=== PATIENT | female | born 1935 | race Caucasian/White ===

== ENCOUNTER 2023-12-11 18:41 | Emergency (ER) | payer MEDICARE, OTHER, SELFPAY ==
[2023-12-11 18:55] VITALS: BP 164/90
[2023-12-11 19:34] VITALS: BP 160/81
[2023-12-11 19:35] VITALS: BMI 27.9
[2023-12-11 19:58] LABS: % Basophils 0.4 % (0-2); % Eosinophils 0.3 % (0-6); % Lymphocytes 11.7 % (20.5-51.1); % Monocytes 6.9 % (1.7-9.3); % Neutrophils 79.7 % (42.2-75.2); Absolute Immature Granulocytes 0.1 10^3/uL (0-0.05); Absolute Lymphocytes 1.2 10^3/uL (1.2-3.4); Absolute Monocytes 0.7 10^3/uL (0.1-0.6); Absolute Neutrophils 7.9 10^3/uL (1.4-6.5); Hematocrit 40.8 % (37.0-47.0); Hemoglobin 14.2 g/dL (12.0-16.0); Mean Corp Hgb Conc. 34.8 g/dL (33.0-37.0); Mean Corpuscular Volume 91.9 fL (81.0-99.0); Nucleated Red Blood Cells % 0 %; Platelet Count 294 10^3/uL (130-400); Red Blood Cell Count 4.44 10^6/uL (4.20-5.40); Red Cell Dist. Width 13.2 % (11.5-14.5)
[2023-12-11 20:00] VITALS: BP 168/84
[2023-12-11 20:11] LABS: ALT (SGPT) 25 U/L (0-35); AST (SGOT) 27 U/L (14-36); Albumin 4.1 g/dl (3.5-5.0); Alkaline Phosphatase 83 U/L (38-126); Blood Urea Nitrogen 38 mg/dl (7-17); Calcium 9.5 mg/dl (8.4-10.2); Carbon Dioxide 32 mmol/L (22-30); Chloride 99 mmol/L (98-107); Estimated Creatinine Clearance 27 ml/min; Glucose 141 mg/dl (70-99); Sodium 134 mmol/L (135-145); Total Bilirubin 0.9 mg/dl (0.2-1.3); Total Protein 6.8 g/dl (6.3-8.2); eGFR 43.81
[2023-12-11 20:13] LABS: COVID-19 Antigen Negative (Negative)
[2023-12-11 20:25] LABS: NT-proBNP 255 pg/ml; Troponin I < 0.012 ng/ml
[2023-12-11 21:07] VITALS: BP 138/82
[2023-12-11] MEDS: NSS 500 IV (21:33)
[2023-12-11] MEDS: ATIVAN 0.5 MG IV (22:52)
[2023-12-12 00:02] VITALS: BP 91/52
--- NOTE | 2023-12-12 03:07 | ED.GENMED ---
History of Present Illness
General
Chief Complaint: Breathing Problem
Source: patient and family
Exam Limitations: none
Time Seen by Provider: 12/11/23 19:17
Nursing documentation reviewed up to this point in time: agreed with
Travel History
Have you had any contact with someone who has COVID-19?: No
Do you have any symptoms of coronavirus? Fever > 100 degrees, chills, cough, shortness of breath, sore throat, loss of taste or smell, muscle aches, or headache?: No
History of Present Illness
History of Present Illness:
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
evaluation of shortness of breath. Patient had a Mohs procedure on on the right side of her face. Patient says that since she had the procedure she has been very short of breath but that her symptoms intermittent. She says there is no
clear trigger or relieving factors. Family says it has been associated with significant anxiety. No chest pain. No coughing. No fevers or chills. Apparently patient thought potentially it could be related to doxycycline which was started
postoperatively after her Mohs procedure and so the dose of this was cut in half but her symptoms did not improve. Came to the emergency room for assessment. At the time my assessment she says she is not having shortness of breath but does feel
very anxious.
Past History
Past History
ED Past Medical History: HTN, Hypercholesterolemia, Other (arthritis) and Other (Chronic low back pain, narcotic dependent)
ED Past Surgical History: Cholecystectomy, Gynecological (Hysterectomy) and Orthopedic
Social History
Tobacco: Non-smoker
Alcohol: None
Personal:
Living: alone
Employment: Retired
Family History
Family History: Other (Noncontributory)
Review of Systems
Review of Systems
All Other Systems: ROS reviewed and negative except as documented in HPI and ROS
Constitutional: Reports chills; Denies fever
EENT: Denies sore throat or runny nose
Respiratory: Reports trouble breathing; Denies cough
Cardiac: Denies chest pain, diaphoresis or palpitations
ABD/GI: Denies abdominal pain, nausea, vomiting or diarrhea
: Denies flank pain
Musculoskeletal: Denies neck pain or back pain
Neurological: Denies headache, weakness or numbness
Psychiatric: Reports anxiety
Phy Exam
Physical Exam
Physical Exam:
General: Awake, alert, oriented x3 somewhat hard of hearing; no acute distress
Head: Normocephalic, atraumatic; she has a clean appearing incision with ecchymosis on the right side of her face along the lateral margin of the nose and into the maxillary region
Eyes: Conjunctiva normal, EOMI, pupils equal round reactive to light bilateral
Throat: Airway intact, handling secretions
Neck: Trachea midline, supple without meningismus
Lungs: Clear to auscultation bilaterally, no wheezing, rales, rhonchi
Heart: Regular rate and rhythm, no murmurs, gallops, or rubs
Abd: Soft, non distended, nontender
Neuro: Cranial nerves grossly intact, speech fluid
Skin: no rash
Extremities: No edema in extremities, equal pulses in all extremities
Scores
Heart Failure Risk
Heart Failure Risk Score: Not Applicable
Heart Score for Chest Pain Patients
STEMI patient?: Not applicable
Withdrawal Assessment of Alcohol
Withdrawal Assessment Completed?: Not applicable
Course
Orders/Labs/Results
Orders:
Orders
12/11/23 18:59
EKG [Electrocardiogram (*1)] Urgent
Reason for Study: Shortness of Breath
12/11/23 19:00
EKG- Treatment ONCE
12/11/23 19:21
CR Chest Portable - 1 View Urgent
Comment:
Reason For Exam: sob
Reason Study Needs to be Portable: Unable to Transport
12/11/23 19:48
COVID-19 Antigen Urgent
Source: Nasal Swab
Complete Blood Count/With Diff Urgent
Comprehensive Metabolic Panel Urgent
NT-proBNP Urgent
Troponin I Urgent
Influenza A+B Rapid Molecular Urgent
JOSE Source: Nasal Swab
Specimen Description:
12/11/23 21:18
CT Chest Pe Study Urgent
Comment:
Reason For Exam: sob, tachycardia, recent prolonged procedure
12/11/23 21:19
0.9% Sodium Chloride 500 ml [Nss] 500 ml IV BOLUS
12/11/23 22:45
Lorazepam [Ativan] 0.5 mg IV NOW STA
Abnormal Lab Results
12/11/23
19:48
MCH 32.0 H pg
(27.0-31.0)
Abs Immat Gran (auto) 0.1 H 10^3/uL
(0-0.05)
Absolute Neuts (auto) 7.9 H 10^3/uL
(1.4-6.5)
Absolute Monos (auto) 0.7 H 10^3/uL
(0.1-0.6)
Immature Gran % 1.0 H %
(0-0.5)
Neutrophils % 79.7 H %
(42.2-75.2)
Lymphocytes % 11.7 L %
(20.5-51.1)
Sodium 134 L mmol/L
(135-145)
Carbon Dioxide 32 H mmol/L
(22-30)
BUN 38 H mg/dl
(7-17)
Creatinine 1.2 H mg/dL
(0.6-1.0)
Glucose 141 H mg/dl
(70-99)
12/11/23 19:48
12/11/23 19:48
Vital Signs
Initial and Last Documented VS:
Initial Vital Signs
Temp Pulse Resp BP Pulse Ox
36.8 C 98 20 164/90 98
12/11/23 18:55 12/11/23 18:55 12/11/23 18:55 12/11/23 18:55 12/11/23 18:55
Last Documented Vital Signs
Temp Pulse Resp BP Pulse Ox
36.8 C 66 29 91/52 97
12/11/23 18:55 12/12/23 02:00 12/11/23 22:00 12/12/23 00:02 12/12/23 02:00
MDM/Problems Addressed
Differential Diagnosis Includes:
Pneumothorax, pneumonia, pulmonary embolism, CHF, anemia, anxiety
MDM/Problems Addressed:
88-year-old female presents for evaluation of intermittent shortness of breath and anxiety since a Mohs procedure on . Hypertensive but otherwise normal vitals on arrival�blood pressure normalized by my assessment. Physical exam as
documented notably lungs clear to auscultation bilaterally. Plan to place an IV check labs including CBC and CMP, troponin, BNP. Will swab for COVID and flu. Start with chest x-ray with a low threshold for CTA to rule out PE given her history of
DVT. Check an EKG. Monitor closely reassess after the above.
Labs reviewed: CBC shows no anemia, CMP shows mild ASTER no other clinically significant abnormalities. Her troponin is undetectable. proBNP is not significantly elevated. Her chest x-ray showed no acute disease and so patient was sent for CTA to
rule out PE this was negative for any acute pathology. EKG shows sinus rhythm. Patient very anxious on reassessment requesting some medication for anxiety she was given a low-dose of Ativan and was feeling much better she said her symptoms greatly
improved. She is now resting comfortably in bed. Family says she has not slept very much in the past 2 days because she has been very anxious. I think this is playing a large role in her symptoms. Explained to family that given her age
prescribing benzodiazepines especially given that she is on chronic opiates as potentially unsafe and so advised to follow-up with primary doctor to discuss further management. Will plan to discharge in the morning; family will pick her up until 6
AM.
Chronic conditions affecting care:
History of DVT�higher risk for thromboembolic disease
Acute Exacerbation and/or Progression of Chronic Illness:
Acutely hypertensive normalized with no intervention continue to monitor but no additional antihypertensive indicated at present
Acute Exacerbation and/or Progression of Chronic Illness: HTN
*Radiology
Radiology exam reviewed: preliminary read by ED provider and radiology read reviewed
*Pulse Oximetry
Patient hypoxic: no
*Critical Care Note
Total Time (30-74mins, 75-104mins- exclusive of procedures): Not Applicable
ED Attending Note
-
Portions of this chart may have been created with voice recognition software.� Occasional wrong word or��sound alike� substitutions may have occurred due to the inherent limitations of voice recognition software.
Discharge Plan
Departure
Patient Disposition: Home (Routine Discharge)
Date of Disposition: 12/12/23
Time of Disposition: 03:06
Admit to doctor: DC @ 6AM
Patient with high blood pressure during this ER visit?: Yes
Discharge Problem:
Anxiety, ASTRE (acute kidney injury), Dyspnea, Abnormal chest x-ray
Instructions: Shortness of Breath (Dyspnea) (DC)
Prescriptions:
No Action
aspirin 81 MG tablet,chewable
81 mg PO HS
levothyroxine 100 MCG tablet
100 mcg PO DAILY
paroxetine HCl 20 MG tablet
20 mg PO DAILY
hydrochlorothiazide 25 MG tablet
25 mg PO DAILY
Iron
65 mg PO DAILY@1400
oxycodone 10 MG tablet
10 mg PO Q4HPRN PRN (Reason: pain)
cholecalciferol (vitamin D3) 2,000 UNIT tablet
2,000 unit PO DAILY@1400
biotin 1,000 MCG tablet,chewable
1,000 mcg PO HS
atorvastatin 40 MG tablet
40 mg PO QPM Qty: 90 3RF
metoprolol succinate 12.5 MG tablet extended release 24 hr
12.5 mg PO DAILY Qty: 90 4RF
ranolazine 500 MG tablet extended release 12 hr
500 mg PO BID Qty: 60 6RF
pantoprazole [Protonix] 20 MG tablet,delayed release (DR/EC)
40 mg PO DAILY 14 Days Qty: 14 0RF
Referrals:
Ivory White PA-C [Family Provider] - Follow up in 2-3 days
Activity Restrictions/Additional Instructions:
YOU WERE FOUND TO HAVE AN INCIDENTAL NODULE NEAR YOUR TRACHEA ON X-RAY TODAY. YOU MUST FOLLOW UP WITH YOUR PRIMARY DOCTOR TO HAVE REPEAT IMAGING FOLLOW UP.
Thank you for visiting the Emergency Department at [facility].
1. Please schedule a follow up appointment as directed. Call first thing tomorrow morning to make an appointment.
2. If indicated, please take your medications as instructed and indicated on discharge paperwork.
3. If any of your symptoms do not improve, or persist, or become more severe within 6-12 hours, please return to the emergency department for further care.
4. Please return to the emergency department if you develop a headache, neck pain/stiffness, fever greater than 100.4F, chest pain, shortness of breath, persistent nausea, vomiting, slurred speech, difficulty walking, numbness/tingling, weakness,
signs of infection or any other symptoms that are worrisome to you.
Please call [phone] if you have any questions.
Interventions
Interventions:
*Risk Screen - Suicide Last Done: 12/11/23 18:55
*General Assessment Last Done: 12/11/23 18:55
*Neglect/Abuse Screening Last Done: 12/11/23 18:55
ED- Fall Risk Assessment Last Done: 12/11/23 19:35
*ED COVID-19 Vaccine History Last Done: 12/11/23 19:35
ED- Cardiac Assessment Last Done: 12/11/23 19:35
ED- Pulmonary Assessment Last Done: 12/11/23 19:35
--- NOTE | 2023-12-12 04:26 | EDRN ---
Found pt sitting in chair next to stretcher which had both side rails up. Pt had a blanket wrapped around her and said she had an accident. Pt removed wet clothing. This RN gave pt paper scrub top/pants and slipper socks which pt put on herself.
Pt given clothing bags and packaged her clothing. Pt requested viviana shamar to drink which was provided. Pt's gait in room steady. Pt got herself back on the stretcher declining this RN's assistance. Pt aware she is waiting for her family to
return and pick her up around 0600. Pt offers no complaints.
--- NOTE | 2023-12-12 06:13 | EDRN ---
D/C transport here. Pt changing into clothing that was brought from home.
== END 2023-12-12 06:21 | disposition home or self-care (01) ==
LOC: EMR 18:41
PROVIDERS: EMERGENCY PHYSICIAN Emergency Medicine; FAMILY PHYSICIAN Physician Assistant Medical
DX: F41.9 Anxiety disorder, unspecified (principal); N17.9 Acute kidney failure, unspecified; R06.00 Dyspnea, unspecified; R93.89 Abnormal findings on diagnostic imaging of other specified body structures; E78.00 Pure hypercholesterolemia, unspecified; I11.0 Hypertensive heart disease with heart failure; I50.9 Heart failure, unspecified
CPT/HCPCS: 99284; 96374; 71045; 71275; 80053; 83880; 84484; 85025; 87502; 87811; 93005; Q9967

== ENCOUNTER 2023-12-12 12:38 | Emergency (ER) | payer MEDICARE, OTHER, SELFPAY ==
[2023-12-12 12:55] VITALS: BP 139/78
[2023-12-12 13:22] LABS: % Basophils 0.3 % (0-2); % Eosinophils 0.2 % (0-6); % Immature Granulocytes 0.8 % (0-0.5); % Lymphocytes 11.9 % (20.5-51.1); % Monocytes 5.7 % (1.7-9.3); % Neutrophils 81.1 % (42.2-75.2); Absolute Immature Granulocytes 0.1 10^3/uL (0-0.05); Absolute Lymphocytes 1.2 10^3/uL (1.2-3.4); Absolute Monocytes 0.6 10^3/uL (0.1-0.6); Absolute Neutrophils 8.4 10^3/uL (1.4-6.5); Hemoglobin 14.1 g/dL (12.0-16.0); Mean Corp Hgb Conc. 34.4 g/dL (33.0-37.0); Mean Platelet Volume 9.1 fL (7.4-10.4); Nucleated Red Blood Cells % 0 %; Platelet Count 284 10^3/uL (130-400); Red Blood Cell Count 4.41 10^6/uL (4.20-5.40); Red Cell Dist. Width 13.2 % (11.5-14.5); White Blood Cell Count 10.4 10^3/uL (4.8-10.8)
[2023-12-12 13:34] LABS: ALT (SGPT) 26 U/L (0-35); AST (SGOT) 31 U/L (14-36); Albumin 3.9 g/dl (3.5-5.0); Alkaline Phosphatase 78 U/L (38-126); Blood Urea Nitrogen 33 mg/dl (7-17); Calcium 9.2 mg/dl (8.4-10.2); Carbon Dioxide 25 mmol/L (22-30); Chloride 100 mmol/L (98-107); Glucose 99 mg/dl (70-99); Sodium 132 mmol/L (135-145); Total Bilirubin 1.1 mg/dl (0.2-1.3); Total Protein 6.5 g/dl (6.3-8.2); eGFR 54.53
[2023-12-12 13:46] LABS: Troponin I 0.012 ng/ml
[2023-12-12 14:42] VITALS: BP 159/68
[2023-12-12 14:49] VITALS: BMI 28.5
[2023-12-12 15:00] VITALS: BP 150/62
--- NOTE | 2023-12-12 15:50 | ED.GENMED ---
History of Present Illness
General
Chief Complaint: Chest Pain
Source: patient and family
Exam Limitations: none
Time Seen by Provider: 12/12/23 15:08
Nursing documentation reviewed up to this point in time: agreed with
Travel History
Have you had any contact with someone who has COVID-19?: No
Do you have any symptoms of coronavirus? Fever > 100 degrees, chills, cough, shortness of breath, sore throat, loss of taste or smell, muscle aches, or headache?: No
History of Present Illness
History of Present Illness:
Patient is an 88-year-old female presents to the ER for evaluation. Patient was seen here last night for evaluation. Patient has a history of hypertension hyperlipidemia chronic back pain on opiates with spinal stimulator DVT not
anticoagulated. Patient recently had a Mohs procedure on her face , 4 days ago and family reports since then patient is been very anxious not able to sleep. Family reports was very anxious going into the surgery and has not been able to
sleep since. Patient had a full workup here in the ER last night including a normal CT to rule out PE. She was diagnosed with mild acute kidney insufficiency had an unremarkable troponin BNP was not significantly elevated. Patient is on chronic
opiates and therefore a prescription for benzo was not sent home with patient however she was given a low-dose of Ativan IV. Family reports she slept here until early this morning but as soon as they got her home she was up again very anxious.
Since being here they did go to patient's family doctor who prescribed her a very small dose of Ativan however they have not been able to get it filled yet and patient had another anxiety episode at home. They report patient felt very anxious and
complained of chest pain at the time however symptoms have since resolved. This is what prompted them to come back to the ER. They do report however patient is now once again calm here in the ER.
I called patient's pharmacy [facility] who reports the prescription reads a 0.5 mg of Ativan but give 1/2-1/4 of a tablet.
Patient presents awake alert and has no complaints. Denies any chest pain shortness of breath.
Past History
Past History
ED Past Medical History: HTN, Hypercholesterolemia, Other (arthritis) and Other (Chronic low back pain, narcotic dependent)
ED Past Surgical History: Cholecystectomy, Gynecological (Hysterectomy) and Orthopedic
Social History
Tobacco: Non-smoker
Alcohol: None
Personal:
Living: alone
Employment: Retired
Family History
Family History: Other (Noncontributory)
Review of Systems
Review of Systems
Allergies reviewed?: Yes
Other source history: family
All Other Systems: ROS reviewed and negative except as documented in HPI and ROS
Constitutional: Reports no symptoms; Denies fever, fatigue or chills
EENT: Reports no symptoms
Respiratory: Reports no symptoms
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
ABD/GI: Reports no symptoms
: Reports no symptoms
Musculoskeletal: Reports no symptoms
Skin: Reports no symptoms
Psychiatric: Reports no symptoms
Phy Exam
General Physical Exam
General Presentation: no apparent distress
General age: appears stated age
General Skin: warm and dry
General Habitus: elderly
General Mental: alert
General Hydration: appears well hydrated
Cardiovascular Exam
Cardiovascular Exam: regular rate/rhythm, no murmur and normal peripheral pulses
Pulmonary Exam
Pulmonary Exam: lungs clear and no respiratory distress
Neurological Exam
Neurological Exam: alert and oriented x3
Musculoskeletal Exam
Musculoskeletal Exam: full ROM
Skin Exam
Skin Exam: normal color and warm/dry
Psychiatric Exam
Psychiatric Exam: normal mood/affect
Scores
Heart Score for Chest Pain Patients
STEMI patient?: Not applicable
Course
Orders/Labs/Results
Orders:
Orders
12/12/23 12:47
Electrocardiogram (*1) Urgent
Reason for Study: Chest Pain
EKG- Treatment ONCE
12/12/23 13:10
Comprehensive Metabolic Panel Urgent
12/12/23 13:11
Complete Blood Count/With Diff Urgent
Troponin I Urgent
12/12/23 16:10
Lorazepam [Ativan] 0.5 mg PO NOW STA
Abnormal Lab Results
12/12/23 12/12/23
13:10 13:11
MCH 32.0 H pg
(27.0-31.0)
Abs Immat Gran (auto) 0.1 H 10^3/uL
(0-0.05)
Absolute Neuts (auto) 8.4 H 10^3/uL
(1.4-6.5)
Immature Gran % 0.8 H %
(0-0.5)
Neutrophils % 81.1 H %
(42.2-75.2)
Lymphocytes % 11.9 L %
(20.5-51.1)
Sodium 132 L mmol/L
(135-145)
BUN 33 H mg/dl
(7-17)
12/12/23 13:11
12/12/23 13:10
Vital Signs
Initial and Last Documented VS:
Initial Vital Signs
Temp Pulse Resp BP Pulse Ox
98.3 F 84 16 139/78 98
12/12/23 12:55 12/12/23 12:55 12/12/23 12:55 12/12/23 12:55 12/12/23 12:55
Last Documented Vital Signs
Temp Pulse Resp BP Pulse Ox
98.3 F 71 14 150/62 98
12/12/23 12:55 12/12/23 15:30 12/12/23 15:30 12/12/23 15:00 12/12/23 12:55
MDM/Problems Addressed
Differential Diagnosis Includes:
Not limited to anxiety
MDM/Problems Addressed:
Patient as document is an 88-year-old female who presents to the ER complaining of feeling very anxious and not being able to sleep. Patient was seen here last night into this morning and discharged home. She had a full workup which was negative
for PE cardiac troponin negative no acute cardiac or respiratory cause of the patient's symptoms. Patient has been very anxious since her Mohs surgery several days ago. She is on chronic pain medication was not given Ativan last night when she was
discharged however patient did see family doctor today who prescribed a very small dose. (Pt has not take her pain meds today).
Patient was prescribed Ativan 0.5 mg only to take: 0.25 mg or 0.125 mg as needed by pcp. I called [facility] in [place] to confirm dose.
Family reports since leaving PCPs office patient had an anxiety attack again and they were not even able to get this prescription filled. Currently she is very calm in the ER and has no complaints. Beings the patient had a full workup less than
24 hours ago and is in no acute distress here and is likely anxiety will give patient an oral dose here which will give patient's family a time to get patient home and settled unable to get the prescription from the pharmacy.
*Pulse Oximetry
Patient hypoxic: no
*EKG
Interpreted by ED Provider?: Yes
Interpretation: normal
Heart Rate: 81
Rate: normal
Rhythm: sinus
Ischemia: no ischemia
*Critical Care Note
Total Time (30-74mins, 75-104mins- exclusive of procedures): Not Applicable
Data Reviewed
Review of Other/Old Records Reveals: Other (ED visit from last night )
ED Attending Note
-
Portions of this chart may have been created with voice recognition software.� Occasional wrong word or��sound alike� substitutions may have occurred due to the inherent limitations of voice recognition software.
Discharge Plan
Departure
Patient Disposition: Home (Routine Discharge)
Date of Disposition: 12/12/23
Time of Disposition: 16:38
Patient with high blood pressure during this ER visit?: Yes
Condition: Fair
Covid-19: Not Applicable
Discharge Problem:
Anxiety
Instructions: Anxiety, Adult (DC)
Prescriptions:
No Action
aspirin 81 MG tablet,chewable
81 mg PO HS
levothyroxine 100 MCG tablet
100 mcg PO DAILY
paroxetine HCl 20 MG tablet
20 mg PO DAILY
hydrochlorothiazide 25 MG tablet
25 mg PO DAILY
Iron
65 mg PO DAILY@1400
oxycodone 10 MG tablet
10 mg PO Q4HPRN PRN (Reason: pain)
cholecalciferol (vitamin D3) 2,000 UNIT tablet
2,000 unit PO DAILY@1400
biotin 1,000 MCG tablet,chewable
1,000 mcg PO HS
atorvastatin 40 MG tablet
40 mg PO QPM Qty: 90 3RF
metoprolol succinate 12.5 MG tablet extended release 24 hr
12.5 mg PO DAILY Qty: 90 4RF
ranolazine 500 MG tablet extended release 12 hr
500 mg PO BID Qty: 60 6RF
pantoprazole [Protonix] 20 MG tablet,delayed release (DR/EC)
40 mg PO DAILY 14 Days Qty: 14 0RF
Referrals:
Ivory White PA-C [Family Provider] -
Activity Restrictions/Additional Instructions:
Be sure to take medication/Ativan as previously instructed by your family physician. Stay well-hydrated. Follow-up with family docto in next several days for reevaluation return if any worsening of symptoms
Interventions
Interventions:
*Risk Screen - Suicide Last Done: 12/12/23 14:49
*General Assessment Last Done: 12/12/23 14:49
*Neglect/Abuse Screening Last Done: 12/12/23 14:49
ED- Fall Risk Assessment Last Done: 12/12/23 14:49
*ED COVID-19 Vaccine History Last Done: 12/12/23 12:55
ED- Cardiac Assessment Last Done: 12/12/23 14:49
[2023-12-12] MEDS: ATIVAN 0.5 MG PO (16:15)
== END 2023-12-12 16:47 | disposition home or self-care (01) ==
LOC: EMR 12:38
PROVIDERS: Emergency Medicine; EMERGENCY PHYSICIAN Emergency Medicine; FAMILY PHYSICIAN Physician Assistant Medical
DX: F41.9 Anxiety disorder, unspecified (principal); I10 Essential (primary) hypertension; E78.00 Pure hypercholesterolemia, unspecified
CPT/HCPCS: 99284; 80053; 84484; 85025; 93005

== ENCOUNTER → 2024-05-18 12:17 | Outpatient (REF) | payer MEDICARE, OTHER, SELFPAY | LOC: PAVMRI 12:17 | PROVIDERS: ATTENDING PHYSICIAN Specialist; FAMILY PHYSICIAN Physician Assistant Medical | DX: M47.812 Spondylosis without myelopathy or radiculopathy, cervical region (principal) | CPT/HCPCS: 72141 ==

== ENCOUNTER 2024-05-29 11:22 | Emergency (ER) | payer MEDICARE, OTHER, SELFPAY ==
[2024-05-29 11:29] VITALS: BP 144/74
[2024-05-29 12:00] VITALS: BP 132/63
[2024-05-29 12:03] VITALS: BP 149/69
[2024-05-29 13:00] VITALS: BP 101/71
--- NOTE | 2024-05-29 13:03 | ED.MUSCINJ ---
HPI-Injury
General
Chief Complaint: Fall
Source: patient
Exam Limitations: none
Time Seen by Provider: 05/29/24 12:36
History of Present Illness-Injury
Initial Injury comments:
89-year-old female presents after trip and fall. She was going up the 2 steps from the garage into her house and tripped scraping her right byrd against the edge of the step. She also landed on her right shoulder. She complains of slight headache
and neck pain as well. She is not anticoagulated. No other complaints at this time
Past History
Past History
ED Past Medical History: HTN, Hypercholesterolemia, Other (arthritis) and Other (Chronic low back pain, narcotic dependent)
ED Past Surgical History: Cholecystectomy, Gynecological (Hysterectomy) and Orthopedic
Social History
Tobacco: Non-smoker
Alcohol: None
Personal:
Living: alone
Employment: Retired
Family History
Family History: Other (Noncontributory)
Phy Exam
Physical Exam
Physical Exam:
General: Well-appearing female no acute respiratory distress
HEENT: Normocephalic atraumatic
Heart: Regular rate and rhythm no murmurs
Lungs: Clear no wheeze
Abdomen soft nontender nondistended no guarding or rebound
Musculoskeletal exam: The patient is tender about the cervical spine at the superior aspect of the right shoulder. There is no deformities noted to the shoulder.
Injury Course
Orders/Labs/Results
Orders:
Orders
05/29/24 11:32
Shoulder, Right, Trauma [CR Shoulder, Trauma - Right] Urgent
Comment:
Reason For Exam: fall
05/29/24 12:51
CT Cervical Spine W/o Iv Contr Urgent
Comment:
Reason For Exam: fall, neck pain
CT Head W/o Iv Contrast Urgent
Comment:
Reason For Exam: fall
05/29/24 14:27
Oxycodone/Acetaminophen [Percocet 5/325] 1 tablet PO NOW STA
MDM/Problems Addressed
Differential Diagnosis Includes:
Fall with right shoulder neck pain and headache. She also has skin tears to the right byrd. Personally visualized x-rays of the right shoulder which demonstrate subluxation but no dislocation and no obvious fracture CT of the head and cervical
spine are pending local wound care provided to the skin tear but no sutures indicated
*Critical Care Note
Total Time (30-74mins, 75-104mins- exclusive of procedures): Not Applicable
Update Note
Update Note:
CT of the head and cervical spine showed no acute traumatic injury. X-ray of the shoulder shows no fracture but there is an AC joint separation. Patient will be placed in a sling advised supportive care stable for discharge
ED Attending Note
-
Portions of this chart may have been created with voice recognition software.� Occasional wrong word or��sound alike� substitutions may have occurred due to the inherent limitations of voice recognition software.
Discharge Plan
Departure
Patient Disposition: Home (Routine Discharge)
Date of Disposition: 05/29/24
Time of Disposition: 14:29
Patient with high blood pressure during this ER visit?: No
Discharge Problem:
Acromioclavicular (AC) joint injury
Instructions: Muscle and Bone Pain (DC)
Prescriptions:
No Action
aspirin 81 MG tablet,chewable
81 mg PO HS
levothyroxine 100 MCG tablet
100 mcg PO DAILY
paroxetine HCl 20 MG tablet
20 mg PO DAILY
hydrochlorothiazide 25 MG tablet
25 mg PO DAILY
Iron
65 mg PO DAILY@1400
oxycodone 10 MG tablet
10 mg PO Q4HPRN PRN (Reason: pain)
cholecalciferol (vitamin D3) 2,000 UNIT tablet
2,000 unit PO DAILY@1400
biotin 1,000 MCG tablet,chewable
1,000 mcg PO HS
atorvastatin 40 MG tablet
40 mg PO QPM Qty: 90 3RF
metoprolol succinate 12.5 MG tablet extended release 24 hr
12.5 mg PO DAILY Qty: 90 4RF
ranolazine 500 MG tablet extended release 12 hr
500 mg PO BID Qty: 60 6RF
pantoprazole [Protonix] 20 MG tablet,delayed release (DR/EC)
40 mg PO DAILY 14 Days Qty: 14 0RF
Referrals:
Ever Godinez MD [Active] -
Ivory White PA-C [Family Provider] -
Activity Restrictions/Additional Instructions:
Use sling for support. You may ice for swelling. Change dressing daily on the leg. Replace with antibacterial ointment and gauze dressing. Follow up with orthopedics for further evaluation if needed.
Interventions
Interventions:
*Risk Screen - Suicide Last Done: 05/29/24 11:29
*General Assessment Last Done: 05/29/24 11:29
*Neglect/Abuse Screening Last Done: 05/29/24 11:29
*ED COVID-19 Vaccine History Last Done: 05/29/24 12:00
ED-Musculoskeletal Assessment Last Done: 05/29/24 12:00
ED- Neurological Assessment Last Done: 05/29/24 12:00
ED-Skin Assessment Last Done: 05/29/24 12:00
Discharge Date and Time
Print Language: BULGARIAN
[2024-05-29 13:46] VITALS: BP 132/65
[2024-05-29 14:00] VITALS: BP 123/70
== END 2024-05-29 15:18 | disposition home or self-care (01) ==
LOC: EMR 11:22
PROVIDERS: EMERGENCY PHYSICIAN Emergency Medicine; FAMILY PHYSICIAN Physician Assistant Medical
DX: S49.91XA Unspecified injury of right shoulder and upper arm, initial encounter (principal); W01.0XXA Fall on same level from slipping, tripping and stumbling without subsequent striking against object, initial encounter; I10 Essential (primary) hypertension; E78.00 Pure hypercholesterolemia, unspecified; M19.90 Unspecified osteoarthritis, unspecified site; G89.29 Other chronic pain; Z90.49 Acquired absence of other specified parts of digestive tract; Z90.710 Acquired absence of both cervix and uterus
CPT/HCPCS: 99284; 70450; 72125; 73030

== ENCOUNTER 2024-06-28 13:34 | Inpatient (IN) | payer MEDICARE, OTHER, SELFPAY ==
[2024-06-27 16:54] VITALS: BP 134/76
[2024-06-27 17:20] LABS: % Basophils 0.1 % (0-2); % Immature Granulocytes 0.4 % (0-0.5); % Lymphocytes 5.7 % (20.5-51.1); % Monocytes 2.4 % (1.7-9.3); % Neutrophils 91.4 % (42.2-75.2); Absolute Immature Granulocytes 0.1 10^3/uL (0-0.05); Absolute Lymphocytes 0.7 10^3/uL (1.2-3.4); Absolute Monocytes 0.3 10^3/uL (0.1-0.6); Absolute Neutrophils 10.6 10^3/uL (1.4-6.5); Hematocrit 36.1 % (37.0-47.0); Hemoglobin 12.4 g/dL (12.0-16.0); Mean Corp Hgb Conc. 34.3 g/dL (33.0-37.0); Mean Corpuscular Hgb 31.1 pg (27.0-31.0); Mean Corpuscular Volume 90.5 fL (81.0-99.0); Nucleated Red Blood Cells % 0 %; Platelet Count 328 10^3/uL (130-400); Red Blood Cell Count 3.99 10^6/uL (4.20-5.40); Red Cell Dist. Width 13.2 % (11.5-14.5); White Blood Cell Count 11.6 10^3/uL (4.8-10.8)
[2024-06-27 17:32] LABS: ALT (SGPT) 12 U/L (0-35); AST (SGOT) 19 U/L (14-36); Albumin 4.3 g/dl (3.5-5.0); Alkaline Phosphatase 80 U/L (38-126); Blood Urea Nitrogen 33 mg/dl (7-17); Calcium 9.9 mg/dl (8.4-10.2); Carbon Dioxide 31 mmol/L (22-30); Chloride 97 mmol/L (98-107); Glucose 210 mg/dl (70-99); Potassium 4.7 mmol/L (3.5-5.1); Sodium 139 mmol/L (135-145); Total Bilirubin 0.6 mg/dl (0.2-1.3); Total Protein 6.7 g/dl (6.3-8.2); eGFR 54.19
[2024-06-27 17:42] LABS: Troponin I 0.026 ng/ml
[2024-06-27 18:17] VITALS: BP 129/66
[2024-06-27 19:40] VITALS: BMI 25.7
[2024-06-27] MEDS: HEPARIN 3500 UNITS IV (20:12)
--- NOTE | 2024-06-27 20:14 | HPS.HSE ---
Addendum entered and electronically signed by Tip Hutchins MD 06/27/24 20:46:
NOTE ENTERED ON WRONG PATIENT. DISREGARD THIS DOCUMENT.
NOTE ENTERED ON WRONG PATIENT. DISREGARD THIS DOCUMENT.
NOTE ENTERED ON WRONG PATIENT. DISREGARD THIS DOCUMENT.
NOTE ENTERED ON WRONG PATIENT. DISREGARD THIS DOCUMENT.
NOTE ENTERED ON WRONG PATIENT. DISREGARD THIS DOCUMENT.
NOTE ENTERED ON WRONG PATIENT. DISREGARD THIS DOCUMENT.
NOTE ENTERED ON WRONG PATIENT. DISREGARD THIS DOCUMENT.
NOTE ENTERED ON WRONG PATIENT. DISREGARD THIS DOCUMENT.
NOTE ENTERED ON WRONG PATIENT. DISREGARD THIS DOCUMENT.
NOTE ENTERED ON WRONG PATIENT. DISREGARD THIS DOCUMENT.
NOTE ENTERED ON WRONG PATIENT. DISREGARD THIS DOCUMENT.
NOTE ENTERED ON WRONG PATIENT. DISREGARD THIS DOCUMENT.
NOTE ENTERED ON WRONG PATIENT. DISREGARD THIS DOCUMENT.
Addendum entered and electronically signed by Tip Hutchins MD 06/27/24 20:17:
NOTE ENTERED ON WRONG PATIENT. DISREGARD THIS DOCUMENT.
Original Note:
Family Physician
-
Family Physician: Ivory White
Chief Complaint
-
weakness
History of Present Illness
76-year-old female past medical history of hypertension, hypercholesteremia, osteoarthritis, right breast cancer, neurogenic bladder presenting with weakness. Patient has had a UTI for the past several weeks with symptoms of urinary frequency and
has been on several antibiotics. She still has urinary frequency. She denies pain with urination. Denies fevers or chills. She has had difficulty with balance. She has had several falls and 3 falls within the past day. She did hit her head
with the fall but denies headache or nausea or vomiting. Denies any chest pain or shortness of breath.
Denies smoking or alcohol use.
Medical History
Past Medical History
Past Medical History: Reports Other (hypertension, hypercholesteremia, osteoarthritis, right breast cancer, neurogenic bladder )
Past Surgical History: Reports None
Social History
Tobacco: Non-smoker
Alcohol: None
Drug: None
Family History
Family History: Not pertinent
Allergies / Home Medications
Allergies reflects when Allergies were last updated in [facility].
Home Medications with original date entered in [facility]
Allergy/Medication List:
Allergies
Allergy/AdvReac Type Severity Reaction Status Date / Time
Cephalosporins Allergy Unknown Verified 06/27/24 16:57
clindamycin HCl Allergy Hives Verified 06/27/24 16:57
[From Cleocin]
clindamycin palmitate HCl Allergy Hives Verified 06/27/24 16:57
[From Cleocin]
clindamycin phosphate Allergy Hives Verified 06/27/24 16:57
[From Cleocin]
penicillin G Allergy Hives Verified 06/27/24 16:57
Penicillins Allergy Hives Verified 06/27/24 16:57
Sulfa (Sulfonamide Allergy Swelling Verified 06/27/24 16:57
Antibiotics)
sulfasalazine Allergy Unknown Verified 06/27/24 16:57
clindamycin HCl Allergy Unknown Hives Uncoded 06/27/24 16:57
clindamycin palmitate HCl Allergy Unknown Hives Uncoded 06/27/24 16:57
clindamycin phosphate Allergy Unknown Hives Uncoded 06/27/24 16:57
Home Medications
cholecalciferol (vitamin D3) 50 mcg (2,000 unit) tablet 2,000 unit PO DAILY 01/16/19
oxycodone 10 mg tablet 10 mg PO Q4HPRN PRN severe pain 01/16/19
acetaminophen 500 mg tablet (Tylenol Extra Strength) 1,000 mg PO Q6HPRN PRN mild pain 06/27/24
amlodipine 2.5 mg tablet 2.5 mg PO DAILY 06/27/24
atorvastatin 40 mg tablet 40 mg PO Q48H 06/27/24
cephalexin 500 mg capsule 500 mg PO BID 06/27/24
duloxetine 60 mg capsule,delayed release 60 mg PO HS 06/27/24
hydrochlorothiazide 50 mg tablet 50 mg PO Q48H 06/27/24
levothyroxine 88 mcg tablet 88 mcg PO DAILY 06/27/24
ondansetron HCl 4 mg tablet 4 mg PO Q6HPRN PRN nausea 06/27/24
pantoprazole 20 mg tablet,delayed release (Protonix) 40 mg PO DAILYPRN PRN gerd 06/27/24
Review of Systems
-
History Source: Patient
A 12 point ROS was completed and negative except as noted: Yes
Constitutional: Reports No Symptoms
EENT: Reports No Symptoms
Respiratory: Reports No Symptoms
Cardiac: Reports No Symptoms
Abdomen/GI: Reports No Symptoms
: Reports No Symptoms
Musculoskeletal: Reports No Symptoms
Skin: Reports No Symptoms
Neurological: Reports No Symptoms
Endocrine: Reports No Symptoms
Hematologic/Lymphatic: Reports No Symptoms
Psych: Reports No Symptoms
Physical Exam
Vital Signs
Vital Signs
Temp Pulse Resp BP Pulse Ox
99.1 F 76 17 129/66 95
06/27/24 16:54 06/27/24 19:30 06/27/24 19:30 06/27/24 18:17 06/27/24 19:30
Physical Exam
General: Well Developed, Well Nourished and No Apparent Distress
HEENT: NormoCephalic, Moist mucous membranes and Atraumatic
Respiratory: Clear
Cardiac: S1/S2 and Regular Rhythm; No Murmur or Rub
GI: Soft, Non Tender, Non Distended and Normal Bowel Sounds; No Organomegaly
Rectal: Deferred by Provider
Musculoskeletal: No Clubbing, No Cyanosis and No Edema
Skin: No Rash
Neuro: Nonfocal/grossly intact
Laboratory Results
-
06/27/24 17:10
06/27/24 17:10
Laboratory Results
Total Bilirubin 0.6 mg/dl (0.2-1.3) 06/27/24 17:10
AST 19 U/L (14-36) 06/27/24 17:10
ALT 12 U/L (0-35) 06/27/24 17:10
Alkaline Phosphatase 80 U/L (38-126) 06/27/24 17:10
Troponin I 0.026 ng/ml 06/27/24 17:10
Data Reviewed
-
Lab Data: Labs Reviewed by me
Old Records: Reviewed
Impression/Plan
-
IMPRESSION:
PLAN:
# Ambulatory dysfunction/falls secondary to persistent Pseudomonas urinary tract infection
-CT head shows no acute abnormality
-UA shows greater than 100 WBC, slightly cloudy urine
-Urine culture from 06/15 shows Pseudomonas
-[place] urine culture pending
-Cefepime
Essential hypertension
-Continue amlodipine
-Continue losartan
Hypercholesterolemia
-Continue statin
Osteoarthritis
Psychiatric history
-Continue olanzapine, fluoxetine, bupropion
History of neurogenic bladder as per record
-Bladder scan protocol
Full code
DVT prophylaxis�heparin
Regular diet
[2024-06-27] MEDS: HEPARIN 25000 UNITS/250 ML IV (20:18)
--- NOTE | 2024-06-27 20:21 | ED.GENMED ---
History of Present Illness
General
Chief Complaint: Chest Pain
Source: patient
Exam Limitations: none
Time Seen by Provider: 06/27/24 18:14
Nursing documentation reviewed up to this point in time: agreed with
History of Present Illness
History of Present Illness:
89-year-old female with a history of CAD, DVT not anticoagulated, hypertension and hyperlipidemia
Here after having 3 episodes of exertional chest discomfort today starting around noon. Patient says she was picking up the cushions on her deck outside and started feeling pain in her neck into her upper chest that felt very uncomfortable. It was
8 out of 10. She took a nitroglycerin and within a few minutes the patient had resolution of her symptoms. She rested for a period of time and then couple of hours later got up and was moving around and noticed the pain returned again in her neck
into her chest which was resolved again with a dose of nitroglycerin. Around 5 PM she had another episode with exertion as well. She was not doing anything strenuous but each episode resolved with nitroglycerin and she has not had any additional
symptoms since. She also has not done any walking or lifting. Patient called reprint sorter and was instructed to come in. She has had a cath in 2019 showing nonocclusive disease in her LAD, she had no angioplasty or stents then.
She currently is pain-free, she does not have any nausea or vomiting, lightheadedness, sweatiness, syncope, shortness of breath.
Past History
Past History
ED Past Medical History: HTN, Hypercholesterolemia, Other (arthritis) and Other (Chronic low back pain, narcotic dependent)
ED Past Surgical History: Cholecystectomy, Gynecological (Hysterectomy) and Orthopedic
Social History
Tobacco: Non-smoker
Alcohol: None
Personal:
Living: alone
Employment: Retired
Family History
Family History: Other (Noncontributory)
Review of Systems
Review of Systems
Allergies reviewed?: Yes
All Other Systems: Not applicable
Phy Exam
Physical Exam
Physical Exam:
GENERAL: Alert , in no apparent distress
EYE: pupils equal and reactive
NECK: Supple
ENT: o/p clr, mmm.
CARDIAC: Regular rate and rhythm . No appreciated murmur
LUNGS: Clear breath sounds bilaterally, no acute respiratory distress, no wheezes/rales/rhonchi
ABDOMEN: Soft, without focal tenderness, no r/g, no cvat, normal bowel sounds
NEUROLOGICAL: Alert and oriented, no focal neuro deficits
SKIN: Warm and dry, skin intact.
MUSCULOSKELETAL: No edema, well perfused. neg simi's sign
PSYCH: Normal and appropriate interaction.
Scores
Heart Score for Chest Pain Patients
STEMI patient?: No
History: Moderately Suspicious
ECG: Nonspecific Repolarization
Age: >/= 65 years
Risk Factors: >/= 3 Risk Factors or History of CAD
Troponin: </= Normal Limit
Heart Score for Chest Pain Patients: 6
Heart Score Risk: 20.3% MACE over next 6 weeks
Course
Orders/Labs/Results
Orders:
Orders
06/27/24 16:54
Electrocardiogram (*1) Urgent
Reason for Study: Chest Pain
EKG- Treatment ONCE
06/27/24 16:59
CR Chest - 2 Views Urgent
Comment:
Reason For Exam: chest pain
06/27/24 17:10
Complete Blood Count/With Diff Urgent
Comprehensive Metabolic Panel Urgent
Troponin I Urgent
06/27/24 19:48
Heparin 3,500 units IV NOW STA
Nursing to Place Non Medication Order As Directed
Physician Order: PTT 6 hours after initial start of Heparin infusion
06/27/24 19:53
PTT Urgent
Comment: Obtain baseline before beginning heparin infusion if not already collected
06/27/24 20:00
Heparin 48388 Units/250 ml 25,000 units in 250 ml IV PER PROTOCOL
Weight to be used for heparin protocol in kilograms (kg):: 57.6
Protocol:: Cardiac Tx/Acute Coronary
PTT Goal Range to be used:: PTT 73 to 111 seconds
Order type:: Initial
INITIAL Infusion Dose (UNITS/KG/hr) & then follow protocol:: 12 units/kg/hr
Infusion Dose in UNITS/hr & then follow protocol (UNITS/hr):: 700
INFUSION RATE in mL/hr & then follow protocol (mL/hr):: 7
PTT less than or equal to 64 seconds:: Increase rate by 200 units/hr (+ 2 mL/hr)
PTT 64.1 to 72.9 seconds:: Increase rate by 100 units/hr (+ 1 mL/hr)
PTT 73 to 111 seconds:: Target Range. No change in rate.
PTT 111.1 to 130.9 seconds:: Decrease rate by 100 units/hr (- 1 mL/hr)
PTT 131 to 199.9 seconds:: HOLD for 1 hr. Then decrease rate by 200 units/hr (- 2 mL/hr)
PTT greater than or equal to 200 seconds:: HOLD for 2 hrs & Notify Provider. Then decrease by 200 units/hr (-
2 mL/hr)
Lab follow-up:: Each change, PTT q6h until 2 consecutive are therapeutic. Then PTT
daily.
Abnormal Lab Results
06/27/24
17:10
WBC 11.6 H 10^3/uL
(4.8-10.8)
RBC 3.99 L 10^6/uL
(4.20-5.40)
Hct 36.1 L %
(37.0-47.0)
MCH 31.1 H pg
(27.0-31.0)
Abs Immat Gran (auto) 0.1 H 10^3/uL
(0-0.05)
Absolute Neuts (auto) 10.6 H 10^3/uL
(1.4-6.5)
Absolute Lymphs (auto) 0.7 L 10^3/uL
(1.2-3.4)
Neutrophils % 91.4 H %
(42.2-75.2)
Lymphocytes % 5.7 L %
(20.5-51.1)
Chloride 97 L mmol/L
(98-107)
Carbon Dioxide 31 H mmol/L
(22-30)
BUN 33 H mg/dl
(7-17)
Glucose 210 H mg/dl
(70-99)
06/27/24 17:10
06/27/24 17:10
Vital Signs
Initial and Last Documented VS:
Initial Vital Signs
Temp Pulse Resp BP Pulse Ox
99.1 F 89 16 134/76 97
06/27/24 16:54 06/27/24 16:54 06/27/24 16:54 06/27/24 16:54 06/27/24 16:54
Last Documented Vital Signs
Temp Pulse Resp BP Pulse Ox
99.1 F 76 17 129/66 95
06/27/24 16:54 06/27/24 19:30 06/27/24 19:30 06/27/24 18:17 06/27/24 19:30
MDM/Problems Addressed
Differential Diagnosis Includes:
Angina, ACS, PE less likely PE
MDM/Problems Addressed:
89 y/o F
h/o nonocclusive CAD on cath 2018; has nitro which she rarely uses
3 episodes of exertional chest pain starting in neck and into chest 05/12 and resolved with nitro x 3 today; started at noon;
last episode 5 pm, no pain now
stable vitals;
ekg looks slightly different with subtle st dep <1 mm v2, t wave flat and biphasic anteriorly;
1st trop 0.02
Patient's story is very concerning for unstable angina. I discussed the case with Dr. Fuentes on-call for cardiology who did recommend the patient be admitted for troponin trending and heparinization. Patient has no contraindications to heparin
*Critical Care Note
Total Time (30-74mins, 75-104mins- exclusive of procedures): Not Applicable
ED Attending Note
-
Portions of this chart may have been created with voice recognition software.� Occasional wrong word or��sound alike� substitutions may have occurred due to the inherent limitations of voice recognition software.
Discharge Plan
Departure
Patient Disposition: Admit
Date of Disposition: 06/27/24
Time of Disposition: 19:25
Admit to: Telemetry
Presentation/result/management discussed w/ accepting MD/DO: Hospitalist
Condition: Fair
Covid-19: Not Applicable
Discharge Problem:
Angina pectoris, unstable
Prescriptions:
No Action
oxycodone 10 MG tablet
10 mg PO Q4HPRN PRN (Reason: severe pain)
Patient Comments:
06/27/24: last filled 06/26/24 for 150 tablets over 30 days
cholecalciferol (vitamin D3) 2,000 UNIT tablet
2,000 unit PO DAILY
hydrochlorothiazide 50 mg Tablet
50 mg PO Q48H
ondansetron HCl 4 mg Tablet
4 mg PO Q6HPRN PRN (Reason: nausea)
amlodipine 2.5 mg Tablet
2.5 mg PO DAILY
acetaminophen [Tylenol Extra Strength] 500 mg Tablet
1,000 mg PO Q6HPRN PRN (Reason: mild pain)
levothyroxine 88 mcg Tablet
88 mcg PO DAILY
cephalexin [Keflex] 500 mg Capsule
500 mg PO BID
Patient Comments:
06/27/24: filled 06/26/24, to take for 7 days
duloxetine 60 mg Capsule,Delayed Release(Dr/Ec)
60 mg PO HS
atorvastatin 40 MG tablet
40 mg PO Q48H
pantoprazole [Protonix] 20 MG tablet,delayed release (DR/EC)
40 mg PO DAILYPRN PRN (Reason: gerd)
Referrals:
Ivory White PA-C [Family Provider] -
Interventions
Interventions:
*Risk Screen - Suicide Last Done: 06/27/24 16:54
*General Assessment Last Done: 06/27/24 19:40
*Neglect/Abuse Screening Last Done: 06/27/24 19:40
ED- Fall Risk Assessment Last Done: 06/27/24 19:40
*ED COVID-19 Vaccine History Last Done: 06/27/24 19:40
ED- Cardiac Assessment Last Done: 06/27/24 19:40
Discharge Date and Time
Print Language: UKRAINIAN
--- NOTE | 2024-06-27 20:40 | HPS.HSE ---
Family Physician
-
Family Physician: Ivory White
Chief Complaint
-
chest pain
History of Present Illness
89-year-old female past medical history of hypertension, hypercholesteremia, arthritis, chronic lower back pain, presenting with chest pain described as an ache this morning. Pain radiated to her neck as well as her right arm. She took
nitroglycerin with improvement in the pain and another nitroglycerin at 5 PM. She denies any chest pain currently. She did have some nausea at the time of symptoms. She denies shortness of breath. She denies sweating.
As per daughter patient had palpitations in the past and had a cardiac catheterization 2019 which was unremarkable.
Patient has burning with urination for the past 3 to 4 days and she was started on Keflex yesterday
She has family history of father with [place].
She denies smoking or alcohol use.
Medical History
Past Medical History
Past Medical History: Reports Other (hypertension, hypercholesteremia, arthritis, chronic lower back pain)
Past Surgical History: Reports Other (Cholecystectomy, Gynecological (Hysterectomy) and Orthopedic )
Social History
Tobacco: Non-smoker
Alcohol: None
Drug: None
Family History
Family History: Not pertinent
Allergies / Home Medications
Allergies reflects when Allergies were last updated in [facility].
Home Medications with original date entered in [facility]
Allergy/Medication List:
Allergies
Allergy/AdvReac Type Severity Reaction Status Date / Time
Cephalosporins Allergy Unknown Verified 06/27/24 16:57
clindamycin HCl Allergy Hives Verified 06/27/24 16:57
[From Cleocin]
clindamycin palmitate HCl Allergy Hives Verified 06/27/24 16:57
[From Cleocin]
clindamycin phosphate Allergy Hives Verified 06/27/24 16:57
[From Cleocin]
penicillin G Allergy Hives Verified 06/27/24 16:57
Penicillins Allergy Hives Verified 06/27/24 16:57
Sulfa (Sulfonamide Allergy Swelling Verified 06/27/24 16:57
Antibiotics)
sulfasalazine Allergy Unknown Verified 06/27/24 16:57
clindamycin HCl Allergy Unknown Hives Uncoded 06/27/24 16:57
clindamycin palmitate HCl Allergy Unknown Hives Uncoded 06/27/24 16:57
clindamycin phosphate Allergy Unknown Hives Uncoded 06/27/24 16:57
Home Medications
cholecalciferol (vitamin D3) 50 mcg (2,000 unit) tablet 2,000 unit PO DAILY 01/16/19
oxycodone 10 mg tablet 10 mg PO Q4HPRN PRN severe pain 01/16/19
acetaminophen 500 mg tablet (Tylenol Extra Strength) 1,000 mg PO Q6HPRN PRN mild pain 06/27/24
amlodipine 2.5 mg tablet 2.5 mg PO DAILY 06/27/24
atorvastatin 40 mg tablet 40 mg PO Q48H 06/27/24
cephalexin 500 mg capsule 500 mg PO BID 06/27/24
duloxetine 60 mg capsule,delayed release 60 mg PO HS 06/27/24
hydrochlorothiazide 50 mg tablet 50 mg PO Q48H 06/27/24
levothyroxine 88 mcg tablet 88 mcg PO DAILY 06/27/24
ondansetron HCl 4 mg tablet 4 mg PO Q6HPRN PRN nausea 06/27/24
pantoprazole 20 mg tablet,delayed release (Protonix) 40 mg PO DAILYPRN PRN gerd 06/27/24
Review of Systems
-
History Source: Patient
A 12 point ROS was completed and negative except as noted: Yes
Constitutional: Reports No Symptoms
EENT: Reports No Symptoms
Respiratory: Reports No Symptoms
Cardiac: Reports See HPI
Abdomen/GI: Reports No Symptoms
: Reports No Symptoms
Musculoskeletal: Reports No Symptoms
Skin: Reports No Symptoms
Neurological: Reports No Symptoms
Endocrine: Reports No Symptoms
Hematologic/Lymphatic: Reports No Symptoms
Psych: Reports No Symptoms
Physical Exam
Vital Signs
Vital Signs
Temp Pulse Resp BP Pulse Ox
99.1 F 76 17 129/66 95
06/27/24 16:54 06/27/24 19:30 06/27/24 19:30 06/27/24 18:17 06/27/24 19:30
Physical Exam
General: Well Developed, Well Nourished and No Apparent Distress
HEENT: NormoCephalic, Moist mucous membranes and Atraumatic
Respiratory: Clear
Cardiac: S1/S2 and Regular Rhythm; No Murmur or Rub
GI: Soft, Non Tender, Non Distended and Normal Bowel Sounds; No Organomegaly
Rectal: Deferred by Provider
Musculoskeletal: No Clubbing, No Cyanosis and No Edema
Skin: No Rash
Neuro: Nonfocal/grossly intact
Laboratory Results
-
06/27/24 17:10
06/27/24 17:10
Laboratory Results
APTT 28.0 Sec (23.4-35.0) 06/27/24 19:53
Total Bilirubin 0.6 mg/dl (0.2-1.3) 06/27/24 17:10
AST 19 U/L (14-36) 06/27/24 17:10
ALT 12 U/L (0-35) 06/27/24 17:10
Alkaline Phosphatase 80 U/L (38-126) 06/27/24 17:10
Troponin I 0.026 ng/ml 06/27/24 17:10
Data Reviewed
-
Lab Data: Labs Reviewed by me
Old Records: Reviewed
Impression/Plan
-
IMPRESSION:
PLAN:
# Unstable angina versus NSTEMI
-Symptoms relieved by nitroglycerin
-Troponin 0.26
-EKG shows atrial paced rhythm, LVH, subtle T wave changes
-Aspirin given
-Heparin drip
-Check A1c and lipid panel
-Check echo
-Cardiology consulted
# Urinary tract infection
-Today is day 2 of Keflex
Essential hypertension
-Continue hydrochlorothiazide, amlodipine
Hypercholesterolemia
-Continue statin
Arthritis
Chronic lower back pain
-Continue oxycodone, duloxetine
GERD
-Continue Protonix
Hypothyroidism
-Continue levothyroxine
DNR/DNI
DVT prophylaxis�heparin drip
Regular diet
[2024-06-27 21:00] VITALS: BP 125/62
[2024-06-27 21:31] VITALS: BP 140/71; BMI 25.7
[2024-06-27] MEDS: ASPIRIN 325 MG PO (21:42)
--- NOTE | 2024-06-27 22:03 | PTCARENOTE ---
Patient admitted from ED. Arrived on floor with heparin gtt infusing. Patient AAO x3, on RA, in no acute distress. Bed alarm is active. Patient oriented to room and call oosrio within reach.
[2024-06-27 22:29] LABS: HDL Cholesterol 56 mg/dl; LDL Cholesterol, Calculated 64 mg/dl; Total Cholesterol 142 mg/dl (50-199); Triglyceride 111 mg/dl (10-149); Very Low Density Lipoprotein 22 mg/dl (0-30)
[2024-06-27 22:35] LABS: Troponin I 0.029 ng/ml
[2024-06-27] MEDS: ROXICODONE 10 MG PO (23:35)
[2024-06-27 23:40] VITALS: BP 138/77
[2024-06-28 03:27] VITALS: BP 132/71
[2024-06-28 03:42] LABS: % Basophils 0.1 % (0-2); % Immature Granulocytes 0.4 % (0-0.5); % Lymphocytes 7.3 % (20.5-51.1); % Monocytes 3.9 % (1.7-9.3); % Neutrophils 88.3 % (42.2-75.2); Absolute Lymphocytes 0.8 10^3/uL (1.2-3.4); Absolute Monocytes 0.4 10^3/uL (0.1-0.6); Absolute Neutrophils 9.7 10^3/uL (1.4-6.5); Hematocrit 34.3 % (37.0-47.0); Hemoglobin 11.8 g/dL (12.0-16.0); Mean Corp Hgb Conc. 34.4 g/dL (33.0-37.0); Nucleated Red Blood Cells % 0 %; Platelet Count 266 10^3/uL (130-400); Red Blood Cell Count 3.69 10^6/uL (4.20-5.40); Red Cell Dist. Width 13.1 % (11.5-14.5)
[2024-06-28 03:59] LABS: ALT (SGPT) 11 U/L (0-35); AST (SGOT) 17 U/L (14-36); Albumin 3.7 g/dl (3.5-5.0); Alkaline Phosphatase 70 U/L (38-126); Blood Urea Nitrogen 28 mg/dl (7-17); Calcium 9.4 mg/dl (8.4-10.2); Carbon Dioxide 30 mmol/L (22-30); Chloride 100 mmol/L (98-107); Estimated Creatinine Clearance 33 ml/min; Glucose 130 mg/dl (70-99); Potassium 3.7 mmol/L (3.5-5.1); Sodium 139 mmol/L (135-145); Total Bilirubin 0.4 mg/dl (0.2-1.3); eGFR > 60.00
[2024-06-28 06:56] VITALS: BP 141/71
[2024-06-28 07:38] LABS: Glycohemoglobin (HgbA1c) 5.8 % (4.0-5.6)
[2024-06-28 08:15] LABS: APTT 53.2 Sec (23.4-35.0)
[2024-06-28 08:40] LABS: Troponin I 0.031 ng/ml
[2024-06-28] MEDS: LOW STRENGTH ASPIRIN 81 MG PO (09:04)
[2024-06-28 12:05] VITALS: BP 126/63
--- NOTE | 2024-06-28 13:26 | W.PN.HOSP.TC ---
Today's Communication/Plan
-
see outlined plan
Assessment / Plan
Assessment / Plan
Assessment:
chest pain
Unstable Angina
- symptoms relieved by NTG
- trop flat <0.04
- Echo: Normal left ventricular chamber size. Moderately reduced left ventricular systolic function. Global hypokinesis with regional variability. LV ejection fraction is 38% by volumetric assessment. Mild concentric left ventricular
hypertrophy. Stage I diastolic dysfunction suggestive of abnormal relaxation. Normal right ventricular size and function. Mild mitral regurgitation. Aortic sclerosis without stenosis. Mild to moderate aortic regurgitation.
- remains on IV Heparin drip - requires intensive monitoring of PTTs
- DCA cards consulted
UTI diagnosed OP
- continue Keflex BID x 1 week, day 12/07
Essential hypertension
- continue hydrochlorothiazide, amlodipine
Hypercholesterolemia
- continue statin
Arthritis
Chronic lower back pain
- continue oxycodone, duloxetine
GERD
- continue Protonix
Hypothyroidism
- continue levothyroxine
DVT ppx: Heparin drip
Code: DNR/DNI
Anticipated Discharge: > 48 hours
Subjective/Interval History
-
Date of Service: June 28, 2024
no chest pain or SOB
Objective Data
-
Labs:
Laboratory Results
06/28/24 06/28/24 06/28/24
02:22 03:25 07:47
WBC 11.0 H
Hgb 11.8 L
Hct 34.3 L
Plt Count 266
APTT 76.0 H 53.2 H
Sodium 139
Potassium 3.7
Chloride 100
Carbon Dioxide 30
BUN 28 H
Creatinine 0.9
Glucose 130 H
Calcium 9.4
Total Bilirubin 0.4
AST 17
ALT 11
Alkaline Phosphatase 70
09/26/24
15:09
WBC
Hgb
Hct
Plt Count
APTT Pending
Sodium
Potassium
Chloride
Carbon Dioxide
BUN
Creatinine
Glucose
Calcium
Total Bilirubin
AST
ALT
Alkaline Phosphatase
Vital Signs:
Vital Signs
Temp Pulse Resp BP Pulse Ox
98.1 F 79 18 126/63 95
06/28/24 12:05 06/28/24 12:05 06/28/24 12:05 06/28/24 12:05 06/28/24 12:05
Physical Exam
-
General: No Apparent Distress
HEENT: Normocephalic and Atraumatic
Respiratory: Negative Wheezes
Cardiac: Regular Rhythm and S1/S2
GI: Soft and Nontender
Genito-urinary: No Costovertebral Tender
Musculoskeletal: No Edema
Neuro: AO x 3
Hematologic / Lymphatic: No Lymphadenopathy
Psych: Calm
Data Reviewed
-
Total Time Spent with Patient (in minutes): 51
Labs: Labs Reviewed by me
--- NOTE | 2024-06-28 13:52 | CON.CAR ---
Addendum entered and electronically signed by Norm Aguilar MD 06/28/24 16:14:
I saw and examined the patient.
The [employer]'s note was reviewed and I agree with the note.
Comment:
GEN: No distress, awake, Ox3
HEENT: supple, anicteric, mmm
LUNGS: CTA, no wheezes/rales
CV: Reg, S1/S2, 1/6 syst LSB, no gallop
ABD: soft, BS+, NT/ND
EXT: No edema
NEURO: Gross non-focal
SKIN: No rash
Plan:
89-year-old female with past medical history of hypertension, hyperlipidemia, and diabetes presents with chest pains. Over the past 36 hours she has had 3 separate episodes of chest discomfort. These seem worse with exertion. 1 episode had
associated radiation to her right arm with vomiting. She took nitroglycerin and symptoms improved. Cardiac troponins are flat at 0.03 range. Previous cardiac cath in 2019 was overall unremarkable. She is currently pain-free. EKG with sinus
rhythm with nonspecific ST abnormalities.
Echocardiagram today revealed newly depressed ejection fraction of 38% with global hypokinesis.
After lengthy discussion with the patient we agreed to proceed with left heart cardiac catheterization to evaluate her symptoms.
Cont ASA, heparin, atorvastatin.
She has some bradycardia so we will hold off on beta-armin therapy for now and she has not tolerated Imdur or Norvasc in the past.
Tx of UTI per Medical team
Original Note:
Consultation
Consultation Request
Date/Time Consultation Performed: 06/28/24
Requesting Provider: Dr. Hutchins
Performing Provider: Becky Suarez PA-C for Dr. Aguilar
Reason for Consultation: CP
Medical History
-
Chief Complaint: CP
History of Present Illness:
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 She reports some intermittent pain over the last month or so, but has
previously been very brief. She reports then over the last 36 hours she has had 3 episodes of chest discomfort associated with 'feeling off.' States she took nitro and each time pain was improved. She reports some associated R arm pain and had
episode of vomiting associated with one episode. Since taking last nitro she has been pain free. Currently on IV heparin. Trops 0.02-0.03 range. She has not been able to tolerate imdur or norvasc in past. ranexa was cost prohibitive.
PMH:
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
HTN
HLD
DM2
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
Hypothyroidism
Past Medical History
Past Medical History: Other (in HPI)
Social History
Tobacco: Non-Smoker
Alcohol: None
Living: Alone
Family History
Family History: CAD, Cancer and Other (CHF)
Allergies / Home Medications
Allergy/AdvReac Type Severity Reaction Status Date / Time
Cephalosporins Allergy Unknown Verified 06/27/24 16:57
clindamycin HCl Allergy Hives Verified 06/27/24 16:57
[From Cleocin]
clindamycin palmitate HCl Allergy Hives Verified 06/27/24 16:57
[From Cleocin]
clindamycin phosphate Allergy Hives Verified 06/27/24 16:57
[From Cleocin]
penicillin G Allergy Hives Verified 06/27/24 16:57
Penicillins Allergy Hives Verified 06/27/24 16:57
Sulfa (Sulfonamide Allergy Swelling Verified 06/27/24 16:57
Antibiotics)
sulfasalazine Allergy Unknown Verified 06/27/24 16:57
�Medication �Instructions �Recorded �Confirmed �Type
cholecalciferol (vitamin D3) 50 2,000 unit PO DAILY 01/16/19 06/27/24 History
mcg (2,000 unit) tablet
oxycodone 10 mg tablet 10 mg PO Q4HPRN PRN severe pain 01/16/19 06/27/24 History
acetaminophen 500 mg tablet 1,000 mg PO Q6HPRN PRN mild pain 06/27/24 06/27/24 History
(Tylenol Extra Strength)
amlodipine 2.5 mg tablet 2.5 mg PO DAILY 06/27/24 06/27/24 History
atorvastatin 40 mg tablet 40 mg PO Q48H 06/27/24 06/27/24 History
cephalexin 500 mg capsule 500 mg PO BID 06/27/24 06/27/24 History
duloxetine 60 mg capsule,delayed 60 mg PO HS 06/27/24 06/27/24 History
release
hydrochlorothiazide 50 mg tablet 50 mg PO Q48H 06/27/24 06/27/24 History
levothyroxine 88 mcg tablet 88 mcg PO DAILY 06/27/24 06/27/24 History
ondansetron HCl 4 mg tablet 4 mg PO Q6HPRN PRN nausea 06/27/24 06/27/24 History
pantoprazole 20 mg tablet,delayed 40 mg PO DAILYPRN PRN gerd 06/27/24 06/27/24 History
release (Protonix)
Review of Systems
-
History Source: Patient
All other systems: Negative unless noted
Physical Exam
Vital Signs
Temp Pulse Resp BP Pulse Ox
98.1 F 79 18 126/63 95
06/28/24 12:05 06/28/24 12:05 06/28/24 12:05 06/28/24 12:05 06/28/24 12:05
Lab Results
06/28/24 03:25
06/28/24 03:25
Troponin I 0.031 ng/ml 06/28/24 07:47
Physical Exam
General: No Apparent Distress, Comfortable and Other (sitting in chair)
HEENT: Normocephalic, Anicteric and Moist Mucous Membranes
Respiratory: Clear and Non Labored Respirations
Cardiac: S1/S2 and Regular Rhythm
GI: Soft, Non Tender, Non Distended and Normal Bowel Sounds
Musculoskeletal: No Clubbing, No Cyanosis and No Edema
Skin: Warm and Dry
Neuro: AO x 3
Impression / Plan
-
Primary Hot Car Operator: Dr. Fraser
Assessment:
CP
Suspected USA
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
Sinus bradycardia
HTN
HLD
DM2
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
Hypothyroidism
History of multiple back surgeries with spinal stimulator in place
UTI, started abx 06/27/24
ECHO 09/22/2022: EF 57%, mild concentric LVH, trace MR, mild AR, mild TR, PAP 21 mmHg
ECHO 06/28/24: Global hypokinesis, EF 38%, mild concentric LVH, stage I diastolic dysfunction, mild MR, aortic sclerosis, mild to moderate AR
Plan:
-Patient presents to ER with what appears to be escalating anginal symptoms. 3 episodes in the last 36 hours, all relieved by sublingual nitro
-History of cath in 2018 with small vessel CAD and last stress test lexiscan in 2021 which did not show mild anterior reversible defects however improved with prone imaging, more suggestive of STA, EF preserved.
-Continue aspirin, IV heparin. Remains chest pain-free
-LDL 64. Resume outpatient Lipitor
-In sinus rhythm on review of telemetry. EKG without acute ischemic change
-Echo with new cardiomyopathy, EF 38%, results reviewed with patient at bedside 06/28
-Cath procedure reviewed with patient in detail. She is n.p.o. after midnight for cath in a.m.
-no BB with sinus bradycardia, HRs into high 40s at times. she had previously been on norvasc however stopped due to LE edema. did not tolerate imdur due to headaches. ranexa previously not cost affordable. await results of cath to determine medical
therapy
-Treatment of recent UTI per primary service. Patient states she started antibiotics on 06/27, and only took 1 dose
-Discussed with nursing
Data Reviewed
-
EKG: Tracing Personally Visualized and interpreted
Medical Tests (Nuc Med, Echo etc): Report Reviewed by me
Labs: Labs Reviewed by me
Old Records: Reviewed
[2024-06-28 15:44] LABS: APTT 64.3 Sec (23.4-35.0)
[2024-06-28 15:52] VITALS: BP 144/73
--- NOTE | 2024-06-28 16:12 | CM ---
Alert awake oriented patient who lives alone in a 1 story home with 3 steps to enter .She is independent in driving and all activates of daily living.She was offered Vn she declined .
No adaptive devices.
Had VN in past . No SNF hx
Pharmacy [facility]
PCP Dr White
PLAN Home with no anticipated needs
--- NOTE | 2024-06-28 17:11 | W.PN.UPDATE ---
Update Note
Progress Note Update
Talk to patient's daughter by phone for 5 minutes 27 seconds and reviewed cardiac catheterization in light of echo findings. Patient's daughter is in agreement.
[2024-06-28] MEDS: LIPITOR 40 MG PO (17:46)
[2024-06-28 19:21] VITALS: BP 150/83
[2024-06-28] MEDS: CYMBALTA DELAYED RELEASE 60 MG PO (21:23)
[2024-06-28] MEDS: KEFLEX 500 MG PO (21:23)
[2024-06-28 22:47] LABS: APTT 76.6 Sec (23.4-35.0)
[2024-06-28] MEDS: ROXICODONE 10 MG PO (22:56)
[2024-06-28] MEDS: HEPARIN 25000 UNITS/250 ML IV (22:58)
[2024-06-28 23:03] VITALS: BP 141/86
[2024-06-29] VITALS (16 sets, daily range): BP systolic 116–159; BP diastolic 55–89
[2024-06-29 06:04] LABS: APTT 75.5 Sec (23.4-35.0)
[2024-06-29] MEDS: SYNTHROID 88 MCG PO (06:13)
[2024-06-29] MEDS: ROXICODONE 10 MG PO ×3 (06:21→23:20)
[2024-06-29 06:27] LABS: % Basophils 0.1 % (0-2); % Immature Granulocytes 0.7 % (0-0.5); % Lymphocytes 7.2 % (20.5-51.1); % Monocytes 4.1 % (1.7-9.3); % Neutrophils 87.9 % (42.2-75.2); Absolute Immature Granulocytes 0.1 10^3/uL (0-0.05); Absolute Lymphocytes 0.8 10^3/uL (1.2-3.4); Absolute Monocytes 0.5 10^3/uL (0.1-0.6); Absolute Neutrophils 10.2 10^3/uL (1.4-6.5); Hematocrit 39.3 % (37.0-47.0); Hemoglobin 13.4 g/dL (12.0-16.0); Mean Corp Hgb Conc. 34.1 g/dL (33.0-37.0); Mean Corpuscular Hgb 31.8 pg (27.0-31.0); Mean Corpuscular Volume 93.3 fL (81.0-99.0); Mean Platelet Volume 10.4 fL (7.4-10.4); Nucleated Red Blood Cells % 0 %; Platelet Count 338 10^3/uL (130-400); Red Blood Cell Count 4.21 10^6/uL (4.20-5.40); Red Cell Dist. Width 13.1 % (11.5-14.5); White Blood Cell Count 11.6 10^3/uL (4.8-10.8)
[2024-06-29 06:36] LABS: Blood Urea Nitrogen 30 mg/dl (7-17); Calcium 9.8 mg/dl (8.4-10.2); Carbon Dioxide 28 mmol/L (22-30); Chloride 98 mmol/L (98-107); Estimated Creatinine Clearance 38 ml/min; Glucose 129 mg/dl (70-99); Potassium 3.6 mmol/L (3.5-5.1); Sodium 141 mmol/L (135-145); eGFR > 60.00
[2024-06-29] MEDS: KEFLEX 500 MG PO ×2 (08:53→20:46)
[2024-06-29] MEDS: LOW STRENGTH ASPIRIN 81 MG PO (08:54)
--- NOTE | 2024-06-29 12:24 | W.PN.HOSP.TC ---
Today's Communication/Plan
-
continue IV heparin
proceed to cardiac cath
Assessment / Plan
Assessment / Plan
Assessment:
chest pain
Unstable Angina
- symptoms relieved by NTG
- trop flat <0.04
- Echo: Normal left ventricular chamber size. Moderately reduced left ventricular systolic function. Global hypokinesis with regional variability. LV ejection fraction is 38% by volumetric assessment. Mild concentric left ventricular
hypertrophy. Stage I diastolic dysfunction suggestive of abnormal relaxation. Normal right ventricular size and function. Mild mitral regurgitation. Aortic sclerosis without stenosis. Mild to moderate aortic regurgitation.
- remains on IV Heparin drip - requires intensive monitoring of PTTs
- Cath planned today
- DCA cards following
UTI diagnosed OP
- continue Keflex BID x 1 week, day 01/07
- no intolerance to Keflex per daughter
Essential hypertension
- continue hydrochlorothiazide, amlodipine
Hypercholesterolemia
- continue statin
Arthritis
Chronic lower back pain
- continue oxycodone, duloxetine
GERD
- continue Protonix
Hypothyroidism
- continue levothyroxine
DVT ppx: Heparin drip
Code: DNR/DNI
Anticipated Discharge: 24 - 48 hours
Subjective/Interval History
-
Date of Service: June 29, 2024
denies any new complaints at present but reported chest pain last evening, similar to presenting episode of chest pain
for cath today
Objective Data
-
Labs:
Laboratory Results
06/29/24
05:25
WBC 11.6 H
Hgb 13.4
Hct 39.3
Plt Count 338 D
APTT 75.5 H
Sodium 141
Potassium 3.6
Chloride 98
Carbon Dioxide 28
BUN 30 H
Creatinine 0.8
Glucose 129 H
Calcium 9.8
Vital Signs:
Vital Signs
Temp Pulse Resp BP Pulse Ox
98.3 F 84 18 135/72 96
06/29/24 11:08 06/29/24 11:08 06/29/24 11:08 06/29/24 11:08 06/29/24 11:08
I&O
06/28/24 06/29/24 06/30/24
06:59 06:59 06:59
Intake Total 0 / 0
Balance 0 / 0
Physical Exam
-
General: No Apparent Distress
HEENT: Normocephalic and Atraumatic
Respiratory: Negative Wheezes
Cardiac: Regular Rhythm and S1/S2
GI: Soft and Nontender
Genito-urinary: No Costovertebral Tender
Musculoskeletal: No Edema
Neuro: AO x 3
Psych: Calm
Data Reviewed
-
Total Time Spent with Patient (in minutes): 51
Labs: Labs Reviewed by me
--- NOTE | 2024-06-29 14:40 | ITS.CL.CATH ---
[facility] - Catheterization
Cardiac Catheterization
Procedure Report:
LEFT HEART CATHETERIZATION
Date of Procedure: June 29, 2024
Referring: Alex Aguilar MD
PROCEDURES:
1. Left heart catheterization, coronary angiogram.
2. Ultrasound-guided access
INDICATION: New cardiomyopathy with LVEF of 38% and global hypokinesis with multiple episodes of chest discomfort, concerning for unstable angina. Troponin flat at 0.03.
ACCESS:
1. Right radial artery, 5 [place] sheath, under ultrasound guidance. Given significant right subclavian tortuosity, this access had to be aborted.
2. Right common femoral artery, 5 [place] sheath, under ultrasound guidance using a micropuncture kit.
HEMODYNAMICS : (mmHg)
AO (s/d) : 149/74
CORONARY FINDINGS
Dominance: Right. Heavily calcified coronary arteries.
Left Main: The left main artery is a medium caliber vessel which gives rise to the left anterior descending artery and the left circumflex artery. Distal left main has a 40% stenosis.
LAD: Diffuse disease with a 70% proximal stenosis. D2 is very small in caliber with diffuse up to 70% ostial to proximal stenosis.
Circumflex: The left circumflex artery is a medium caliber vessel which gives rise to 2 major obtuse marginal branches and a left posterolateral branch. Ostial left circumflex has eccentric 30-40% stenosis. Proximal left circumflex has a hazy,
heavily calcified 85% stenosis at the level of the takeoff of OM1.
RCA: The RCA is heavily calcified, moderate caliber, dominant vessel which gives rise to the right posterior descending artery and the right posterolateral system.. There is diffuse proximal to mid RCA stenosis, heavily calcified up to 85%. Ostial
RPDA is 100% chronic total occlusion with robust [id number] collaterals. A very small distal RPL branch has a 90% stenosis, less than 1 millimeter vessel.
SEDATION: 59 minutes of procedural sedation was utilized. An independent medical csr was present to assist with and help manage the patient's level of consciousness and physiologic status.
RADIATION SUMMARY: Fluoro Time (min): 6.8, Dose (mGy): 316.01, DAP (Gy.cm2) : 23.03
Closure Device:
1. 6 [place] Angio-Seal over the right common femoral arterial access site with successful hemostasis.
2. Vascular band over the right radial artery, 10 cc of air.
CONCLUSIONS
1. Heavily calcified coronary arteries with significant multivessel coronary artery disease.
RECOMMENDATIONS
1. At 89 given significant frailty and comorbid conditions with overall poor target, heart team discussion was had with Dr. Oliver Lee who also reviewed her heart catheterization and we do not think she would be a good candidate for consideration
for CABG.
2. With no obvious culprit lesions and poor PCI targets for now we will advocate for aggressive medical therapy to treat her symptoms.
3. Aggressive management of cardiovascular risk factors.
4. Goal-directed medical therapy for ischemic cardiomyopathy.
5. Referral for outpatient cardiac rehab.
Copy to: Alex Aguilar MD
--- NOTE | 2024-06-29 15:37 | CM ---
Priced Ranexa thru patient's pharmacy. Estimated cost is $13.01/mo.
TT to KEISHA to notify.
--- NOTE | 2024-06-29 15:57 | CM ---
Addendum entered by GINGER Morales 06/29/24 16:17:
Met w/ patient at bedside. Pt. awake, alert.
Pt. reports that she feels well and is hopeful for DC as soon as she is medically ready.
She has family that reside up the street and can assist as needed.
Will cont. to follow.
Original Note:
Patient transferred to IVU from CATH.
Noted initial assessment information from prior CM. Pt. resides alone in a private, 1 story home w/ 3 SWAPNIL. Functionally, patient is indep. w/ ADls, mobility without the use of any assisted device.
Antic. DC to home once medically stable.
CM to follow for any DC needs.
[2024-06-29] MEDS: LIPITOR 40 MG PO (17:20)
[2024-06-29 17:42] LABS: COVID-19 Antigen Negative (Negative)
--- NOTE | 2024-06-29 19:22 | PTCARENOTE ---
Rec'd pt from lab engineer with R-radial band CDI and R femoral artery CDI. Pt was transfer from and one TELE monitor in NSR with VSS and AAAO*3. Pt instructed on strict bedrest and limb restrictions post heart cath. Pt denies any pain or
discomfort. Pt agreed to watch for bleeding from sites. Pt currently resting in bed with call osorio in reach. Post angio work list started
[2024-06-29] MEDS: CYMBALTA DELAYED RELEASE 60 MG PO (20:46)
[2024-06-29] MEDS: COREG 3.125 MG PO (20:46)
[2024-06-30] VITALS (7 sets, daily range): BP systolic 129–142; BP diastolic 58–72; PULSE 72–90; O2SAT 97
--- NOTE | 2024-06-30 01:24 | PTCARENOTE ---
R groin and R radial dressing CDI- + pulses. Bed alarm placed for safety after pt had a small confusion episode forgetting she was in the hospital. reoriented without issues ring appropriately since- bed alarm remains in place at this time. SR/SB
HR down to the 40s overnight.
[2024-06-30 05:47] LABS: APTT 27.7 Sec (23.4-35.0)
[2024-06-30 05:48] LABS: % Basophils 0.1 % (0-2); % Immature Granulocytes 0.7 % (0-0.5); % Lymphocytes 8.9 % (20.5-51.1); % Monocytes 4.2 % (1.7-9.3); % Neutrophils 86.1 % (42.2-75.2); Absolute Immature Granulocytes 0.1 10^3/uL (0-0.05); Absolute Lymphocytes 0.7 10^3/uL (1.2-3.4); Absolute Monocytes 0.4 10^3/uL (0.1-0.6); Absolute Neutrophils 7.1 10^3/uL (1.4-6.5); Hematocrit 37.4 % (37.0-47.0); Hemoglobin 12.9 g/dL (12.0-16.0); Mean Corp Hgb Conc. 34.5 g/dL (33.0-37.0); Mean Corpuscular Hgb 31.2 pg (27.0-31.0); Mean Corpuscular Volume 90.6 fL (81.0-99.0); Nucleated Red Blood Cells % 0 %; Red Blood Cell Count 4.13 10^6/uL (4.20-5.40); Red Cell Dist. Width 13.1 % (11.5-14.5); White Blood Cell Count 8.3 10^3/uL (4.8-10.8)
[2024-06-30] MEDS: ROXICODONE 10 MG PO (05:54)
[2024-06-30] MEDS: SYNTHROID 88 MCG PO (05:54)
[2024-06-30 06:04] LABS: Blood Urea Nitrogen 37 mg/dl (7-17); Calcium 9.4 mg/dl (8.4-10.2); Carbon Dioxide 23 mmol/L (22-30); Chloride 101 mmol/L (98-107); Estimated Creatinine Clearance 38 ml/min; Glucose 143 mg/dl (70-99); Potassium 4.2 mmol/L (3.5-5.1); Sodium 138 mmol/L (135-145); eGFR > 60.00
[2024-06-30] MEDS: LOW STRENGTH ASPIRIN 81 MG PO (09:51)
[2024-06-30] MEDS: COREG 3.125 MG PO (09:51)
[2024-06-30] MEDS: NORVASC 2.5 MG PO (09:51)
[2024-06-30] MEDS: KEFLEX 500 MG PO (09:51)
[2024-06-30] MEDS: LASIX 20 MG PO (09:51)
--- NOTE | 2024-06-30 10:25 | W.PN.CARDCBS ---
Today's Communication / Plan
-
Continue Coreg. Add lisinopril. Stop Norvasc.
Continue aspirin and amlodipine.
Plan is to treat coronary artery disease medically.
Would continue Lasix 20 mg daily.
Will arrange cardiology follow-up. Stable for discharge from cardiology standpoint.
Impression / Plan
-
Primary Auto Striper: Dr. Fraser
Assessment:
CP
Suspected USA
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
Sinus bradycardia
HTN
HLD
DM2
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
Hypothyroidism
History of multiple back surgeries with spinal stimulator in place
UTI, started abx 06/27/24
ECHO 09/22/2022: EF 57%, mild concentric LVH, trace MR, mild AR, mild TR, PAP 21 mmHg
ECHO 06/28/24: Global hypokinesis, EF 38%, mild concentric LVH, stage I diastolic dysfunction, mild MR, aortic sclerosis, mild to moderate AR
cath 06/29/24: Heavily calcified coronary arteries with significant multivessel disease. 40% left main, 70% proximal LAD, 85% left circumflex, 85% mid RCA with 100% occluded RPDA
Plan:
Cath results reviewed with the patient. She has significant coronary artery disease but with her age and abnormal troponins at this point we would recommend medical therapy.
Continue Coreg. Will stop amlodipine and add lisinopril 5 mg daily. If her blood pressure tolerates could further titrate medication as outpatient.
Creatinine currently normal
Continue Lasix 20 mg daily.
Continue aspirin and atorvastatin.
Okay for discharge from cardiology standpoint. Will arrange follow-up.
Progress Note - Auto Striper
Subjective
Date of Service: June 30, 2024
She overall feels well with no chest pains or shortness of breath.
Objective
Labs:
06/30/24 05:06
09/28/24 05:06
Labs
Hgb 12.9 g/dL (12.0-16.0) 06/30/24 05:06
Hct 37.4 % (37.0-47.0) 06/30/24 05:06
Plt Count 10^3/uL (130-400) 06/30/24 05:06
APTT 27.7 Sec (23.4-35.0) 06/30/24 05:06
Sodium 138 mmol/L (135-145) 06/30/24 05:06
Potassium 4.2 mmol/L (3.5-5.1) 06/30/24 05:06
BUN 37 mg/dl (7-17) H 06/30/24 05:06
Creatinine 0.8 mg/dL (0.6-1.0) 06/30/24 05:06
Glucose 143 mg/dl (70-99) H 06/30/24 05:06
Troponins
06/27/24 06/27/24 06/28/24
17:10 22:05 03:25
Troponin I 0.026 0.029 0.030
06/28/24
07:47
Troponin I 0.031
Vital Signs and I&O:
Vital Signs
Temp Pulse Resp BP Pulse Ox
98.0 F 77 18 142/71 94
06/30/24 08:31 06/30/24 09:01 06/30/24 08:31 06/30/24 09:01 06/30/24 08:31
Vital Signs
Temp Pulse Resp BP Pulse Ox
98.0 F 77 18 142/71 94
06/30/24 08:31 06/30/24 09:01 06/30/24 08:31 06/30/24 09:01 06/30/24 08:31
Intake & Output
06/28/24 06/29/24 06/30/24 07/01/24
06:59 06:59 06:59 06:59
Intake Total 0 / 0
Balance 0 / 0
Physical Exam
Physical Exam
GEN: No distress, awake, Ox3
HEENT: supple, anicteric, mmm
LUNGS: CTA, no wheezes/rales
CV: Reg, S1/S2, 1/6 syst LSB, no gallop
ABD: soft, BS+, NT/ND
EXT: No edema
NEURO: Gross non-focal
SKIN: No rash
[2024-06-30] MEDS: ZESTRIL 5 MG PO (12:44)
--- NOTE | 2024-06-30 14:04 | W.PN.HOSP.TC ---
Today's Communication/Plan
-
dc to home
Assessment / Plan
Assessment / Plan
Assessment:
chest pain
Unstable Angina
- symptoms relieved by NTG
- trop flat <0.04
- Echo: Normal left ventricular chamber size. Moderately reduced left ventricular systolic function. Global hypokinesis with regional variability. LV ejection fraction is 38% by volumetric assessment. Mild concentric left ventricular hypertrophy.
Stage I diastolic dysfunction suggestive of abnormal relaxation. Normal right ventricular size and function. Mild mitral regurgitation. Aortic sclerosis without stenosis. Mild to moderate aortic regurgitation.
- s/p cath: Heavily calcified coronary arteries with significant multivessel coronary artery disease.
- continue Coreg/Lisinopril/Lasix
- continue Lipitor/ASA
UTI diagnosed OP
- continue Keflex BID x 1 week, day 02/06
- no intolerance to Keflex per daughter
Essential hypertension
- stop HCTZ/Amlodipine
Hypercholesterolemia
- continue statin
Arthritis
Chronic lower back pain
- continue oxycodone, duloxetine
GERD
- continue Protonix
Hypothyroidism
- continue levothyroxine
DVT ppx: Heparin drip
Code: DNR/DNI
More than 30 minutes spent in discharge including
Final examination of the patient
Summarizing hospital stay
Instructions for continuing care to all relevant caregivers
Preparation of discharge records, prescriptions, and referral forms
Total time spent (in minutes): 41
Anticipated Discharge: Today
Subjective/Interval History
-
Date of Service: June 30, 2024
denies any new complaints at present
Objective Data
-
Labs:
Laboratory Results
06/30/24
05:06
WBC 8.3
Hgb 12.9
Hct 37.4
Plt Count
APTT 27.7
Sodium 138
Potassium 4.2
Chloride 101
Carbon Dioxide 23
BUN 37 H
Creatinine 0.8
Glucose 143 H
Calcium 9.4
Vital Signs:
Vital Signs
Temp Pulse Resp BP Pulse Ox
98.1 F 53 16 142/71 95
06/30/24 12:20 06/30/24 12:00 06/30/24 12:20 06/30/24 09:01 06/30/24 12:20
I&O
06/29/24 06/30/24 07/01/24
06:59 06:59 06:59
Intake Total 0 / 0
Balance 0 / 0
Physical Exam
-
General: No Apparent Distress
HEENT: Normocephalic and Atraumatic
Respiratory: Negative Wheezes
Cardiac: Regular Rhythm and S1/S2
GI: Soft and Nontender
Musculoskeletal: No Edema
Neuro: AO x 3
Psych: Calm
Data Reviewed
-
Total Time Spent with Patient (in minutes): 41
Labs: Labs Reviewed by me
--- NOTE | 2024-06-30 14:14 | W.DS.TRANS ---
DC Summary - Production Estimator
-
Discharge Instructions:
Discharge Diagnosis/Procedures Cardiac cath
Diet Low Cholesterol
Driving Restrictions No driving for 24 hours
Instructions:
Stand-Alone Forms: DC Instructions- Cath/EP Lab
Changes to Home Medications: Yes
Discharge Medications:
DC Medications w/original date entered in [employer]
cholecalciferol (vitamin D3) 50 mcg (2,000 unit) tablet 2,000 unit PO DAILY 01/16/19
oxycodone 10 mg tablet 10 mg PO Q4HPRN PRN severe pain 01/16/19
acetaminophen 500 mg tablet (Tylenol Extra Strength) 1,000 mg PO Q6HPRN PRN mild pain 06/27/24
amlodipine 2.5 mg tablet 2.5 mg PO DAILY 06/27/24
atorvastatin 40 mg tablet 40 mg PO Q48H 06/27/24
cephalexin 500 mg capsule 500 mg PO BID 06/27/24
duloxetine 60 mg capsule,delayed release 60 mg PO HS 06/27/24
hydrochlorothiazide 50 mg tablet 50 mg PO Q48H 06/27/24
levothyroxine 88 mcg tablet 88 mcg PO DAILY 06/27/24
ondansetron HCl 4 mg tablet 4 mg PO Q6HPRN PRN nausea 06/27/24
pantoprazole 20 mg tablet,delayed release (Protonix) 40 mg PO DAILYPRN PRN gerd 06/27/24
aspirin 81 mg chewable tablet 81 mg PO DAILY #100 tabs 06/30/24
atorvastatin 40 mg tablet 40 mg PO QPM #30 tabs 06/30/24
carvedilol 3.125 mg tablet 3.125 mg PO BID #60 tabs 06/30/24
furosemide 20 mg tablet 20 mg PO DAILY #30 tabs 06/30/24
lisinopril 5 mg tablet 5 mg PO DAILY #30 tabs 06/30/24
Home Medication Changes
HCTZ and Amlodipine stopped
Pending Results: No
Total time spent discharging patient (in min): 42
--- NOTE | 2024-06-30 16:30 | PTCARENOTE ---
D/C instructions discussed w/pt & pt's daughter; IV line & Telemetry line D/C'd. Pt left w/personal belongings including cellphone, clothing & own oxycodone tablets retrieved from pharmacy by this RN. Pt transported out by staff via wheelchair.
== END 2024-06-30 16:45 | disposition home or self-care (01) | DRG 287 ==
LOC: IVU 13:34
PROVIDERS: Emergency Medicine; Internal Medicine; Physician Assistant; ADMITTING PHYSICIAN Hospitalist; ATTENDING PHYSICIAN Internal Medicine; EMERGENCY PHYSICIAN Student in an Organized Health Care Education/Training Program; FAMILY PHYSICIAN Physician Assistant Medical; OTHER PHYSICIAN Internal Medicine Cardiovascular Disease
PROC: B2151ZZ Fluoroscopy of Left Heart using Low Osmolar Contrast (ICD-10-PCS; 2024-06-29)
PROC: 4A023N7 Measurement of Cardiac Sampling and Pressure, Left Heart, Percutaneous Approach (ICD-10-PCS; 2024-06-29)
PROC: B2111ZZ Fluoroscopy of Multiple Coronary Arteries using Low Osmolar Contrast (ICD-10-PCS; 2024-06-29)
DX: I25.110 Atherosclerotic heart disease of native coronary artery with unstable angina pectoris (principal); N39.0 Urinary tract infection, site not specified; I11.0 Hypertensive heart disease with heart failure; I50.9 Heart failure, unspecified; E78.00 Pure hypercholesterolemia, unspecified; M19.90 Unspecified osteoarthritis, unspecified site; K21.9 Gastro-esophageal reflux disease without esophagitis; E03.9 Hypothyroidism, unspecified; Z66 Do not resuscitate; M54.50 Low back pain, unspecified; G89.29 Other chronic pain; Z11.52 Encounter for screening for COVID-19
CPT/HCPCS: 71046; 80048; 80053; 80061; 83036; 84484; 85025; 85730; 87811; 93005; 93306; 93454; 96365; 97162; 97166; 99152; 99153; 99285; C1760; C1769; C1894; Q9967

== ENCOUNTER 2024-08-10 04:49 | Inpatient (IN) | payer MEDICARE, OTHER, SELFPAY ==
[2024-08-10] VITALS (24 sets, daily range): BP systolic 109–157; BP diastolic 48–98; BMI 26.8; BMI 26.6
--- NOTE | 2024-08-10 01:32 | ED.GENMED ---
History of Present Illness
General
Chief Complaint: Chest Pain
Source: patient
Exam Limitations: none
Time Seen by Provider: 08/10/24 01:17
History of Present Illness
History of Present Illness:
This is a 89 year old female that comes in with c/o chest pain. State that last night at 6pm she went outside into the cold and she got chest pain. States that she took a Nitro and it went away. States that she went to [place] and sh was fine. States
that she came out side again and she got chest pain again. This was around 9:30 when she got home and she took Nitro X 2-5 min apart. States that it went away and then at 1am she was awaked with pain and she had pain in the right arm. States that
there is no pain in the right arm now and her chest pain was 8/10. States that she felt SOB with the chest pain and has a slight headache. Denies any fever, chills, abd pain, nausea, vomiting, diarrhea, dizziness, urinary burning
Past History
Past History
ED Past Medical History: CAD, HTN, Hypercholesterolemia, Other (arthritis, Back pain, Sleep apnea, DVT right arm, Anemia, Ovarian cyst) and Other (Chronic low back pain, narcotic dependent)
ED Past Surgical History: Cholecystectomy, Gynecological (Hysterectomy), Orthopedic (Spinal stimulator, Laminectomy), Urological (Bladder sling) and Other (Cataracts, Moh's procedure)
Social History
Tobacco: Non-smoker
Alcohol: None
Personal:
Living: alone
Employment: Retired
Family History
Family History: Other (Noncontributory)
Review of Systems
Review of Systems
All Other Systems: ROS reviewed and negative except as documented in HPI and ROS
Constitutional: Reports no symptoms; Denies fever or chills
EENT: Reports no symptoms
Respiratory: Reports trouble breathing; Denies cough
Cardiac: Reports chest pain
ABD/GI: Reports no symptoms; Denies abdominal pain, nausea, vomiting or diarrhea
: Reports no symptoms; Denies dysuria, frequency or urgency
Musculoskeletal: Reports no symptoms
Skin: Reports no symptoms
Neurological: Reports headache; Denies dizzy
Psychiatric: Reports no symptoms
Phy Exam
General Physical Exam
General Presentation: no apparent distress
General age: appears stated age
General Skin: warm and dry
General Habitus: elderly
General Mental: alert
General Hydration: appears well hydrated
ENT Exam
ENT Exam: TM's normal, pharynx normal and neck supple
Eye Exam
Eye Exam: EOMI
Cardiovascular Exam
Cardiovascular Exam: regular rate/rhythm, no edema and normal peripheral pulses
Pulmonary Exam
Pulmonary Exam: no respiratory distress, chest non tender, no rhonchi, no wheezing, no cough and other (Fine rales at bases)
Gastrointestinal Exam
Gastrointestinal Exam: normal bowel sounds, non tender, soft, no organomegaly, no pulsatile mass and non distended
Musculoskeletal Exam
Musculoskeletal Exam: full ROM and no edema
Skin Exam
Skin Exam: normal color, warm/dry, no rash and no petechia
Psychiatric Exam
Psychiatric Exam: normal mood/affect
Scores
Heart Score for Chest Pain Patients
STEMI patient?: No
History: Moderately Suspicious
ECG: Normal (T wave inversion)
Age: >/= 65 years
Risk Factors: >/= 3 Risk Factors or History of CAD
Troponin: </= Normal Limit
Heart Score for Chest Pain Patients: 5
Heart Score Risk: 20.3% MACE over next 6 weeks
Course
Orders/Labs/Results
Orders:
Orders
08/10/24 01:16
Electrocardiogram (*1) Urgent
Reason for Study: Other
Other Reason for Exam: Respiratory Distress
Cardiac Monitoring- Treatment ONCE
EKG- Treatment ONCE
IV Insert/Care/Rem.- Treatment PRN
CR Chest - 2 Views Urgent
Comment:
Reason For Exam: respiratory distress
O2 Therapy [RESP] Urgent
Titrate/Wean O2 to maintain O2 sat greater than (%): 93
Special Instructions: TO MAINTAIN CONTINUOUS O2 SATS >/= 93%
Pulse Ox/cont/shift [RESP] Urgent
Quantity: 1
Special Instructions: continuous pulse ox
08/10/24 01:31
Aspirin 325 mg PO NOW STA
Nitroglycerin Sublingual [Nitrostat (Sublingual)] 0.4 mg SL [id number] PRN
08/10/24 01:35
Complete Blood Count/With Diff Urgent
Comprehensive Metabolic Panel Urgent
NT-proBNP Urgent
Troponin I Urgent
08/10/24 02:11
EKG- Treatment ONCE
08/10/24 02:15
Morphine Sulfate 2 mg IV NOW STA
08/10/24 02:43
EKG [Electrocardiogram (*1)] Urgent
Reason for Study: Chest Pain
EKG- Treatment ONCE
08/10/24 04:35
Electrocardiogram (*1) Urgent
Reason for Study: Chest Pain
Other Reason for Exam: repeat with Troponin
Troponin I Urgent
Abnormal Lab Results
08/10/24
01:35
RBC 3.63 L 10^6/uL
(4.20-5.40)
Hgb 11.8 L g/dL
(12.0-16.0)
Hct 34.8 L %
(37.0-47.0)
MCH 32.5 H pg
(27.0-31.0)
Abs Immat Gran (auto) 0.1 H 10^3/uL
(0-0.05)
Absolute Neuts (auto) 7.0 H 10^3/uL
(1.4-6.5)
Absolute Monos (auto) 0.8 H 10^3/uL
(0.1-0.6)
Immature Gran % 1.0 H %
(0-0.5)
Lymphocytes % 16.2 L %
(20.5-51.1)
BUN 40 H mg/dl
(7-17)
Creatinine 1.2 H mg/dL
(0.6-1.0)
Glucose 123 H mg/dl
(70-99)
ALT 54 H U/L
(0-35)
08/10/24 01:35
08/10/24 01:35
H/H slightly low. Dehydration. hyperglycemia. ALT elevation. Troponin 0.034, Pro-BNP 841
Vital Signs
Initial and Last Documented VS:
Initial Vital Signs
Temp Pulse Resp BP Pulse Ox
98.8 F 82 20 151/83 98
08/10/24 01:10 08/10/24 01:10 08/10/24 01:10 08/10/24 01:10 08/10/24 01:10
Last Documented Vital Signs
Temp Pulse Resp BP Pulse Ox
98.8 F 75 15 131/59 97
08/10/24 01:10 08/10/24 02:45 08/10/24 02:45 08/10/24 02:30 08/10/24 02:45
MDM/Problems Addressed
Differential Diagnosis Includes:
Coronary syndrome.
MDM/Problems Addressed:
This is a 89 year old female that comes in with c/o chest pain. States that this started at 6pm and she took Three nitro and it would go away. Then at 1am the pain in her chest woke her form sleep.
Will check labs, Chest x-ray and medicate for pain as needed. Will also give Aspirin. Explained to patient that the fact that she took 3 nitro at home is very concerning. There is T wave inversion noted on the ECG. Explained that she will most
likely be admitted. After telling this provider that her pain was 8/10 she told the nurse that her pain was gone. Will hold off on nitro but give the aspirin.
Patient then told the nurse that her chest pain was back. Patient was given Nitro and her pain went down to a 2. BP also dropped considerable. Will give IV Morphine in hopes of getting patient pain free.
Into see patient. Patient refused the Morphine at this time and states that her pain is again now gone. Patient states that she see's Dr. Fraser for Cardiology. Will admit patient. Hospitalist notified.
Patient started with chest pain again. Repeat ECG done Rate 70. AV dual pacer. Norml axis. QrS normal. ST depression. V2. V3, and T wave inversion. I, V3, V4, V5, Checked by Dr. Ceron.
Chronic conditions affecting care: HTN and CAD
Acute Exacerbation and/or Progression of Chronic Illness: CAD
*Radiology
Radiology exam reviewed: preliminary read by ED provider (Chest- NO acute disease of the chest. Unchanged from prior Chest x-ray)
*Pulse Oximetry
Patient hypoxic: no
*EKG
Interpreted by ED Provider?: Yes
Heart Rate: 79
Rate: normal
Rhythm: av sequential
[place]: normal axis
Interval: normal interval
QRS Pattern: normal QRS
Ischemia: T-wave inversion (I, aVL, V2, V3, V6, Checked by Dr. Woods)
*Loan Adviser Interpretation
Rate: normal
Heart Rate: 78
Rhythm: sinus
*Critical Care Note
Total Time (30-74mins, 75-104mins- exclusive of procedures): Not Applicable
ED Attending Note
-
Portions of this chart may have been created with voice recognition software.� Occasional wrong word or��sound alike� substitutions may have occurred due to the inherent limitations of voice recognition software.
Discharge Plan
Departure
Patient Disposition: Admit
Date of Disposition: 08/10/24
Time of Disposition: 02:20
Admit to: Telemetry
Presentation/result/management discussed w/ accepting MD/DO: Hospitalist
Patient with high blood pressure during this ER visit?: Yes
Condition: Good
Covid-19: Not Applicable
Discharge Problem:
Chest pain
Prescriptions:
No Action
oxycodone 10 MG tablet
10 mg PO Q4HPRN PRN (Reason: severe pain)
Patient Comments:
06/27/24: last filled 06/26/24 for 150 tablets over 30 days
cholecalciferol (vitamin D3) 2,000 UNIT tablet
2,000 unit PO DAILY
ondansetron HCl 4 mg Tablet
4 mg PO Q6HPRN PRN (Reason: nausea)
acetaminophen [Tylenol Extra Strength] 500 mg Tablet
1,000 mg PO Q6HPRN PRN (Reason: mild pain)
levothyroxine 88 mcg Tablet
88 mcg PO DAILY
cephalexin 500 mg Capsule
500 mg PO BID
Patient Comments:
06/27/24: filled 06/26/24, to take for 7 days
duloxetine 60 mg Capsule,Delayed Release(Dr/Ec)
60 mg PO HS
pantoprazole [Protonix] 20 MG tablet,delayed release (DR/EC)
40 mg PO DAILYPRN PRN (Reason: gerd)
atorvastatin 40 mg Tablet
40 mg PO QPM Qty: 30 0RF
carvedilol 3.125 mg Tablet
3.125 mg PO BID Qty: 60 0RF
aspirin 81 mg Tablet,Chewable
81 mg PO DAILY Qty: 100 0RF
lisinopril 5 mg Tablet
5 mg PO DAILY Qty: 30 0RF
furosemide 20 mg Tablet
20 mg PO DAILY Qty: 30 0RF
Referrals:
Ivory White PA-C [Family Provider] -
Interventions
Interventions:
*Risk Screen - Suicide Last Done: 08/10/24 01:10
*General Assessment Last Done: 08/10/24 01:10
*Neglect/Abuse Screening Last Done: 08/10/24 01:10
ED- Fall Risk Assessment Last Done: 08/10/24 01:15
*ED COVID-19 Vaccine History Last Done: 08/10/24 01:15
ED- Cardiac Assessment Last Done: 08/10/24 01:57
Discharge Date and Time
Print Language: KHMER
[2024-08-10] MEDS: ASPIRIN 325 MG PO (01:43)
[2024-08-10 01:46] LABS: % Basophils 0.5 % (0-2); % Eosinophils 0.4 % (0-6); % Lymphocytes 16.2 % (20.5-51.1); % Neutrophils 73.9 % (42.2-75.2); Absolute Basophils 0.1 10^3/uL (0-0.2); Absolute Immature Granulocytes 0.1 10^3/uL (0-0.05); Absolute Lymphocytes 1.5 10^3/uL (1.2-3.4); Absolute Monocytes 0.8 10^3/uL (0.1-0.6); Hematocrit 34.8 % (37.0-47.0); Hemoglobin 11.8 g/dL (12.0-16.0); Mean Corp Hgb Conc. 33.9 g/dL (33.0-37.0); Mean Corpuscular Hgb 32.5 pg (27.0-31.0); Mean Corpuscular Volume 95.9 fL (81.0-99.0); Mean Platelet Volume 9.6 fL (7.4-10.4); Nucleated Red Blood Cells % 0 %; Platelet Count 228 10^3/uL (130-400); Red Blood Cell Count 3.63 10^6/uL (4.20-5.40); Red Cell Dist. Width 13.5 % (11.5-14.5); White Blood Cell Count 9.5 10^3/uL (4.8-10.8)
[2024-08-10] MEDS: NITROSTAT (SUBLINGUAL) 0.4 MG SL (01:49)
[2024-08-10 01:58] LABS: ALT (SGPT) 54 U/L (0-35); AST (SGOT) 29 U/L (14-36); Alkaline Phosphatase 103 U/L (38-126); Blood Urea Nitrogen 40 mg/dl (7-17); Calcium 9.4 mg/dl (8.4-10.2); Carbon Dioxide 26 mmol/L (22-30); Chloride 105 mmol/L (98-107); Estimated Creatinine Clearance 26 ml/min; Glucose 123 mg/dl (70-99); Potassium 4.3 mmol/L (3.5-5.1); Sodium 144 mmol/L (135-145); Total Bilirubin 0.3 mg/dl (0.2-1.3); Total Protein 6.3 g/dl (6.3-8.2); eGFR 43.54
[2024-08-10 02:07] LABS: NT-proBNP 841 pg/ml; Troponin I 0.034 ng/ml
[2024-08-10] MEDS: TYLENOL 650 MG PO (03:21)
[2024-08-10 03:53] LABS: Troponin I 0.055 ng/ml
--- NOTE | 2024-08-10 04:11 | HPS.HSE ---
Family Physician
-
Family Physician: Ivory White
Chief Complaint
-
Recurrent chest pain
History of Present Illness
This is an 89-year-old female who has a past medical history significant for a recent diagnosis of multivessel coronary artery disease not amenable to CABG and no suitable target for stenting after coronary angiogram in June 29 now presenting
again with recurrent chest pain that has been going on for several days but was more persistent today.
Patient reported she has had exertional chest pain for several days now for 2 weeks. She reports that with any moderate amount of physical activity or with exposure to cold here she developed substernal chest pain that radiates right across her
chest and occasionally to right shoulder and elbow. It last several minutes and oftentimes she finds that she has to take the nitroglycerin before the pain is relieved. She often waits for about at least 5 to 10 minutes before taking the
nitroglycerin hoping that rest will improve the pain but usually the pain was not improved by rest. Pain is usually resolved with nitroglycerin. She sometimes get the pain at night and wakes up with substernal chest pain requiring nitroglycerin
before she can relax and go back to sleep. Today she reported that she has an exposure to cold air and later on developed substernal chest tightness and pain radiating down to her right shoulder neck and was persistent for almost 1 hour. She took
sublingual nitroglycerin x 3 without any improvement in her pain. She has been on usual medications and has been compliant.
Of note it appears that the patient was medical management for CAD which has been titrated upwards. She is now on Coreg 6.25, aspirin, statin, Imdur and was started on ranolazine just 1 to 2 days ago. Multivessel disease is associated with the
pretty depressed EF of about 30% and global hypokinesis. She denied any orthopnea or PND. She has no lower extremity swelling.
In the emergency department the patient was afebrile blood pressure was 130/60 pulse of 75 family was at 90% on room air. Troponin was 0.034 on first test rising to 0.05. BNP was 841. ECG showed sinus rhythm at a rate of 79 with flattening of the
T waves in V4 through V6 not significantly changed from prior. Chest x-ray shows no acute interstitial infiltrates or pulmonary edema.
Medical History
Past Medical History
Past Medical History: Reports CAD and HTN
Past Surgical History: Reports None
Social History
Tobacco: Non-smoker
Alcohol: None
Drug: None
Personal:
Living: Alone
Employment: Retired
Family History
Family History: Not pertinent
Allergies / Home Medications
Allergies reflects when Allergies were last updated in [facility].
Home Medications with original date entered in [facility]
Allergy/Medication List:
Allergies
Allergy/AdvReac Type Severity Reaction Status Date / Time
Cephalosporins Allergy Unknown Verified 08/10/24 01:10
clindamycin HCl Allergy Hives Verified 08/10/24 01:10
[From Cleocin]
clindamycin palmitate HCl Allergy Hives Verified 08/10/24 01:10
[From Cleocin]
clindamycin phosphate Allergy Hives Verified 08/10/24 01:10
[From Cleocin]
penicillin G Allergy Hives Verified 08/10/24 01:10
Penicillins Allergy Hives Verified 08/10/24 01:10
Sulfa (Sulfonamide Allergy Swelling Verified 08/10/24 01:10
Antibiotics)
sulfasalazine Allergy Unknown Verified 08/10/24 01:10
Home Medications
cholecalciferol (vitamin D3) 50 mcg (2,000 unit) tablet 2,000 unit PO DAILY 01/16/19
oxycodone 10 mg tablet 10 mg PO Q4HPRN PRN severe pain 01/16/19
acetaminophen 500 mg tablet (Tylenol Extra Strength) 1,000 mg PO Q6HPRN PRN mild pain 06/27/24
cephalexin 500 mg capsule 500 mg PO BID 06/27/24
duloxetine 60 mg capsule,delayed release 60 mg PO HS 06/27/24
levothyroxine 88 mcg tablet 88 mcg PO DAILY 06/27/24
ondansetron HCl 4 mg tablet 4 mg PO Q6HPRN PRN nausea 06/27/24
pantoprazole 20 mg tablet,delayed release (Protonix) 40 mg PO DAILYPRN PRN gerd 06/27/24
aspirin 81 mg chewable tablet 81 mg PO DAILY #100 tabs 06/30/24
atorvastatin 40 mg tablet 40 mg PO QPM #30 tabs 06/30/24
carvedilol 3.125 mg tablet 3.125 mg PO BID #60 tabs 06/30/24
furosemide 20 mg tablet 20 mg PO DAILY #30 tabs 06/30/24
lisinopril 5 mg tablet 5 mg PO DAILY #30 tabs 06/30/24
Review of Systems
-
History Source: Patient and Family
Constitutional: Reports No Symptoms
EENT: Reports No Symptoms
Respiratory: Reports No Symptoms
Cardiac: Reports Chest Pain
Abdomen/GI: Reports No Symptoms
: Reports No Symptoms
Musculoskeletal: Reports No Symptoms
Skin: Reports No Symptoms
Neurological: Reports No Symptoms
Endocrine: Reports No Symptoms
Hematologic/Lymphatic: Reports No Symptoms
Psych: Reports No Symptoms
Physical Exam
Vital Signs
Vital Signs
Temp Pulse Resp BP Pulse Ox
98.8 F 75 15 131/59 97
08/10/24 01:10 08/10/24 02:45 08/10/24 02:45 08/10/24 02:30 08/10/24 02:45
Physical Exam
General: Well Developed, Well Nourished, No Apparent Distress and Comfortable
HEENT: NormoCephalic, Anicteric, Moist mucous membranes and Atraumatic
Respiratory: Clear
Cardiac: S1/S2 and Regular Rhythm
Breast: Deferred by me
GI: Soft, Non Tender, Non Distended and Normal Bowel Sounds
Rectal: Deferred by Provider
Genito-urinary: Deferred by me
Musculoskeletal: No Clubbing, No Cyanosis and No Edema
Skin: Warm
Neuro: AO x 3
Hematologic/Lymphatic: No Lymphadenopathy
Psych: Calm
Laboratory Results
-
08/10/24 01:35
08/10/24 01:35
Laboratory Results
Total Bilirubin 0.3 mg/dl (0.2-1.3) 08/10/24 01:35
AST 29 U/L (14-36) 08/10/24 01:35
ALT 54 U/L (0-35) H 08/10/24 01:35
Alkaline Phosphatase 103 U/L (38-126) 08/10/24 01:35
Troponin I 0.055 ng/ml H* D 08/10/24 03:10
Data Reviewed
-
Diagnostic Radiology: Image Personally Visualized and interpreted
Medical Tests (Nuc Med, Echo, EKG etc): Image Personally Visualized and interpreted
Lab Data: Labs Reviewed by me
Impression/Plan
-
IMPRESSION:
89 y.o female with ischemic heart disease s/p coronary angiogram in June showing multivessel disease not amenable to stenting and patient is not a candidate for surgery. She now comes in with more persistent chest pain and elevated troponin to
0.055 despite uptitration of medical management for angina. ECG shows no acute ischemic changes. BNP increased from prior but no signs of volume overload. Pain improved with additional SL NT in ED
PLAN:
1. Acute coronary sydrome/NSTEMI -
- admit to IVU
- NPO for now except meds
- likely remains a poor candidate for cabg so will undergo medical tx for now
- heparin gtt
- will start nitroglycerin gtt if pain recurs on heparin gtt
- continue aspirin/statin
- continue patients coreg 6.25, imdur 30 daily and ranolazine 500 bid
- cardiology consult
2. Renal dysfunction - Mild Tigist, Cr 1.2, BUN 40. Bl cr 0.8. Likely due to lasix and lisinopril
- monitor for now
- avoid nephrotoxins
DVT PPX - on heparin sq
Code Status - DNR
[2024-08-10] MEDS: HEPARIN 25000 UNITS/250 ML IV (04:57)
[2024-08-10] MEDS: HEPARIN 3600 UNITS IV (04:59)
[2024-08-10 05:17] LABS: APTT 28.7 Sec (23.4-35.0)
[2024-08-10] MEDS: ROXICODONE 10 MG PO ×3 (05:38→20:41)
[2024-08-10] MEDS: SYNTHROID 88 MCG PO (06:31)
[2024-08-10 08:30] LABS: Troponin I 0.461 ng/ml
--- NOTE | 2024-08-10 08:52 | CON.CAR ---
Addendum entered and electronically signed by Norm Aguilar MD 08/10/24 11:47:
I saw and examined the patient.
The Senior Power Plant Operator's note was reviewed and I agree with the note.
Comment:
GEN: No distress, awake, Ox3
HEENT: supple, anicteric, mmm
LUNGS: CTA, no wheezes/rales
CV: Reg, S1/S2, 1/6 syst LSB, no gallop
ABD: soft, BS+, NT/ND
EXT: No edema
NEURO: Gross non-focal
SKIN: No rash
Plan:
89-year-old female with past medical history of complex coronary artery disease status post cardiac cath June 2024, hypertension, hyperlipidemia, and diabetes presents to [facility] continued chest pains. Patient had cardiac cath 1
month ago with severe three-vessel disease. She was declined for bypass surgery and the plan was made to treat her medically. Her Coreg was recently increased, Lasix decreased and she was placed on Ranexa several days ago. Unfortunately she
continues to have multiple episodes of chest tightness, worse with exertion. She has been taking 3-5 nitroglycerin on a daily basis. Today the symptoms worsen. EKG reveals sinus rhythm with inferolateral T wave abnormalities. Troponin has
increased to 0.4.
I will review her case with interventional cardiology to see if there is a percutaneous option for her. For now we will continue medical therapy. I will continue IV heparin for 24 hours. Continue aspirin and would add Plavix.
Will start Imdur 30 mg daily. Another option would be to add topical nitroglycerin patch. She will continue the carvedilol 6.25 mg p.o. twice daily and we will also continue Ranexa 500 mg p.o. twice daily. She will continue the lisinopril.
Continue to follow blood pressure.
Hopefully we can treat her medically and improve her symptoms over the next 24 hours. Other option would be to add amlodipine.
Her volume status overall appears stable. Would continue low-dose Lasix for now. proBNP is 800.
Her creatinine is up to 1.2. We will continue to follow.
Original Note:
Consultation
Consultation Request
Date/Time Consultation Requested: 08/10/2024
Date/Time Consultation Performed: 08/10/2024
Requesting Provider: Dr. Rider
Performing Provider: Jailene Hickman PA-C for Dr. Aguilar
Reason for Consultation: Chest pain
Medical History
-
Chief Complaint: CP
History of Present Illness:
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
CP. Patient was recently treated at [facility] in June 2024 for chest discomfort and was found to have newly reduced ejection fraction with EF of 38% which prompted her to undergo cardiac catheterization which demonstrated heavily
calcified multivessel coronary artery disease. Patient was deemed not a candidate for bypass surgery due to poor targets and no clear culprit lesion for PCI. Medical management was recommended. Patient was seen in outpatient cardiology office
07/20/2024 with ongoing anginal symptoms and was placed on isosorbide. Due to ongoing anginal symptoms patient's Coreg was doubled to 6.25 mg twice a day on 07/22/2024. She was also noted to have ASTER on outpatient laboratory studies and Lasix was
reduced to 20 mg Tuesday, Tuesday, Tuesday. Despite changes patient continued to have ongoing anginal symptoms and plan was to start Ranexa 500 mg twice a day (first dose 08/08). Patient reports she continues to have chest discomfort which
generally is relieved with 1 sublingual nitroglycerin for which she has been taking on a daily basis. She had 2-3 episodes of chest pain yesterday relieved with nitroglycerin. However in early hours of this morning she was awoken with chest
discomfort and took 3 nitroglycerin without significant improvement prompting her to come to emergency department. EKG in emergency department showed sinus rhythm with ST-T wave abnormality in inferior and anterior lateral segments. Initial
troponin noted to be elevated at 0.055 with 2nd trop 0.461. Chest x-ray showed no active disease. proBNP 841. Patient was given additional nitroglycerin as well as morphine and oxycodone and placed on heparin drip with improvement of chest
discomfort. Patient on heparin drip and is currently chest pain-free.
PMH:
Multivessel heavily calcified coronary artery disease on cath 06/22/2024; deemed poor candidate for CABG and no clear culprit lesion for PCI
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
HTN
HLD
DM2
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
Hypothyroidism
History of multiple back surgeries with spinal stimulator in place
History of UTI
Past Medical History
Past Medical History: Other (in HPI)
Social History
Tobacco: Non-Smoker
Alcohol: None
Drug: None
Personal:
Living: Alone
Family History
Family History: CAD, Cancer and Other (CHF)
Allergies / Home Medications
Allergy/AdvReac Type Severity Reaction Status Date / Time
Cephalosporins Allergy Unknown Verified 08/10/24 01:10
clindamycin HCl Allergy Hives Verified 08/10/24 01:10
[From Cleocin]
clindamycin palmitate HCl Allergy Hives Verified 08/10/24 01:10
[From Cleocin]
clindamycin phosphate Allergy Hives Verified 08/10/24 01:10
[From Cleocin]
penicillin G Allergy Hives Verified 08/10/24 01:10
Penicillins Allergy Hives Verified 08/10/24 01:10
Sulfa (Sulfonamide Allergy Swelling Verified 08/10/24 01:10
Antibiotics)
sulfasalazine Allergy Unknown Verified 08/10/24 01:10
�Medication �Instructions �Recorded �Confirmed �Type
cholecalciferol (vitamin D3) 50 2,000 unit PO DAILY 01/16/19 06/27/24 History
mcg (2,000 unit) tablet
oxycodone 10 mg tablet 10 mg PO Q4HPRN PRN severe pain 01/16/19 06/27/24 History
acetaminophen 500 mg tablet 1,000 mg PO Q6HPRN PRN mild pain 06/27/24 06/27/24 History
(Tylenol Extra Strength)
cephalexin 500 mg capsule 500 mg PO BID 06/27/24 06/27/24 History
duloxetine 60 mg capsule,delayed 60 mg PO HS 06/27/24 06/27/24 History
release
levothyroxine 88 mcg tablet 88 mcg PO DAILY 06/27/24 06/27/24 History
ondansetron HCl 4 mg tablet 4 mg PO Q6HPRN PRN nausea 06/27/24 06/27/24 History
pantoprazole 20 mg tablet,delayed 40 mg PO DAILYPRN PRN gerd 06/27/24 06/27/24 History
release (Protonix)
aspirin 81 mg chewable tablet 81 mg PO DAILY #100 tabs 06/30/24 Rx
atorvastatin 40 mg tablet 40 mg PO QPM #30 tabs 06/30/24 Rx
carvedilol 3.125 mg tablet 3.125 mg PO BID #60 tabs 06/30/24 Rx
furosemide 20 mg tablet 20 mg PO DAILY #30 tabs 06/30/24 Rx
lisinopril 5 mg tablet 5 mg PO DAILY #30 tabs 06/30/24 Rx
Review of Systems
-
History Source: Patient
All other systems: Negative unless noted
Physical Exam
Vital Signs
Temp Pulse Resp BP Pulse Ox
98.2 F 71 16 131/59 96
08/10/24 06:49 08/10/24 06:00 08/10/24 06:49 08/10/24 06:00 08/10/24 06:49
GEN: No distress, awake, Ox3, lying in bed
HEENT: supple, anicteric, mmm
LUNGS: CTA, no wheezes/rales
CV: Reg, S1/S2, 1/6 syst LSB murmur, no rub or gallop
ABD: soft, BS+, NT/ND
EXT: No edema, clubbing or cyanosis
NEURO: Gross non-focal
SKIN: No rash, warm, dry, pink
Lab Results
08/10/24 01:35
08/10/24 01:35
Troponin I 0.461 ng/ml H* D 08/10/24 07:35
Pyw-U-Exkbryvbvxp Pept 841 pg/ml 08/10/24 01:35
Impression / Plan
-
Primary Solar Project Manager: Dr. Fraser
Impression:
Presents 08/10/2024 with ongoing angina/chest pain
Abnormal troponin
ASTER
Multivessel heavily calcified coronary artery disease on cath 06/22/2024; deemed poor candidate for CABG and no clear culprit lesion for PCI
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
HTN
HLD
DM2
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
Hypothyroidism
History of multiple back surgeries with spinal stimulator in place
History of UTI
ECHO 09/22/2022: EF 57%, mild concentric LVH, trace MR, mild AR, mild TR, PAP 21 mmHg
ECHO 06/28/24: Global hypokinesis, EF 38%, mild concentric LVH, stage I diastolic dysfunction, mild MR, aortic sclerosis, mild to moderate AR
cath 06/29/24: Heavily calcified coronary arteries with significant multivessel disease. 40% left main, 70% proximal LAD, 85% left circumflex, 85% mid RCA with 100% occluded RPDA
Plan:
-Presents 08/10/2024 with ongoing angina/chest pain and concern for acute coronary syndrome
-Initial troponin found to be 0.055 with second troponin of 0.461. Repeat pending, trend to peak. Continue heparin drip
-Patient had cardiac catheterization in June 2024 and was felt to be a poor surgical candidate by CT surgery. There was no clear culprit lesion for PCI at that time with recommendation of advancing medical management/antianginals.
-Would continue Coreg, Imdur and recently added Ranexa, aspirin, statin (started 08/08/2024). Could consider nitroglycerin patch/paste instead of Imdur. Patient has been intolerant to amlodipine in past.
-Will have interventional cardiology review catheterization films.
-Ischemic cardiomyopathy with most recent EF 38% on echo June 2024. Continue GDMT with Coreg, lisinopril and Lasix. ASTER prevents initiation of Aldactone. Patient has history of UTI would avoid SGLT 2 inhibitor at this time.
-No evidence of volume overload or heart failure on examination. proBNP 841. Lasix had been reduced as outpatient to Tuesday, Tuesday, Tuesday for creatinine of 1.2 on 07/23/24.
-Mild ASTER with creatinine 1.2. Continue to monitor. Would reduce Lasix to Tuesday, Tuesday, Tuesday
-Blood pressure stable on current regimen.
-Continue aspirin and atorvastatin.
Plan communicated with nursing, patient's daughter Milena over the phone.
HPI 08/10/2024:
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
CP. Patient was recently treated at [facility] in June 2024 for chest discomfort and was found to have newly reduced ejection fraction with EF of 38% which prompted her to undergo cardiac catheterization which demonstrated heavily
calcified multivessel coronary artery disease. Patient was deemed not a candidate for bypass surgery due to poor targets and no clear culprit lesion for PCI. Medical management was recommended. Patient was seen in outpatient cardiology office
07/20/2024 with ongoing anginal symptoms and was placed on isosorbide. Due to ongoing anginal symptoms patient's Coreg was doubled to 6.25 mg twice a day on 07/22/2024. She was also noted to have ASTER on outpatient laboratory studies and Lasix was
reduced to 20 mg Tuesday, Tuesday, Tuesday. Despite changes patient continued to have ongoing anginal symptoms and plan was to start Ranexa 500 mg twice a day (first dose 08/08). Patient reports she continues to have chest discomfort which
generally is relieved with 1 sublingual nitroglycerin for which she has been taking on a daily basis. She had 2-3 episodes of chest pain yesterday relieved with nitroglycerin. However in early hours of this morning she was awoken with chest
discomfort and took 3 nitroglycerin without significant improvement prompting her to come to emergency department. EKG in emergency department showed sinus rhythm with ST-T wave abnormality in inferior and anterior lateral segments. Initial
troponin noted to be elevated at 0.055 with 2nd trop 0.461. Chest x-ray showed no active disease. proBNP 841. Patient was given additional nitroglycerin as well as morphine and oxycodone and placed on heparin drip with improvement of chest
discomfort. Patient on heparin drip and is currently chest pain-free.
Data Reviewed
-
EKG: Report Reviewed by me, Discussed with Physician, Discussed with Nurse, Discussed with Patient and Discussed with Family
Radiology: Report Reviewed by me, Discussed with Physician, Discussed with Nurse, Discussed with Patient and Discussed with Family
Labs: Labs Reviewed by me, Discussed with Physician, Discussed with Nurse, Discussed with Patient and Discussed with Family
Old Records: Reviewed
[2024-08-10] MEDS: RANEXA EXTENDED RELEASE 500 MG PO ×2 (09:04→20:42)
[2024-08-10] MEDS: IMDUR (EXTENDED RELEASE) 30 MG PO (09:04)
[2024-08-10] MEDS: LOW STRENGTH ASPIRIN 81 MG PO (09:04)
[2024-08-10] MEDS: ZESTRIL 5 MG PO (09:05)
[2024-08-10] MEDS: LASIX 20 MG PO (09:05)
[2024-08-10] MEDS: COREG 6.25 MG PO ×2 (09:06→20:41)
--- NOTE | 2024-08-10 10:59 | W.PN.HOSP.TC ---
Today's Communication/Plan
-
ACS protocol
Assessment / Plan
Assessment / Plan
Physical exam:
General: Well Developed, Well Nourished and No Apparent Distress
HEENT: Normocephalic, Atraumatic and Moist Mucous Membranes
Respiratory: Clear to Auscultation; Negative Wheezes, Rales or Rhonchi
Cardiac: Regular Rhythm and S1/S2
GI: Soft, Nontender and Nondistended
Musculoskeletal: No Clubbing, No Cyanosis and No Edema
Neuro: Awake, Alert and Oriented
Psych: Calm
A/P:
Acute non-STEMI:
Continue heparin drip
Continue aspirin
Continue statins
Continue beta-blockers
Continue nitrates
Continue TRISH inhibitor
Continue Ranexa
Appreciated cardiology consult
[place] to be poor candidate for surgical revascularization
Cardiology to reevaluate if amenable to repeat PCI
ASTER:
Monitor renal function
Avoid nephrotoxic
HFrEF:
Resume diuretics but reduce frequency per cardiology
Continue beta-blockers and TRISH inhibitor
Hypertension:
Continue home antihypertensives.
Monitor blood pressure and adjust medications accordingly.
Hyperlipidemia:
Continue home statins
Diabetes mellitus type 2:
Continue insulin sliding scale
DVT prophylaxis:
Heparin drip
CODE STATUS:
DNR
Anticipated Discharge: > 48 hours
Subjective/Interval History
-
Date of Service: August 10, 2024
Patient denies chest pain today. No shortness of breath.
Objective Data
-
Labs:
Laboratory Results
08/10/24 08/10/24 08/10/24
01:35 04:49 10:42
WBC 9.5
Hgb 11.8 L
Hct 34.8 L
Plt Count 228
APTT 28.7 Pending
Sodium 144
Potassium 4.3
Chloride 105
Carbon Dioxide 26
BUN 40 H
Creatinine 1.2 H
Glucose 123 H
Calcium 9.4
Total Bilirubin 0.3
AST 29
ALT 54 H
Alkaline Phosphatase 103
Vital Signs:
Vital Signs
Temp Pulse Resp BP Pulse Ox
98.2 F 57 16 145/66 94
08/10/24 06:49 08/10/24 10:00 08/10/24 06:49 08/10/24 06:48 08/10/24 08:06
[2024-08-10 11:02] LABS: APTT 75.3 Sec (23.4-35.0)
--- NOTE | 2024-08-10 13:09 | PTCARENOTE ---
Rec'd Pt A,A+Ox3 from orthodontic lab technician, no c/o pain. R femoral dsg D+I, good, palpable DP pulse.
--- NOTE | 2024-08-10 13:48 | CM ---
CM following for DC planning needs.
Met w/ patient at bedside to complete initial assessment. Pt. known to me from prior admission, 06/2024.
Pt. resides in a private, 1 story home w/ 3 SWAPNIL alone. She is functionally indep. w/ ADLs, mobility with use of a SPC.
She still drives.
She resides within close proximity to her son and his family.
Plan is for home once medically stable without needs.
CM to follow for any needs that may arise.
[2024-08-10] MEDS: LIPITOR 40 MG PO (17:36)
[2024-08-10 17:38] LABS: APTT 51.3 Sec (23.4-35.0)
[2024-08-10] MEDS: CYMBALTA DELAYED RELEASE 60 MG PO (22:17)
[2024-08-11 01:09] LABS: APTT 88.3 Sec (23.4-35.0)
[2024-08-11 03:30] VITALS: BP 98/55
--- NOTE | 2024-08-11 04:44 | PTCARENOTE ---
Pt NSR on monitor. VSS. Denies chest pain or SOB. Cont on Heparin gtt.
[2024-08-11] MEDS: SYNTHROID 88 MCG PO (05:57)
[2024-08-11 06:00] VITALS: BMI 25.6
[2024-08-11 06:33] LABS: APTT 88.8 Sec (23.4-35.0)
[2024-08-11 06:34] LABS: Hemoglobin 12.1 g/dL (12.0-16.0); Mean Corp Hgb Conc. 33.6 g/dL (33.0-37.0); Mean Corpuscular Hgb 32.6 pg (27.0-31.0); Mean Platelet Volume 9.6 fL (7.4-10.4); Platelet Count 235 10^3/uL (130-400); Red Blood Cell Count 3.71 10^6/uL (4.20-5.40); Red Cell Dist. Width 13.5 % (11.5-14.5); White Blood Cell Count 7.1 10^3/uL (4.8-10.8)
[2024-08-11 07:24] LABS: Blood Urea Nitrogen 36 mg/dl (7-17); Calcium 9.2 mg/dl (8.4-10.2); Carbon Dioxide 27 mmol/L (22-30); Chloride 103 mmol/L (98-107); Estimated Creatinine Clearance 27 ml/min; Glucose 93 mg/dl (70-99); Potassium 4.6 mmol/L (3.5-5.1); Sodium 140 mmol/L (135-145); eGFR 48.33
[2024-08-11 08:00] VITALS: BP 118/64
[2024-08-11] MEDS: RANEXA EXTENDED RELEASE 500 MG PO ×2 (08:40→11:26)
[2024-08-11] MEDS: IMDUR (EXTENDED RELEASE) 30 MG PO (08:40)
[2024-08-11] MEDS: ZESTRIL 5 MG PO (08:40)
[2024-08-11] MEDS: COREG 6.25 MG PO ×2 (08:40→19:21)
[2024-08-11] MEDS: LOW STRENGTH ASPIRIN 81 MG PO (08:40)
--- NOTE | 2024-08-11 09:47 | W.PN.CARDCBS ---
Today's Communication / Plan
-
Patient with multivessel disease, non-Q wave NE and angina triggered by activities in the colder weather as opposed to doing the similar activities in the warmer weather. Possibly coronary spasm on top of known multivessel disease.
Increase Ranexa to 1000 mg twice daily
Isosorbide was added this admission
Coreg was increased this admission
Given advanced age and lower blood pressure reduce lisinopril to 2.5 mg daily
Given non-Q wave NE add Plavix to aspirin watch for bleeding.
Continue heparin for now.
Continue statin
Ambulate patient
No true targets however if fails aggressive medical treatment could consider complex PCI of left circumflex
Impression / Plan
-
Primary Coil Machine Supervisor: Dr. Fraser
Impression:
Presents 08/10/2024 with ongoing angina/chest pain
Abnormal troponin
ASTER
Multivessel heavily calcified coronary artery disease on cath 06/22/2024; deemed poor candidate for CABG and no clear culprit lesion for PCI
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
HTN
HLD
DM2
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
Hypothyroidism
History of multiple back surgeries with spinal stimulator in place
History of UTI
ECHO 09/22/2022: EF 57%, mild concentric LVH, trace MR, mild AR, mild TR, PAP 21 mmHg
ECHO 06/28/24: Global hypokinesis, EF 38%, mild concentric LVH, stage I diastolic dysfunction, mild MR, aortic sclerosis, mild to moderate AR
cath 06/29/24: Heavily calcified coronary arteries with significant multivessel disease. 40% left main, 70% proximal LAD, 85% left circumflex, 85% mid RCA with 100% occluded RPDA
Plan:
-Presents 08/10/2024 with ongoing angina/chest pain and concern for acute coronary syndrome/non-Q wave myocardial infarction with peak troponin 1.57. There is seems to be an atypical component of her angina only triggered in the cold weather by
report.
She tells me she only has angina when she does her activity in the cold. The same activity in the afternoon does not bring on angina. Continue aggressive management of angina
-Continue heparin drip consider discontinuation tomorrow if stable.
-If stable we will have her walk the hallway.
-Given tendency to low blood pressure reduce lisinopril to 2.5 mg daily. I will increase Ranexa to 1000 mg daily. Reassess labs tomorrow. Isosorbide 30 mg daily is new. Other antianginals/statin started 08/08/2024. Patient has been intolerant to
amlodipine in past.
-Patient had cardiac catheterization in June 2024 and was felt to be a poor surgical candidate by CT surgery. There was no clear culprit lesion for PCI at that time with recommendation of advancing medical management/antianginals.
-Possible to intervene on left circumflex but unclear if it will change angina given multivessel disease. Continue medical management for now but if any recurrence would target left circumflex.
-Ischemic cardiomyopathy with most recent EF 38% on echo June 2024. Continue GDMT with Coreg, lisinopril and Lasix. Previously it was thought that ASTER prevents initiation of Aldactone, reconsider. Patient has history of UTI and plan was to
avoid SGLT 2 inhibitor at this time, continue to reconsider.
-No evidence of volume overload or heart failure on examination. proBNP 841. Lasix had been reduced as outpatient to Tuesday, Tuesday, Tuesday for creatinine of 1.2 on 07/23/24.
-Mild ASTER with creatinine 1.2 now creatinine 1.1. Continue to monitor.
-Continue aspirin and atorvastatin. Will add Plavix given non-Q wave NE.
Plan communicated with nursing. Previously discussed with patient's daughter Milena over the phone.
HPI 08/10/2024:
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
CP. Patient was recently treated at [facility] in June 2024 for chest discomfort and was found to have newly reduced ejection fraction with EF of 38% which prompted her to undergo cardiac catheterization which demonstrated heavily
calcified multivessel coronary artery disease. Patient was deemed not a candidate for bypass surgery due to poor targets and no clear culprit lesion for PCI. Medical management was recommended. Patient was seen in outpatient cardiology office
07/20/2024 with ongoing anginal symptoms and was placed on isosorbide. Due to ongoing anginal symptoms patient's Coreg was doubled to 6.25 mg twice a day on 07/22/2024. She was also noted to have ASTER on outpatient laboratory studies and Lasix was
reduced to 20 mg Tuesday, Tuesday, Tuesday. Despite changes patient continued to have ongoing anginal symptoms and plan was to start Ranexa 500 mg twice a day (first dose 08/08). Patient reports she continues to have chest discomfort which
generally is relieved with 1 sublingual nitroglycerin for which she has been taking on a daily basis. She had 2-3 episodes of chest pain yesterday relieved with nitroglycerin. However in early hours of this morning she was awoken with chest
discomfort and took 3 nitroglycerin without significant improvement prompting her to come to emergency department. EKG in emergency department showed sinus rhythm with ST-T wave abnormality in inferior and anterior lateral segments. Initial
troponin noted to be elevated at 0.055 with 2nd trop 0.461. Chest x-ray showed no active disease. proBNP 841. Patient was given additional nitroglycerin as well as morphine and oxycodone and placed on heparin drip with improvement of chest
discomfort. Patient on heparin drip and is currently chest pain-free.
Progress Note - Coil Machine Supervisor
Subjective
Date of Service: August 11, 2024
She denies chest pain but has not ambulated since being in the hospital. Tells me her chest pain occurs only in the cold and similar activities when the weather is warmer in the afternoon do not cause angina.
Objective
Labs:
08/11/24 06:09
08/11/24 06:09
Labs
Hgb 12.1 g/dL (12.0-16.0) 08/11/24 06:09
Hct 36.0 % (37.0-47.0) L 08/11/24 06:09
Plt Count 235 10^3/uL (130-400) 08/11/24 06:09
APTT 88.8 Sec (23.4-35.0) H 08/11/24 06:09
Sodium 140 mmol/L (135-145) 08/11/24 06:09
Potassium 4.6 mmol/L (3.5-5.1) 08/11/24 06:09
BUN 36 mg/dl (7-17) H 08/11/24 06:09
Creatinine 1.1 mg/dL (0.6-1.0) H 08/11/24 06:09
Glucose 93 mg/dl (70-99) 08/11/24 06:09
Troponins
08/10/24 08/10/24 08/10/24
01:35 03:10 07:35
Troponin I 0.034 0.055 H* D 0.461 H* D
08/10/24 08/10/24 08/11/24
10:42 17:21 06:09
Troponin I 1.010 H* D 1.570 H* D 0.810 H*
Vital Signs and I&O:
Vital Signs
Temp Pulse Resp BP Pulse Ox
98.3 F 73 16 118/64 95
08/11/24 07:59 08/11/24 08:40 08/11/24 07:59 08/11/24 08:40 08/11/24 07:59
Vital Signs
Temp Pulse Resp BP Pulse Ox
98.3 F 73 16 118/64 95
08/11/24 07:59 08/11/24 08:40 08/11/24 07:59 08/11/24 08:40 08/11/24 07:59
Intake & Output
08/09/24 08/10/24 08/11/24 08/12/24
06:59 06:59 06:59 06:59
Intake Total 150 / 150
Output Total 375 / 375
Balance -225 / -225
Physical Exam
Physical Exam
General: Well developed, well nourished in NAD.
Heart: Non displaced PMI, RRR, no murmurs, No S3, S4, no rubs.
Lungs: Clear to auscultation bilaterally, no wheeze, rhonchi, rubs bilaterally,
normal expiratory phase.
Extremities: No clubbing, cyanosis or edema bilaterally.
Neuro: Grossly nonfocal, awake, alert and oriented x3.
--- NOTE | 2024-08-11 10:32 | W.PN.HOSP.TC ---
Today's Communication/Plan
-
Continue heparin drip and ACS protocol
Assessment / Plan
Assessment / Plan
Physical exam:
General: Well Developed, Well Nourished and No Apparent Distress
HEENT: Normocephalic, Atraumatic and Moist Mucous Membranes
Respiratory: Clear to Auscultation; Negative Wheezes, Rales or Rhonchi
Cardiac: Regular Rhythm and S1/S2
GI: Soft, Nontender and Nondistended
Musculoskeletal: No Clubbing, No Cyanosis and No Edema
Neuro: Awake, Alert and Oriented
Psych: Calm
A/P:
Acute non-STEMI:
Continue heparin drip
Continue aspirin
Continue statins
Continue beta-blockers--> increased on this admission
Continue nitrates--> initiated on this admission
Continue TRISH inhibitor--> reduced on this admission
Continue Ranexa--> increased doses
Appreciated cardiology consult
[place] to be poor candidate for surgical revascularization
Cardiology to reevaluate if amenable to repeat PCI--> Per cardiology today on 08/11 no true target that if fails aggressive treatment could consider complex PCI of left circumflex.
ASTER:
Monitor renal function
Avoid nephrotoxic
HFrEF:
Resume diuretics but reduce frequency per cardiology
Continue beta-blockers and TRISH inhibitor
Hypertension:
Continue home antihypertensives.
Monitor blood pressure and adjust medications accordingly.
Hyperlipidemia:
Continue home statins
Diabetes mellitus type 2:
Continue insulin sliding scale
DVT prophylaxis:
Heparin drip
CODE STATUS:
DNR
Total time spent on today's encounter was 52 minutes which included time spent in counseling the patient/family regarding diagnosis and treatment plan as listed above, goals of care, and symptom management. Case was discussed with nursing staff,
specialists, and care coordinators/case management. All labs and imaging personally reviewed by me. Remainder the time spent in detailed review of previous records, lab data, imaging, and other medical provider documentation.
Anticipated Discharge: > 48 hours
Subjective/Interval History
-
Date of Service: August 11, 2024
Patient denies any chest pain or shortness of breath.
Objective Data
-
Labs:
Laboratory Results
08/11/24 08/11/24
00:33 06:09
WBC 7.1
Hgb 12.1
Hct 36.0 L
Plt Count 235
APTT 88.3 H 88.8 H
Sodium 140
Potassium 4.6
Chloride 103
Carbon Dioxide 27
BUN 36 H
Creatinine 1.1 H
Glucose 93
Calcium 9.2
Vital Signs:
Vital Signs
Temp Pulse Resp BP Pulse Ox
98.3 F 73 16 118/64 95
08/11/24 07:59 08/11/24 08:40 08/11/24 07:59 08/11/24 08:40 08/11/24 07:59
I&O
08/10/24 08/11/24 08/12/24
06:59 06:59 06:59
Intake Total 150 / 150
Output Total 375 / 375
Balance -225 / -225
[2024-08-11] MEDS: HEPARIN 25000 UNITS/250 ML IV (12:30)
[2024-08-11 12:51] VITALS: BP 113/52
[2024-08-11 15:31] VITALS: BP 118/56
[2024-08-11] MEDS: LIPITOR 40 MG PO (18:18)
[2024-08-11 19:00] VITALS: BP 111/62
[2024-08-11] MEDS: ROXICODONE 10 MG PO (19:22)
[2024-08-11] MEDS: RANEXA EXTENDED RELEASE 1000 MG PO (19:22)
[2024-08-11 22:32] VITALS: BP 112/58
[2024-08-11] MEDS: CYMBALTA DELAYED RELEASE 60 MG PO (22:33)
--- NOTE | 2024-08-11 22:49 | PTCARENOTE ---
Pt received start of shift, HR SR. Heparin infusing at 900u/hr. Pt c/o 04/11 pain in back, PRN oxycodone administered - see DEC. Updated pt on plan of care, pt states understanding. Pt denying any CP, SOB, or lightheadedness/dizziness. Informed to
notify RN if any changes, call osorio within reach.
[2024-08-12] VITALS (7 sets, daily range): BP systolic 92–120; BP diastolic 54–63; BMI 25.5
[2024-08-12] MEDS: ROXICODONE 10 MG PO (01:42)
[2024-08-12 04:22] LABS: Hematocrit 34.4 % (37.0-47.0); Hemoglobin 11.7 g/dL (12.0-16.0); Mean Corpuscular Hgb 32.6 pg (27.0-31.0); Mean Corpuscular Volume 95.8 fL (81.0-99.0); Mean Platelet Volume 9.7 fL (7.4-10.4); Platelet Count 233 10^3/uL (130-400); Red Blood Cell Count 3.59 10^6/uL (4.20-5.40); Red Cell Dist. Width 13.7 % (11.5-14.5); White Blood Cell Count 7.5 10^3/uL (4.8-10.8)
[2024-08-12 04:39] LABS: APTT 80.6 Sec (23.4-35.0)
[2024-08-12 04:48] LABS: Blood Urea Nitrogen 40 mg/dl (7-17); Carbon Dioxide 29 mmol/L (22-30); Chloride 102 mmol/L (98-107); Estimated Creatinine Clearance 25 ml/min; Glucose 103 mg/dl (70-99); Potassium 4.6 mmol/L (3.5-5.1); Sodium 138 mmol/L (135-145); eGFR 43.54
[2024-08-12] MEDS: SYNTHROID 88 MCG PO (05:56)
[2024-08-12] MEDS: LOW STRENGTH ASPIRIN 81 MG PO (07:54)
[2024-08-12] MEDS: RANEXA EXTENDED RELEASE 1000 MG PO (07:54)
--- NOTE | 2024-08-12 08:06 | W.PN.HOSP.TC ---
Today's Communication/Plan
-
IV heparin drip. Discontinue Ranexa oxycodone Lasix and TRISH inhibitor. IVF.
Assessment / Plan
Assessment / Plan
Physical exam:
General: Well Developed, Well Nourished and No Apparent Distress
HEENT: Normocephalic, Atraumatic and Moist Mucous Membranes
Respiratory: Clear to Auscultation; Negative Wheezes, Rales or Rhonchi
Cardiac: Regular Rhythm and S1/S2
GI: Soft, Nontender and Nondistended
Musculoskeletal: No Clubbing, No Cyanosis and No Edema
Neuro: Awake, Alert and Oriented
Psych: Calm
A/P:
Acute Non-STEMI:
Continue heparin drip for ACS protocol
Continue aspirin
Continue statins
Continue beta-blockers--> increased on this admission
Continue nitrates--> initiated on this admission
Continue TRISH inhibitor--> reduced initially on this admission but now discontinued due to worsening renal function
Continue Ranexa--> increased doses but now discontinue due to myoclonic jerk
Appreciated cardiology consult
[place] to be poor candidate for surgical revascularization
Cardiology to reevaluate if amenable to repeat PCI--> Per cardiology today on 08/11 no true target that if fails aggressive treatment could consider complex PCI of left circumflex.
Discussed with cardiology today on 08/12
Myoclonic jerks:
Likely metabolic in nature and medications related
Discontinue Ranexa and holding oxycodone
Will also check TSH, B12, and sed rate
Continue to monitor closely
ASTER:
Given some gentle intravenous hydration today
Discontinue TRISH inhibitor and furosemide
Avoid nephrotoxic
Monitor renal function
HFrEF/chronic systolic CHF:
Initially resumed diuretics but reduce frequency per cardiology and now discontinued.
Continue beta-blockers
Discontinue TRISH inhibitor
Hypothyroidism:
Continue levothyroxine 88 mcg p.o. daily
Update TSH in a.m.
Chronic pain with opiate dependence:
Holding narcotics for now until myoclonus improves
Hypertension:
Continue home antihypertensives except for adjustment as above.
Monitor blood pressure and adjust medications accordingly.
Hyperlipidemia:
Continue home statins
Diabetes mellitus type 2:
Continue insulin sliding scale
DVT prophylaxis:
Heparin drip
CODE STATUS:
DNR
Total time spent on today's encounter was 52 minutes which included time spent in counseling the patient/family regarding diagnosis and treatment plan as listed above, goals of care, and symptom management. Case was discussed with nursing staff,
specialists, and care coordinators/case management. All labs and imaging personally reviewed by me. Remainder the time spent in detailed review of previous records, lab data, imaging, and other medical provider documentation.
Anticipated Discharge: > 48 hours
Subjective/Interval History
-
Date of Service: August 12, 2024
Patient denies chest pain or shortness of breath today. She does have some myoclonic jerks since yesterday and worsening today. Afebrile
Objective Data
-
Labs:
Laboratory Results
08/12/24
03:54
WBC 7.5
Hgb 11.7 L
Hct 34.4 L
Plt Count 233
APTT 80.6 H
Sodium 138
Potassium 4.6
Chloride 102
Carbon Dioxide 29
BUN 40 H
Creatinine 1.2 H
Glucose 103 H
Calcium 9.0
Vital Signs:
Vital Signs
Temp Pulse Resp BP Pulse Ox
98 F 68 20 92/56 95
08/12/24 07:20 08/12/24 04:00 08/12/24 07:20 08/12/24 03:41 08/12/24 07:20
I&O
08/11/24 08/12/24 08/13/24
06:59 06:59 06:59
Intake Total 150 / 150
Output Total 375 / 375
Balance -225 / -225
[2024-08-12] MEDS: COREG PO (08:18)
--- NOTE | 2024-08-12 08:54 | PTCARENOTE ---
Addendum entered by Jing Linton RN 08/12/24 08:57:
mild muscle jerking motion is intermittent.
Original Note:
Pt having some muscle jerking motion of her arms and legs upon standing this morning. When she is lying still in bed no jerking or tremors noted. It is just upon movement. Dr Russo aware and came to see Pt. Neuro check is otherwise WNL.
--- NOTE | 2024-08-12 09:37 | W.PN.CARDCBS ---
Today's Communication / Plan
-
Development of myoclonic jerks likely related to Ranexa.
Would not rechallenge with Ranexa. I have discontinued.
I have held oxycodone for now. Would be able to resume once myoclonic jerks resolved.
I have held lisinopril. BUN/creatinine 40/1.2.
I have stopped Lasix for now.
I will also give 500 mL of normal saline.
Discussed at length with patient and her daughter.
Likely eventual cardiac catheterization to target left circumflex artery. Currently without angina. Continue heparin.
Impression / Plan
-
Primary Manufacturing Industrial Engineer: Dr. Fraser
Impression:
Presents 08/10/2024 with ongoing angina/chest pain
Abnormal troponin
ASTER
Myoclonic jerks secondary to Ranexa.
Multivessel heavily calcified coronary artery disease on cath 06/22/2024; deemed poor candidate for CABG and no clear culprit lesion for PCI
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
HTN
HLD
DM2
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
Hypothyroidism
History of multiple back surgeries with spinal stimulator in place
History of UTI
ECHO 09/22/2022: EF 57%, mild concentric LVH, trace MR, mild AR, mild TR, PAP 21 mmHg
ECHO 06/28/24: Global hypokinesis, EF 38%, mild concentric LVH, stage I diastolic dysfunction, mild MR, aortic sclerosis, mild to moderate AR
cath 06/29/24: Heavily calcified coronary arteries with significant multivessel disease. 40% left main, 70% proximal LAD, 85% left circumflex, 85% mid RCA with 100% occluded RPDA
Plan:
-Presents 08/10/2024 with ongoing angina/chest pain and acute coronary syndrome/non-Q wave myocardial infarction with peak troponin 1.57. There is seems to be an component of her angina only triggered in the cold weather and activity by report
which may indicate some degree of spasm. She was having increased nitroglycerin use and after 3 nitroglycerin prior to admission symptoms are not resolving.
-She was tolerating increases of antianginal medication with increase carvedilol, the addition of isosorbide and on heparin drip. She has been on Ranexa 500 mg twice daily. And I increased her Ranexa on 08/11 to 1000 mg twice daily. I had
decreased her lisinopril to 2.5 mg daily given renal insufficiency and low blood pressure.
-Unfortunately today she began having some myoclonic jerks. EKG is stable. She did receive oxycodone last night. This is likely from Ranexa which I discussed with the patient and her daughter Milena over the phone today.
Would not rechallenge with Ranexa. I have discontinued.
I have held oxycodone for now. Would be able to resume once myoclonic jerks resolved.
I have held lisinopril. BUN/creatinine 40/1.2.
I have stopped Lasix for now.
I will also give 500 mL of normal saline.
I did discuss with primary service. I have given a one-time dose of Klonopin for comfort. Will reassess later.
I did discuss with the patient and her daughter that she did rule in for RI. Antianginal treatment is going to be limited given low blood pressure, intolerance now to Ranexa and prior intolerance to amlodipine. If agreeable there has been
discussion about intervening on left circumflex artery. Would recommend proceeding once clinically stable. Perhaps Tuesday. Continue to reassess.
-Continue heparin drip consider discontinuation tomorrow if stable.
-As noted patient had cardiac catheterization in June 2024 and was felt to be a poor surgical candidate by CT surgery. There was no clear culprit lesion for PCI at that time with recommendation of advancing medical management/antianginals.
-Possible to intervene on left circumflex and hopefully this will help angina although complicated procedure. Continue medical management in the interim.
-Ischemic cardiomyopathy with most recent EF 38% on echo June 2024. Continue GDMT with Coreg. Lisinopril and Lasix now on hold. With renal insufficiency at this time would not add Aldactone or SGLT2 inhibitors (history of frequent UTIs).
-No evidence of volume overload or heart failure on examination. proBNP 841. Lasix had been reduced as outpatient to Tuesday, Tuesday, Tuesday for creatinine of 1.2 on 07/23/24. Held right now. Small amounts of IV fluid being given.
-Mild ASTER with creatinine 1.2 continue to monitor.
Plan communicated with nursing. Myoclonic jerks from Ranexa increase with evaluation treatment and course, possible plan regarding catheterization if agreeable discussed at great length with patient and her daughter Milena.
HPI 08/10/2024:
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
CP. Patient was recently treated at [facility] in June 2024 for chest discomfort and was found to have newly reduced ejection fraction with EF of 38% which prompted her to undergo cardiac catheterization which demonstrated heavily
calcified multivessel coronary artery disease. Patient was deemed not a candidate for bypass surgery due to poor targets and no clear culprit lesion for PCI. Medical management was recommended. Patient was seen in outpatient cardiology office
07/20/2024 with ongoing anginal symptoms and was placed on isosorbide. Due to ongoing anginal symptoms patient's Coreg was doubled to 6.25 mg twice a day on 07/22/2024. She was also noted to have ASTER on outpatient laboratory studies and Lasix was
reduced to 20 mg Tuesday, Tuesday, Tuesday. Despite changes patient continued to have ongoing anginal symptoms and plan was to start Ranexa 500 mg twice a day (first dose 08/08). Patient reports she continues to have chest discomfort which
generally is relieved with 1 sublingual nitroglycerin for which she has been taking on a daily basis. She had 2-3 episodes of chest pain yesterday relieved with nitroglycerin. However in early hours of this morning she was awoken with chest
discomfort and took 3 nitroglycerin without significant improvement prompting her to come to emergency department. EKG in emergency department showed sinus rhythm with ST-T wave abnormality in inferior and anterior lateral segments. Initial
troponin noted to be elevated at 0.055 with 2nd trop 0.461. Chest x-ray showed no active disease. proBNP 841. Patient was given additional nitroglycerin as well as morphine and oxycodone and placed on heparin drip with improvement of chest
discomfort. Patient on heparin drip and is currently chest pain-free.
Progress Note - Manufacturing Industrial Engineer
Subjective
Date of Service: August 12, 2024
She is having myoclonic jerks. No chest pain.
Objective
Labs:
08/12/24 03:54
08/12/24 03:54
Labs
Hgb 11.7 g/dL (12.0-16.0) L 08/12/24 03:54
Hct 34.4 % (37.0-47.0) L 08/12/24 03:54
Plt Count 233 10^3/uL (130-400) 08/12/24 03:54
APTT 80.6 Sec (23.4-35.0) H 08/12/24 03:54
Sodium 138 mmol/L (135-145) 08/12/24 03:54
Potassium 4.6 mmol/L (3.5-5.1) 08/12/24 03:54
BUN 40 mg/dl (7-17) H 08/12/24 03:54
Creatinine 1.2 mg/dL (0.6-1.0) H 08/12/24 03:54
Glucose 103 mg/dl (70-99) H 08/12/24 03:54
Troponins
08/10/24 08/10/24 08/10/24
01:35 03:10 07:35
Troponin I 0.034 0.055 H* D 0.461 H* D
08/10/24 08/10/24 08/11/24
10:42 17:21 06:09
Troponin I 1.010 H* D 1.570 H* D 0.810 H*
Vital Signs and I&O:
Vital Signs
Temp Pulse Resp BP Pulse Ox
98 F 90 20 97/63 95
08/12/24 07:20 08/12/24 08:30 08/12/24 07:20 08/12/24 08:35 08/12/24 07:20
Vital Signs
Temp Pulse Resp BP Pulse Ox
98 F 90 20 97/63 95
08/12/24 07:20 08/12/24 08:30 08/12/24 07:20 08/12/24 08:35 08/12/24 07:20
Intake & Output
08/10/24 08/11/24 08/12/24 08/13/24
06:59 06:59 06:59 06:59
Intake Total 150 / 150
Output Total 375 / 375
Balance -225 / -225
Physical Exam
Physical Exam
General: Well developed, well nourished in NAD.
Heart: Non displaced PMI, RRR, no murmurs, No S3, S4, no rubs.
Lungs: Clear to auscultation bilaterally, no wheeze, rhonchi, rubs bilaterally,
Muscular: Myoclonic jerks
Extremities: No clubbing, cyanosis or edema bilaterally.
Neuro: Grossly nonfocal, awake, alert
[2024-08-12] MEDS: KLONOPIN 0.25 MG PO (09:48)
[2024-08-12] MEDS: NSS 500 IV (09:59)
[2024-08-12] MEDS: LIDOCAINE 4% PATCH 1 PATCH TOPICAL (13:19)
[2024-08-12] MEDS: TYLENOL 1000 MG PO ×2 (13:19→21:01)
[2024-08-12] MEDS: IMDUR (EXTENDED RELEASE) 30 MG PO (13:19)
[2024-08-12] MEDS: LIPITOR 40 MG PO (17:08)
[2024-08-12] MEDS: HEPARIN 25000 UNITS/250 ML IV (17:09)
[2024-08-12] MEDS: PROTONIX 40 MG PO (18:54)
[2024-08-12] MEDS: COREG 6.25 MG PO (19:09)
[2024-08-12] MEDS: CYMBALTA DELAYED RELEASE 60 MG PO (21:01)
--- NOTE | 2024-08-12 23:10 | PTCARENOTE ---
Pt received start of shift, HR SR. Pt c/o indigestion/heartburn after eating dinner. PRN PO protonix administered - see DEC. Pt denies any CP, SOB, or lightheadedness/dizziness. Pt w/ occasional b/l upper extremity twitches. Per pt and family
member, it is much more under control compared to earlier in the day. Pt ambulating x1 assist to bathroom w/ rolling walker.
[2024-08-13 02:45] VITALS: BP 141/57
[2024-08-13 03:13] LABS: Hematocrit 33.8 % (37.0-47.0); Hemoglobin 11.8 g/dL (12.0-16.0); Mean Corp Hgb Conc. 34.9 g/dL (33.0-37.0); Mean Corpuscular Hgb 33.5 pg (27.0-31.0); Mean Platelet Volume 9.7 fL (7.4-10.4); Platelet Count 236 10^3/uL (130-400); Red Blood Cell Count 3.52 10^6/uL (4.20-5.40); Red Cell Dist. Width 13.6 % (11.5-14.5); White Blood Cell Count 7.7 10^3/uL (4.8-10.8)
[2024-08-13 03:27] LABS: APTT 87.6 Sec (23.4-35.0)
[2024-08-13 04:02] LABS: Blood Urea Nitrogen 37 mg/dl (7-17); Calcium 8.9 mg/dl (8.4-10.2); Carbon Dioxide 26 mmol/L (22-30); Chloride 102 mmol/L (98-107); Estimated Creatinine Clearance 27 ml/min; Glucose 100 mg/dl (70-99); Potassium 4.2 mmol/L (3.5-5.1); Sodium 139 mmol/L (135-145); eGFR 48.33
[2024-08-13 04:33] LABS: TSH 0.13 uIU/ml (0.47-4.68)
[2024-08-13 04:52] LABS: Vitamin B12 < 159 pg/ml (239-931)
[2024-08-13] MEDS: TYLENOL 1000 MG PO ×2 (04:52→22:27)
[2024-08-13] MEDS: LIDOCAINE 4% PATCH 1 PATCH TOPICAL (04:53)
[2024-08-13] MEDS: SYNTHROID 88 MCG PO (04:56)
--- NOTE | 2024-08-13 05:05 | PTCARENOTE ---
Pt c/o 06/12 pain in back. TT [employer] Jean Marie, extra dose of 1000mg PO tylenol ordered and Lidocaine patch to be placed early - see DEC.
--- NOTE | 2024-08-13 05:25 | W.PN.HOSP.TC ---
Today's Communication/Plan
-
Plavix load, Coreg switched to Metoprolol, increased Imdur as per Cardio
start high dose B12 supplementation
follow up T4, continue Synthroid
NPO after midnight for possible benefit PCI Left Circumflex as per Cardio
Assessment / Plan
Assessment / Plan
Physical exam:
General: Well Developed, Well Nourished and No Apparent Distress
HEENT: Normocephalic, Atraumatic and Moist Mucous Membranes
Respiratory: Clear to Auscultation; Negative Wheezes, Rales or Rhonchi
Cardiac: Regular Rhythm and S1/S2
GI: Soft, Nontender and Nondistended
Musculoskeletal: No Clubbing, No Cyanosis and No Edema
Neuro: Awake, Alert and Oriented
Psych: Calm
A/P:
Acute Non-STEMI:
hep gtt completed
Continue aspirin statins
Home Coreg Switched to Metoprolol
Started on Imdur titrated up to 60 mg daily
ACEI disontinued d/t worsening ASTER as below
Ranexa discontinued due ASTER and myoclonic jerks
Appreciated cardiology consult patient loaded w/ Plavix
[place] to be poor candidate for surgical revascularization
Cardio in discussion with Interventional possible benefit complex PCI of left circumflex.
Myoclonic jerks
Likely metabolic in nature and medications related
improved with discontinuation Ranexa
ESR within normal limits for age
B12 severe deficiency noted, High dose B12 supplementation started
TSH noted low, follow up repeat with reflex T4
ASTER:
cont hold TRISH inhibitor and furosemide
Avoid nephrotoxic
Monitor renal function
HFrEF/chronic systolic CHF:
Continue beta-blockers
daily weight I/O
Hypothyroidism:
Continue levothyroxine 88 mcg p.o. daily
TSH low follow up reflex T4
Chronic pain with opiate dependence:
cont pain control
Hypertension:
Continue home antihypertensives except for adjustment as above.
Monitor blood pressure and adjust medications accordingly.
Hyperlipidemia:
Continue home statins
Diabetes mellitus type 2:
Continue insulin sliding scale
DVT prophylaxis: SCD
CODE STATUS:
DNR
Discussed with Patient and patient's son Rob
Total time spent on today's encounter was 50 minutes which included time spent in counseling the patient/family regarding diagnosis and treatment plan as listed above, goals of care, and symptom management. Case was discussed with nursing staff,
specialists, and care coordinators/case management. All labs and imaging personally reviewed by me. Remainder the time spent in detailed review of previous records, lab data, imaging, and other medical provider documentation.
Anticipated Discharge: > 48 hours
Subjective/Interval History
-
Date of Service: August 13, 2024
no acute distress resting comfortably in bed. Denies current chest pain.
Objective Data
-
Labs:
Laboratory Results
08/13/24
02:57
WBC 7.7
Hgb 11.8 L
Hct 33.8 L
Plt Count 236
APTT 87.6 H
Sodium 139
Potassium 4.2
Chloride 102
Carbon Dioxide 26
BUN 37 H
Creatinine 1.1 H
Glucose 100 H
Calcium 8.9
Vital Signs:
Vital Signs
Temp Pulse Resp BP Pulse Ox
98.3 F 66 18 141/57 94
08/13/24 02:45 08/13/24 03:00 08/13/24 02:45 08/13/24 02:45 08/13/24 02:45
I&O
08/11/24 08/12/24 08/13/24
06:59 06:59 06:59
Intake Total 150 / 150
Output Total 375 / 375 400 / 400
Balance -225 / -225 -400 / -400
--- NOTE | 2024-08-13 05:56 | PTCARENOTE ---
Pt reports no myoclonic jerks overnight. None observed since change of shift by this RN
[2024-08-13 06:00] VITALS: BMI 25.5
[2024-08-13 06:32] LABS: Erythrocyte Sed Rate 30 mm/hour (0-20)
[2024-08-13 07:14] VITALS: BP 146/68
--- NOTE | 2024-08-13 07:58 | W.PN.CARDCBS ---
Addendum entered and electronically signed by Manolo Fraser MD 08/13/24 10:19:
I saw and examined the patient.
The CLAIMS SERVICE REPRESENTATIVE or PA's note was reviewed and I agree with the note.
Comment: General: Well developed, well nourished in NAD.
Neck: Supple, no JVD, HJR, carotids +2 B/L, no bruits bilaterally.
Heart: Non displaced PMI, RRR, no murmurs, No S3, S4, no rubs.
Lungs: Scattered rhonchi
Extremities: No clubbing, cyanosis or edema bilaterally.
Neuro: Grossly nonfocal, awake, alert and oriented x3.
Considering circumflex stent. Discussed with interventional cardiology in detail. They will review films and render an opinion. This would occur on 08/14 if patient is felt to be a candidate. In the meantime we will maximize medical therapy and
stop IV heparin. Would load with Plavix. Will change Coreg to Toprol and increase Imdur to 60 mg daily. Will try to ambulate patient off of IV heparin.
Original Note:
Today's Communication / Plan
-
Resume oxycodone as myoclonic jerks resolved
Continue to hold Lasix and lisinopril
Stop heparin drip
Load with Plavix 600 mg x 1 then 75 mg daily after
Change Coreg to Toprol 25 mg BID and increase Imdur to 60 mg
Will have interventional cardiology review films with possible left circumflex intervention
Impression / Plan
-
Primary Laborer Hoisting: Dr. Fraser
Impression:
Presents 08/10/2024 with ongoing angina/chest pain
Abnormal troponin
ASTER
Myoclonic jerks secondary to Ranexa. Resolved
Multivessel heavily calcified coronary artery disease on cath 06/22/2024; deemed poor candidate for CABG and no clear culprit lesion for PCI
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
HTN
HLD
DM2
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
Hypothyroidism
History of multiple back surgeries with spinal stimulator in place
History of UTI
ECHO 09/22/2022: EF 57%, mild concentric LVH, trace MR, mild AR, mild TR, PAP 21 mmHg
ECHO 06/28/24: Global hypokinesis, EF 38%, mild concentric LVH, stage I diastolic dysfunction, mild MR, aortic sclerosis, mild to moderate AR
cath 06/29/24: Heavily calcified coronary arteries with significant multivessel disease. 40% left main, 70% proximal LAD, 85% left circumflex, 85% mid RCA with 100% occluded RPDA
Plan:
-Presents 08/10/2024 with ongoing angina/chest pain and acute coronary syndrome/non-Q wave myocardial infarction with peak troponin 1.57. There is seems to be an component of her angina only triggered in the cold weather and activity by report which
may indicate some degree of spasm. She was having increased nitroglycerin use and took 3 nitroglycerin when she had chest pain that woke her from sleep prior to admission without improvement of chest pain.
-She was tolerating increases of antianginal medication with increased carvedilol, the addition of isosorbide and on heparin drip. She was recently started on Ranexa 500 mg twice daily. Ranexa increased to 1000 mg BID on 08/11 to 1000 mg twice
daily.
-Unfortunately she began having some myoclonic jerks on 08/12. EKG is stable. Was also getting oxycodone. Monoclinic jerks likely side effect from Ranexa and oxycodone.
Would not rechallenge with Ranexa. Last dose 08/12 in AM.
Monoclinic jerks resolved 08/13/24
Patient admits to significant pain off oxycodone and difficulty sleeping, will resume oxycodone 08/13 since myoclonic jerks resolved.
-In an effort to improve antianginal treatment would stop Coreg given this has more potent blood pressure lowering response and trial Toprol 25 mg twice a day. Increase Imdur to 60 mg daily.
- Continue to hold Lisinopril and Lasix for now. BUN/creatinine 37/1.1.
-She did rule in for GA, peak troponin 1.57. Antianginal treatment is going to be limited given intermittent low blood pressure, intolerance now to Ranexa and prior intolerance to amlodipine.
-Stop heparin drip and continue ASA 81 mg. Load with Plavix 600 mg x 1 (08/13) then 75 mg after.
-As noted patient had cardiac catheterization in June 2024 and was felt to be a poor surgical candidate by CT surgery. There was no clear culprit lesion for PCI at that time with recommendation of advancing medical management/antianginals.
-There has been discussion with interventional cardiology regarding intervening on left circumflex artery. This is a heavily calcified lesion and likely complicated higher risk procedure. Await response with med changes noted above. Will have pt
ambulate around the unit today. Denies chest pain in last 48 hours
-Ischemic cardiomyopathy with most recent EF 38% on echo June 2024. Continue GDMT - change Coreg to Toprol. Lisinopril and Lasix now on hold pending cath. Eventual resumption. With renal insufficiency at this time would not add Aldactone or
SGLT2 inhibitors (history of frequent UTIs).
-No evidence of volume overload or heart failure on examination. proBNP 841. Lasix had been reduced as outpatient to Tuesday, Tuesday, Tuesday for creatinine of 1.2 on 07/23/24. Held right now. Small amounts of IV fluid being given. 08/12
-Mild ASTER with creatinine 1.2, improved to 1.1 after gentle fluid bolus 08/12. continue to monitor.
Plan communicated with nursing.
HPI 08/10/2024:
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
CP. Patient was recently treated at [facility] in June 2024 for chest discomfort and was found to have newly reduced ejection fraction with EF of 38% which prompted her to undergo cardiac catheterization which demonstrated heavily
calcified multivessel coronary artery disease. Patient was deemed not a candidate for bypass surgery due to poor targets and no clear culprit lesion for PCI. Medical management was recommended. Patient was seen in outpatient cardiology office
07/20/2024 with ongoing anginal symptoms and was placed on isosorbide. Due to ongoing anginal symptoms patient's Coreg was doubled to 6.25 mg twice a day on 07/22/2024. She was also noted to have ASTER on outpatient laboratory studies and Lasix was
reduced to 20 mg Tuesday, Tuesday, Tuesday. Despite changes patient continued to have ongoing anginal symptoms and plan was to start Ranexa 500 mg twice a day (first dose 08/08). Patient reports she continues to have chest discomfort which
generally is relieved with 1 sublingual nitroglycerin for which she has been taking on a daily basis. She had 2-3 episodes of chest pain yesterday relieved with nitroglycerin. However in early hours of this morning she was awoken with chest
discomfort and took 3 nitroglycerin without significant improvement prompting her to come to emergency department. EKG in emergency department showed sinus rhythm with ST-T wave abnormality in inferior and anterior lateral segments. Initial
troponin noted to be elevated at 0.055 with 2nd trop 0.461. Chest x-ray showed no active disease. proBNP 841. Patient was given additional nitroglycerin as well as morphine and oxycodone and placed on heparin drip with improvement of chest
discomfort. Patient on heparin drip and is currently chest pain-free.
Progress Note - Laborer Hoisting
Subjective
Date of Service: August 13, 2024
Patient seen and examined. Patient sitting on edge of bed. Reports she slept poorly because of ongoing arthritis and back pain. She reports myoclonic jerks have resolved. She denies having chest pain or angina symptoms.
Objective
Labs:
08/13/24 02:57
08/13/24 02:57
Labs
Hgb 11.8 g/dL (12.0-16.0) L 08/13/24 02:57
Hct 33.8 % (37.0-47.0) L 08/13/24 02:57
Plt Count 236 10^3/uL (130-400) 08/13/24 02:57
APTT 87.6 Sec (23.4-35.0) H 08/13/24 02:57
Sodium 139 mmol/L (135-145) 08/13/24 02:57
Potassium 4.2 mmol/L (3.5-5.1) 08/13/24 02:57
BUN 37 mg/dl (7-17) H 08/13/24 02:57
Creatinine 1.1 mg/dL (0.6-1.0) H 08/13/24 02:57
Glucose 100 mg/dl (70-99) H 08/13/24 02:57
Troponins
08/10/24 08/10/24 08/10/24
07:35 10:42 17:21
Troponin I 0.461 H* D 1.010 H* D 1.570 H* D
08/11/24
06:09
Troponin I 0.810 H*
Vital Signs and I&O:
Vital Signs
Temp Pulse Resp BP Pulse Ox
98.3 F 66 16 141/57 98
08/13/24 07:32 08/13/24 03:00 08/13/24 07:32 08/13/24 02:45 08/13/24 07:32
Vital Signs
Temp Pulse Resp BP Pulse Ox
98.3 F 66 16 141/57 98
08/13/24 07:32 08/13/24 03:00 08/13/24 07:32 08/13/24 02:45 08/13/24 07:32
Intake & Output
08/11/24 08/12/24 08/13/24 08/14/24
06:59 06:59 06:59 06:59
Intake Total 150 / 150
Output Total 375 / 375 400 / 400
Balance -225 / -225 -400 / -400
Physical Exam
Physical Exam
GEN: No distress, awake, Ox3, sitting on edge of bed
HEENT: supple, anicteric, mmm
LUNGS: CTA, no wheezes/rales
CV: Reg, S1/S2, 1/6 syst murmur, no rub or gallop
ABD: soft, BS+, NT/ND
EXT: No edema, clubbing or cyanosis
NEURO: Gross non-focal
SKIN: No rash, warm, dry, pink
[2024-08-13] MEDS: IMDUR (EXTENDED RELEASE) 30 MG PO ×2 (08:18→09:37)
[2024-08-13] MEDS: LOW STRENGTH ASPIRIN 81 MG PO (08:18)
[2024-08-13] MEDS: COREG 6.25 MG PO (08:18)
[2024-08-13] MEDS: ROXICODONE 10 MG PO ×3 (08:19→20:19)
[2024-08-13] MEDS: TYLENOL PO ×2 (08:20→13:58)
[2024-08-13] MEDS: PLAVIX 600 MG PO (09:37)
[2024-08-13] MEDS: FLUSH (NSS) 1 FLUSH IV (09:37)
--- NOTE | 2024-08-13 10:19 | PTCARENOTE ---
Received patient this morning resting in bed. Having severe lower back pain, radiating down her legs, rated as an 8/10. Patient seen by cardiology and since no further jerking type movements, will restart oxycodone. Patient medicated with 10mg as
ordered with relief of pain.
[2024-08-13 12:09] VITALS: BP 110/63
--- NOTE | 2024-08-13 14:00 | PTCARENOTE ---
patient called out c/o chronic back pain, Roxicodone po given as ordered. patient refused tylenol at this time.
[2024-08-13 16:15] VITALS: BP 133/68
[2024-08-13 16:42] LABS: Free T4 1.64 ng/dl (0.78-2.19)
[2024-08-13] MEDS: LIPITOR 40 MG PO (17:28)
[2024-08-13] MEDS: CYANOCOBALAMIN 1000 MCG IM (17:28)
--- NOTE | 2024-08-13 19:23 | PTCARENOTE ---
Ambulated the patient in the jenkins with her rolling walker. Denied any chest pain or sob. Sitting oob in the chair now.
[2024-08-13 20:11] VITALS: BP 121/69
[2024-08-13] MEDS: TOPROL XL 25 MG PO (20:19)
[2024-08-13 22:24] VITALS: BP 138/68
[2024-08-13] MEDS: CYMBALTA DELAYED RELEASE 60 MG PO (22:27)
[2024-08-14] VITALS (7 sets, daily range): BP systolic 103–136; BP diastolic 43–67; BMI 25.0
[2024-08-14] MEDS: ROXICODONE 10 MG PO ×4 (00:36→22:41)
--- NOTE | 2024-08-14 01:52 | PTCARENOTE ---
Pt received at change of shift. SR on tele with HR 70s-80s. Pt with complaints of lower back pain which is chronic for her, Roxicodone administered per orders, see MAR. No complaints of CP at this time. Pt ambulating with standby assist and
rolling walker. Pt remains NPO since midnight for possible cardiac cath in AM. Can make needs known. Call osorio within reach.
[2024-08-14] MEDS: SYNTHROID 88 MCG PO (05:04)
[2024-08-14] MEDS: TYLENOL 1000 MG PO ×3 (05:04→22:41)
[2024-08-14 05:35] LABS: Hematocrit 33.8 % (37.0-47.0); Hemoglobin 11.5 g/dL (12.0-16.0); Mean Corpuscular Hgb 32.5 pg (27.0-31.0); Mean Corpuscular Volume 95.5 fL (81.0-99.0); Mean Platelet Volume 9.9 fL (7.4-10.4); Platelet Count 233 10^3/uL (130-400); Red Blood Cell Count 3.54 10^6/uL (4.20-5.40); Red Cell Dist. Width 13.6 % (11.5-14.5)
[2024-08-14 05:55] LABS: Blood Urea Nitrogen 27 mg/dl (7-17); Calcium 9.3 mg/dl (8.4-10.2); Carbon Dioxide 23 mmol/L (22-30); Chloride 105 mmol/L (98-107); Estimated Creatinine Clearance 27 ml/min; Glucose 89 mg/dl (70-99); Magnesium 1.2 mg/dl (1.6-2.3); Phosphorus 3.4 mg/dl (2.5-4.5); Potassium 4.4 mmol/L (3.5-5.1); Sodium 139 mmol/L (135-145); eGFR 48.33
--- NOTE | 2024-08-14 07:53 | W.PN.HOSP.TC ---
Today's Communication/Plan
-
Cont optimization cardiac meds as per Cardiology
pain control
encourage ambulation
cont asa plavix
monitor renal function
Assessment / Plan
Assessment / Plan
Physical exam:
General: Well Developed, Well Nourished and No Apparent Distress
HEENT: Normocephalic, Atraumatic and Moist Mucous Membranes
Respiratory: Clear to Auscultation; Negative Wheezes, Rales or Rhonchi
Cardiac: Regular Rhythm and S1/S2
GI: Soft, Nontender and Nondistended
Musculoskeletal: No Clubbing, No Cyanosis and No Edema
Neuro: Awake, Alert and Oriented
Psych: Calm
A/P:
Acute Non-STEMI:
hep gtt completed
Continue aspirin statins
Home Coreg Switched to Metoprolol
Started on Imdur titrated up to 60 mg daily
ACEI disontinued d/t worsening ASTER as below
Ranexa discontinued due ASTER and myoclonic jerks
Appreciated cardiology consult patient loaded w/ Plavix
Beemer to be poor candidate for surgical revascularization
Interventional Cardio eval appreciated, Risks of intervention high, medical mgmt assessed to be optimum strategy at this time.
#Myoclonic jerks
Likely metabolic in nature and medications related
improved with discontinuation Ranexa
ESR within normal limits for age
#B12 severe deficiency noted, High dose B12 supplementation started
TSH noted low, T4 however wnl. Repeat Thyroid Function test in 1 month recommended
Mild ASTER:
cont hold TRISH inhibitor and furosemide
Avoid nephrotoxic
Monitor renal function
HFrEF/chronic systolic CHF:
Continue beta-blockers
daily weight I/O
Hypothyroidism:
Continue levothyroxine 88 mcg p.o. daily
TSH low follow up reflex T4 wnl
Repeat Thyroid function test recommended in 1 month
Chronic pain with opiate dependence:
cont pain control
Hypertension:
Continue antihypertensives except for adjustment as above.
Monitor blood pressure and adjust medications accordingly.
Hyperlipidemia:
Continue home statins
Correction to prior documentation most recent A1c's not prediabetes
Jun 2024 A1c 5.8, no need to repeat at this time.
no need for routine fingersticks
DVT prophylaxis: SCD
CODE STATUS:
DNR
Discussed with Patient. Cardiology's discussion with patient and patient's daughter Milena appreciated.
I spent a total of 40 minutes with the patient or on the floor. More than 50% of this time involved counseling and coordination of care.
Anticipated Discharge: 24 - 48 hours
Subjective/Interval History
-
Date of Service: August 14, 2024
No acute distress resting comfortably in bed. Overall patient reports feeling well. Denies new acute issues at this time. Chest pain free.
Objective Data
-
Labs:
Laboratory Results
08/14/24
05:01
WBC 7.0
Hgb 11.5 L
Hct 33.8 L
Plt Count 233
Sodium 139
Potassium 4.4
Chloride 105
Carbon Dioxide 23
BUN 27 H
Creatinine 1.1 H
Glucose 89
Calcium 9.3
Vital Signs:
Vital Signs
Temp Pulse Resp BP Pulse Ox
98.2 F 59 16 113/46 98
08/14/24 07:33 08/14/24 07:32 08/14/24 07:33 08/14/24 07:32 08/14/24 07:33
I&O
08/13/24 08/14/24 08/15/24
06:59 06:59 06:59
Intake Total 240 / 240
Output Total 400 / 400
Balance -400 / -400 240 / 240
[2024-08-14] MEDS: TOPROL XL PO (08:47)
--- NOTE | 2024-08-14 08:47 | PTCARENOTE ---
PT's HR 40-50's this morning, Metoprolol not given, will inform cards.
[2024-08-14] MEDS: LIDOCAINE 4% PATCH 1 PATCH TOPICAL (08:50)
[2024-08-14] MEDS: LOW STRENGTH ASPIRIN 81 MG PO (08:50)
[2024-08-14] MEDS: PLAVIX 75 MG PO (08:50)
--- NOTE | 2024-08-14 09:31 | W.PN.CARDCBS ---
Addendum entered and electronically signed by Jyothi Elias MD 08/14/24 15:50:
I saw and examined the patient.
The Raised Printer's note was reviewed and I agree with the note.
Comment: Patient is doing well and does not offer any major complaints this morning. She ambulated yesterday out of bed without any recurrent chest discomfort. No chest pain overnight. Her diarrhea from yesterday has also improved.
Vital signs and lab work reviewed. On exam patient is extremely frail, elderly female in no acute distress in bed, normal S1 and S2, 2 out of 6 systolic ejection murmur over the right upper sternal border, no rubs or gallops, lungs are clear to
auscultation bilaterally, mildly elevated JVD, abdomen is soft, nontender, nondistended with active bowel sounds, warm extremities without significant edema.
Recommendations:
1. I reviewed her prior heart catheterization from June showing heavily calcified coronary artery disease with multivessel coronary artery disease. Proximal left circumflex is a heavily calcified lesion and my concern is there is significant
distal left main disease which would need to be treated prior to approaching the proximal left circumflex artery would likely atherectomy which then necessitates a higher risk to send strategy involving left main, LAD and the left circumflex artery.
2. In this 89-year-old otherwise very frail, thin and elderly female, after being the risk and benefits I think she would be best managed medically.
3. We have discontinued her Ranexa due to concerns for myoclonic jerks related to this which are now resolved.
4. We uptitrated her Imdur yesterday which she seems to be tolerating well. To allow for blood pressure room we switched her from carvedilol to Toprol.
5. In the setting of ACS, we will also continue dual antiplatelet therapy along with statin.
6. All of the above was discussed in detail with patient and her daughter, Milena, both of whom really understanding and agree with the plan.
7. Continue to get out of bed and ambulate and as long as patient remains asymptomatic will aim to discharge home tomorrow versus .
8. Referral for outpatient cardiac rehab.
Jyothi Elias MD, [facility], [facility]
Original Note:
Today's Communication / Plan
-
interventional to review options regarding CAD/circ lesion with patient today- likely med mgmt
no CP overnight
follow HRs on tele - toprol held this AM due to bradycardia
continue asa, plavix, imdur
check CVE
Impression / Plan
-
Primary Access Rep: Dr. Fraser
Impression:
Presents 08/10/2024 with ongoing angina/chest pain
Abnormal troponin
ASTER
Myoclonic jerks secondary to Ranexa. Resolved
Multivessel heavily calcified coronary artery disease on cath 06/22/2024; deemed poor candidate for CABG and no clear culprit lesion for PCI
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
HTN
HLD
DM2
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
Hypothyroidism
History of multiple back surgeries with spinal stimulator in place
History of UTIs
ECHO 09/22/2022: EF 57%, mild concentric LVH, trace MR, mild AR, mild TR, PAP 21 mmHg
ECHO 06/28/24: Global hypokinesis, EF 38%, mild concentric LVH, stage I diastolic dysfunction, mild MR, aortic sclerosis, mild to moderate AR
cath 06/29/24: Heavily calcified coronary arteries with significant multivessel disease. 40% left main, 70% proximal LAD, 85% left circumflex, 85% mid RCA with 100% occluded RPDA
Plan:
-she presented with cp and ruled in for NSTEMI with peak trop 1.57. cold weather seems to be a trigger for her angina which could indicate some degree of spasm.
-she was transitioned from coreg to toprol - HRs presently in 50s, continue toprol with hold parameters. imdur was added. ranexa was discontinued 08/12 due to myoclonic jerks and would not retrial. prior intolerance to norvasc.
-EF 38% by echo 06/2024 as above. hypotension has limited antianginal/CM treatment. holding OP lisinopril and lasix for now. given RI and history of freq UTIs, would not add Aldactone or SGLT2 inhibitors
-continue asa, plavix
-As noted patient had cardiac catheterization in June 2024 and was felt to be a poor surgical candidate by CT surgery. There was no clear culprit lesion for PCI at that time with recommendation of advancing medical management/antianginals.
interventional cardiology reviewed cath films 06/2024 and to review options regarding CAD/circ lesion with patient today - intervention felt to be high risk
-no recent CP
-check CVE. continue lipitor
-d/w nursing
HPI 08/10/2024:
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
CP. Patient was recently treated at [facility] in June 2024 for chest discomfort and was found to have newly reduced ejection fraction with EF of 38% which prompted her to undergo cardiac catheterization which demonstrated heavily
calcified multivessel coronary artery disease. Patient was deemed not a candidate for bypass surgery due to poor targets and no clear culprit lesion for PCI. Medical management was recommended. Patient was seen in outpatient cardiology office
07/20/2024 with ongoing anginal symptoms and was placed on isosorbide. Due to ongoing anginal symptoms patient's Coreg was doubled to 6.25 mg twice a day on 07/22/2024. She was also noted to have ASTER on outpatient laboratory studies and Lasix was
reduced to 20 mg Tuesday, Tuesday, Tuesday. Despite changes patient continued to have ongoing anginal symptoms and plan was to start Ranexa 500 mg twice a day (first dose 08/08). Patient reports she continues to have chest discomfort which
generally is relieved with 1 sublingual nitroglycerin for which she has been taking on a daily basis. She had 2-3 episodes of chest pain yesterday relieved with nitroglycerin. However in early hours of this morning she was awoken with chest
discomfort and took 3 nitroglycerin without significant improvement prompting her to come to emergency department. EKG in emergency department showed sinus rhythm with ST-T wave abnormality in inferior and anterior lateral segments. Initial
troponin noted to be elevated at 0.055 with 2nd trop 0.461. Chest x-ray showed no active disease. proBNP 841. Patient was given additional nitroglycerin as well as morphine and oxycodone and placed on heparin drip with improvement of chest
discomfort. Patient on heparin drip and is currently chest pain-free.
Progress Note - Access Rep
Subjective
Date of Service: August 14, 2024
no issues overnight. resting comfortably
Objective
Labs:
08/14/24 05:01
08/14/24 05:01
Labs
Hgb 11.5 g/dL (12.0-16.0) L 08/14/24 05:01
Hct 33.8 % (37.0-47.0) L 08/14/24 05:01
Plt Count 233 10^3/uL (130-400) 08/14/24 05:01
APTT 87.6 Sec (23.4-35.0) H 08/13/24 02:57
Sodium 139 mmol/L (135-145) 08/14/24 05:01
Potassium 4.4 mmol/L (3.5-5.1) 08/14/24 05:01
BUN 27 mg/dl (7-17) H 08/14/24 05:01
Creatinine 1.1 mg/dL (0.6-1.0) H 08/14/24 05:01
Glucose 89 mg/dl (70-99) 08/14/24 05:01
Vital Signs and I&O:
Vital Signs
Temp Pulse Resp BP Pulse Ox
98.2 F 46 16 113/46 98
08/14/24 07:33 08/14/24 08:47 08/14/24 07:33 08/14/24 07:32 08/14/24 07:33
Vital Signs
Temp Pulse Resp BP Pulse Ox
98.2 F 46 16 113/46 98
08/14/24 07:33 08/14/24 08:47 08/14/24 07:33 08/14/24 07:32 08/14/24 07:33
Intake & Output
08/12/24 08/13/24 08/14/24 08/15/24
07:59 07:59 07:59 07:59
Intake Total 240 / 240
Output Total 400 / 400
Balance -400 / -160 240 / 240
Physical Exam
Physical Exam
GEN: No distress, awake, resting comfortably
HEENT: supple, anicteric, mmm, eomi
LUNGS: CTA B/L, no wheezes
CV: Reg and claribel, S1/S2, no murmur
ABD: soft, BS+, NT/ND
EXT: No cyanosis, clubbing, edema
NEURO: Gross non-focal
SKIN: Warm, pink, dry. No rash
[2024-08-14] MEDS: MAGNESIUM SULFATE 100 IV (10:08)
[2024-08-14] MEDS: IMDUR (EXTENDED RELEASE) 60 MG PO (10:10)
[2024-08-14 10:33] LABS: HDL Cholesterol 51 mg/dl; LDL Cholesterol, Calculated 57 mg/dl; Total Cholesterol 126 mg/dl (50-199); Triglyceride 92 mg/dl (10-149); Very Low Density Lipoprotein 18 mg/dl (0-30)
--- NOTE | 2024-08-14 12:43 | CM ---
Chart reviewed. Patient is independent of ADLS, lives alone in a [address], [address] [facility], ambulates with a SPC and also has a RW at home. Plan is for the patient to return home. CM to follow
--- NOTE | 2024-08-14 13:33 | PN.CDI ---
CDI
- -
CDI:
Physician Documentation Request
Admit Date: 08/10/24 04:49
Dear Doctor Fitz,
Patient admitted for NSTEMI.
08/13 Hospitalist PN: 'ASTER:
cont hold TRISH inhibitor and furosemide
Avoid nephrotoxic
Monitor renal function'
Laboratory Tests
06/30/24 08/10/24 08/11/24
05:06 01:35 06:09
Creatinine 0.8 1.2 H 1.1 H
The purpose of this query is not to question medical judgement, but to ensure the accuracy of the conditions reported for your patient.
There is either a lack of clinical support for this condition in the current medical record, or there is a lack of recognized standard criteria to support the condition.
Criteria for ASTER*
1 Increase in serum creatinine by > or = to 0.3 mg/dL (> or = to 26.5 micromol/L) within 48 hours, OR
2 Increase in serum creatinine to > or = to 1.5 times baseline, which is known or presumed to have occurred within 7 days, OR
3 Urine volume < 0.5 nL/kg/hour for six hours
The request is for one of the following:
- Additional documentation to support the condition. Indicate if this is in lieu of what may be considered standard criteria, and/or support why the standard criteria may not be present for this patient.
- A more appropriate diagnosis, reflecting the patient's condition
- ASTER remains a known or suspected condition for this patient and is further supported by (include additional documentation in the medical record)
- ASTER has been ruled out and a more appropriate diagnosis for this patient's condition is .
- Other (please specify)
- Unable to determine
Use of terms such as suspected, likely, concern for, or probable (associated with a specific diagnosis that is being evaluated, monitored, or treated as if it exists) are acceptable and can be coded in the inpatient setting, when documented at the
time of discharge.
Thank you,
Janice Mayers RN, BSN
CDI Specialist
Available via [place] text
Please use your independent medical judgment in providing your response.
--- NOTE | 2024-08-14 14:46 | PTCARENOTE ---
Pt c/o low back pain, 04/11. Med with oxycodone 10 mg po as ordered w/ relief noted.
--- NOTE | 2024-08-14 15:12 | PTCARENOTE ---
Pt ambulated in jenkins w/ rolling walker and supervision, jordy well. Denied chest pain.
[2024-08-14] MEDS: LIPITOR 40 MG PO (17:39)
[2024-08-14] MEDS: TOPROL XL 25 MG PO (20:48)
[2024-08-14] MEDS: CYMBALTA DELAYED RELEASE 60 MG PO (22:41)
--- NOTE | 2024-08-14 23:00 | PTCARENOTE ---
Pt remains SR/Sinus claribel on tele with HR 50s-60s. Denies CP and SOB. Pt with c/o lower back pain, Any administered per orders, see MAR. Ambulating with standby assist and rolling walker. Call osorio within reach.
[2024-08-15] VITALS (7 sets, daily range): BP systolic 106–144; BP diastolic 50–87; PULSE 63–88; O2SAT 96; BMI 25.0
[2024-08-15] MEDS: ROXICODONE 10 MG PO ×2 (04:05→13:16)
[2024-08-15 04:42] LABS: Hemoglobin 12.9 g/dL (12.0-16.0); Mean Corp Hgb Conc. 33.1 g/dL (33.0-37.0); Mean Corpuscular Hgb 33.2 pg (27.0-31.0); Mean Corpuscular Volume 100.5 fL (81.0-99.0); Mean Platelet Volume 9.8 fL (7.4-10.4); Platelet Count 251 10^3/uL (130-400); Red Blood Cell Count 3.88 10^6/uL (4.20-5.40); Red Cell Dist. Width 13.6 % (11.5-14.5); White Blood Cell Count 7.2 10^3/uL (4.8-10.8)
[2024-08-15 05:14] LABS: Blood Urea Nitrogen 26 mg/dl (7-17); Calcium 9.8 mg/dl (8.4-10.2); Carbon Dioxide 25 mmol/L (22-30); Chloride 104 mmol/L (98-107); Estimated Creatinine Clearance 27 ml/min; Glucose 101 mg/dl (70-99); Magnesium 2.2 mg/dl (1.6-2.3); Phosphorus 3.7 mg/dl (2.5-4.5); Potassium 4.7 mmol/L (3.5-5.1); Sodium 137 mmol/L (135-145); eGFR 54.19
[2024-08-15] MEDS: TYLENOL 1000 MG PO ×2 (06:41→13:16)
[2024-08-15] MEDS: SYNTHROID 88 MCG PO (06:41)
--- NOTE | 2024-08-15 08:18 | W.PN.HOSP.TC ---
Today's Communication/Plan
-
discharge
Assessment / Plan
Assessment / Plan
Physical exam:
General: Well Developed, Well Nourished and No Apparent Distress
HEENT: Normocephalic, Atraumatic and Moist Mucous Membranes
Respiratory: Clear to Auscultation; Negative Wheezes, Rales or Rhonchi
Cardiac: Regular Rhythm and S1/S2
GI: Soft, Nontender and Nondistended
Musculoskeletal: No Clubbing, No Cyanosis and No Edema
Neuro: Awake, Alert and Oriented
Psych: Calm
A/P:
Acute Non-STEMI:
hep gtt completed
Continue aspirin statins
Home Coreg Switched to Metoprolol
Started on Imdur titrated up to 60 mg daily
ACEI held d/t ASTER,
Ranexa discontinued due ASTER and myoclonic jerks
Appreciated cardiology consult patient loaded w/ Plavix
[place] to be poor candidate for surgical revascularization
Interventional Cardio eval appreciated, Risks of intervention high, medical mgmt assessed to be optimum strategy at this time.
#Myoclonic jerks
Likely metabolic in nature and medications related
improved with discontinuation Ranexa
ESR within normal limits for age
#B12 severe deficiency noted, High dose B12 supplementation started
TSH noted low, T4 however wnl. Repeat Thyroid Function test in 1 month recommended
Mild ASTER (likely baseline Cr 0.8 prior to admission, Cr 1.2 on initial presentation trending down)
TRISH inhibitor and furosemide briefly held, resumed as per Cardio
Avoid nephrotoxic
Monitor renal function
HFrEF/chronic systolic CHF:
Continue beta-blockers
daily weight I/O
Hypothyroidism:
Continue levothyroxine 88 mcg p.o. daily
TSH low follow up reflex T4 wnl
Repeat Thyroid function test recommended in 1 month
Chronic pain with opiate dependence:
cont pain control
Hypertension:
Continue antihypertensives except for adjustment as above.
Monitor blood pressure and adjust medications accordingly.
Hyperlipidemia:
Continue home statins
Prediabetes
PT/OT appreciated Home services vs home no needs (patient declines VN services)
DVT prophylaxis: SCD
CODE STATUS:
DNR
Medically stable for discharge home with outaptient follow up recommendations
Discussed with Patient and patient's Daughter Milena
Total Time Preparing Discharge ___40____ minutes including examination of the patient, summary of the hospital stay, instructions for continuing care to all relevant caregivers; and preparation of discharge records, prescriptions, and referral
forms if necessary.
Anticipated Discharge: Today
Subjective/Interval History
-
Date of Service: August 15, 2024
No acute distress. Patient reports overall feeling well. Denies new acute issues at this time. Eager to go home.
Objective Data
-
Labs:
Laboratory Results
08/15/24
04:16
WBC 7.2
Hgb 12.9
Hct 39.0
Plt Count 251
Sodium 137
Potassium 4.7
Chloride 104
Carbon Dioxide 25
BUN 26 H
Creatinine 1.0
Glucose 101 H
Calcium 9.8
Vital Signs:
Vital Signs
Temp Pulse Resp BP Pulse Ox
98.2 F 60 20 144/67 98
08/15/24 07:49 08/15/24 04:01 08/15/24 07:49 08/15/24 04:01 08/15/24 07:49
I&O
08/14/24 08/15/24 08/16/24
06:59 06:59 06:59
Intake Total 240 / 240 480 / 480
Balance 240 / 240 480 / 480
[2024-08-15] MEDS: LIDOCAINE 4% PATCH 1 PATCH TOPICAL (08:53)
[2024-08-15] MEDS: IMDUR (EXTENDED RELEASE) 60 MG PO (08:53)
[2024-08-15] MEDS: TOPROL XL PO (08:54)
[2024-08-15] MEDS: PLAVIX 75 MG PO (08:54)
[2024-08-15] MEDS: LOW STRENGTH ASPIRIN 81 MG PO (08:54)
--- NOTE | 2024-08-15 09:23 | W.PN.CARDCBS ---
Addendum entered and electronically signed by Jyothi Elias MD 08/15/24 13:14:
I saw and examined the patient.
The Registry Nurse's note was reviewed and I agree with the note.
Comment: Patient is doing well and does not offer any major complaints this morning. No chest pain overnight.
Vital signs and lab work reviewed. On exam patient is extremely frail, elderly female in no acute distress in bed, normal S1 and S2, 2 out of 6 systolic ejection murmur over the right upper sternal border, no rubs or gallops, lungs are clear to
auscultation bilaterally, mildly elevated JVD, abdomen is soft, nontender, nondistended with active bowel sounds, warm extremities without significant edema.
Recommendations:
1. Continue optimization of medical therapy with higher dose of Imdur which she seems to be tolerating well. Given morning bradycardia we will plan on Toprol-XL 25 mg only at bedtime once daily.
2. Given stable renal function we will plan to resume 2.5 mg of daily lisinopril and 20 mg of daily Lasix to maintain euvolemia with plan for outpatient lab work including renal function and electrolytes.
3. We have discontinued her Ranexa due to concerns for myoclonic jerks related to this which are now resolved.
4. In the setting of ACS, we will also continue dual antiplatelet therapy along with statin.
5. Outpatient cardiology follow-up will be set up. Otherwise stable for discharge from a cardiac standpoint.
Jyothi Elias MD, [facility], [facility]
Original Note:
Today's Communication / Plan
-
no CP
continue imdur 60mg daily (dose increased this admission)
decrease toprol to 25mg HS
resume lisinopril 2.5mg daily and lasix 20mg daily
continue asa, plavix, statin
BMP in 1 week
OP cardiac follow up arranged
Impression / Plan
-
Primary Signals Intelligence Analyst: Dr. Fraser
Impression:
Presents 08/10/2024 with ongoing angina/chest pain
Abnormal troponin
ASTER
Myoclonic jerks secondary to Ranexa. Resolved
Multivessel heavily calcified coronary artery disease on cath 06/22/2024; deemed poor candidate for CABG and no clear culprit lesion for PCI
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
HTN
HLD
DM2
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
Hypothyroidism
History of multiple back surgeries with spinal stimulator in place
History of UTIs
ECHO 09/22/2022: EF 57%, mild concentric LVH, trace MR, mild AR, mild TR, PAP 21 mmHg
ECHO 06/28/24: Global hypokinesis, EF 38%, mild concentric LVH, stage I diastolic dysfunction, mild MR, aortic sclerosis, mild to moderate AR
cath 06/29/24: Heavily calcified coronary arteries with significant multivessel disease. 40% left main, 70% proximal LAD, 85% left circumflex, 85% mid RCA with 100% occluded RPDA
Plan:
-she presented with cp and ruled in for NSTEMI with peak trop 1.57. cold weather seems to be a trigger for her angina which could indicate some degree of spasm.
-she was transitioned from coreg to toprol - HRs presently in 50s and AM toprol has been held last 2 days - decreased dose to 25mg HS on 08/15. imdur was added. ranexa was discontinued 08/12 due to myoclonic jerks and would not retrial. prior
intolerance to norvasc. reports was ambulatory around unit without difficulty or CP yesterday. no CP overnight
-EF 38% by echo 06/2024 as above. BPs improved this AM and Cr improved to 1.0 - will resume lisinopril at lower dose of 2.5mg daily and po lasix 20mg daily. follow BPs, can uptitrate as OP as able. given RI and history of freq UTIs, would not add
Aldactone or SGLT2 inhibitors
-BMP in 1 week upon DC
-continue asa, plavix
-As noted patient had cardiac catheterization in June 2024 and was felt to be a poor surgical candidate by CT surgery. There was no clear culprit lesion for PCI at that time with recommendation of advancing medical management/antianginals.
interventional cardiology reviewed cath films 06/2024 and concern for need for L main intervention prior to circ intervention (which would likely require atherectomy, making procedure higher risk).
-no recent CP
-LDL 57. continue lipitor
-plan for DC today. OP cardiac follow up arranged
-d/w nursing
HPI 08/10/2024:
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
CP. Patient was recently treated at [facility] in June 2024 for chest discomfort and was found to have newly reduced ejection fraction with EF of 38% which prompted her to undergo cardiac catheterization which demonstrated heavily
calcified multivessel coronary artery disease. Patient was deemed not a candidate for bypass surgery due to poor targets and no clear culprit lesion for PCI. Medical management was recommended. Patient was seen in outpatient cardiology office
07/20/2024 with ongoing anginal symptoms and was placed on isosorbide. Due to ongoing anginal symptoms patient's Coreg was doubled to 6.25 mg twice a day on 07/22/2024. She was also noted to have ASTER on outpatient laboratory studies and Lasix was
reduced to 20 mg Tuesday, Tuesday, Tuesday. Despite changes patient continued to have ongoing anginal symptoms and plan was to start Ranexa 500 mg twice a day (first dose 08/08). Patient reports she continues to have chest discomfort which
generally is relieved with 1 sublingual nitroglycerin for which she has been taking on a daily basis. She had 2-3 episodes of chest pain yesterday relieved with nitroglycerin. However in early hours of this morning she was awoken with chest
discomfort and took 3 nitroglycerin without significant improvement prompting her to come to emergency department. EKG in emergency department showed sinus rhythm with ST-T wave abnormality in inferior and anterior lateral segments. Initial
troponin noted to be elevated at 0.055 with 2nd trop 0.461. Chest x-ray showed no active disease. proBNP 841. Patient was given additional nitroglycerin as well as morphine and oxycodone and placed on heparin drip with improvement of chest
discomfort. Patient on heparin drip and is currently chest pain-free.
Progress Note - Signals Intelligence Analyst
Subjective
Date of Service: August 15, 2024
no CP yesterday with ambulation or overnight. reports feeling tired
Objective
Labs:
08/15/24 04:16
08/15/24 04:16
Labs
Hgb 12.9 g/dL (12.0-16.0) 08/15/24 04:16
Hct 39.0 % (37.0-47.0) 08/15/24 04:16
Plt Count 251 10^3/uL (130-400) 08/15/24 04:16
APTT 87.6 Sec (23.4-35.0) H 08/13/24 02:57
Sodium 137 mmol/L (135-145) 08/15/24 04:16
Potassium 4.7 mmol/L (3.5-5.1) 08/15/24 04:16
BUN 26 mg/dl (7-17) H 08/15/24 04:16
Creatinine 1.0 mg/dL (0.6-1.0) 08/15/24 04:16
Glucose 101 mg/dl (70-99) H 08/15/24 04:16
Vital Signs and I&O:
Vital Signs
Temp Pulse Resp BP Pulse Ox
98.2 F 49 20 144/67 98
08/15/24 07:49 08/15/24 08:54 08/15/24 07:49 08/15/24 04:01 08/15/24 07:49
Vital Signs
Temp Pulse Resp BP Pulse Ox
98.2 F 49 20 144/67 98
08/15/24 07:49 08/15/24 08:54 08/15/24 07:49 08/15/24 04:01 08/15/24 07:49
Intake & Output
08/13/24 08/14/24 08/15/24 08/16/24
07:59 07:59 07:59 07:59
Intake Total 240 / 240 480 / 480
Output Total 400 / 400
Balance -400 / -160 240 / 240 480 / 480
Physical Exam
Physical Exam
GEN: No distress, awake, alert, resting comfortably
HEENT: supple, anicteric, mmm, eomi
LUNGS: CTA B/L, no wheezes
CV: Reg and claribel, S1/S2, no murmur
ABD: soft, BS+, NT/ND
EXT: No cyanosis, clubbing, edema
NEURO: Gross non-focal
SKIN: Warm, pink, dry. No rash
[2024-08-15] MEDS: ZESTRIL 2.5 MG PO (10:48)
[2024-08-15] MEDS: LASIX 20 MG PO (10:48)
--- NOTE | 2024-08-15 11:28 | CM ---
Reviewed chart. Met with Mrs. Delatorre to review discharge plans. She states she is feeling better and maybe able to go home. We reviewed VNA Services and she is declining VNA Services at this time. Prior to admission she resides alone in a one
story home with three steps to enter. Prior to admission she ambulates with a single point cane. She has a single point cane and walker at home. She has a prescription plan and uses [facility]. Physical and Occupational therapy evaluations
pending. Medical work-up in progress. The discharge plan is to return home when medically stable.
--- NOTE | 2024-08-15 12:40 | PTCARENOTE ---
Pt walked in halls with PT, no chest pain, jordy well.
--- NOTE | 2024-08-15 12:52 | PTOTSP ---
pt currently demonstrates ability to complete simple ADLs, functional transfers, ambulation with supervision to no assistance. no acute OT needs identified, will sign off.
--- NOTE | 2024-08-15 14:26 | W.DCSUMMARY ---
Discharge Summary
Discharge Data
Date of Admission: 08/10/24
Date of Discharge: 08/15/24
-
Pending Results: No
Discharge Plan
-
Patient Disposition: Home (Routine Discharge)
Discharge Diagnosis/Procedures: NSTEMI
Multi-vessel Coronary Artery Disease
Myoclonic jerks secondary to Ranexa
B12 deficiency
Mild Acute Kidney Injury vs Chronic Kidney Disease Stage III
Chronic Heart Failure with Reduced Ejection Fraction
Hypothyroidism
Hypertension
Hyperlipidemia
Chronic Pain
Prediabetes
Condition: Fair
Diet: Low Cholesterol and 2 Gram Sodium
Activity: As tolerated
Driving Restrictions: No driving
Bathing Restrictions: None
Blood Work: Please repeat CBC BMP and Magnesium Level with primary care provider in 1 week of discharge.
Repeat Thyroid Function Test and B12 Level with primary care provider in 1 month of discharge.
Specialty Instructions: Weigh Daily- Call MD for wt gain/loss 3 lbs overnight/5 lbs in 1 week
Activity Restrictions/Additional Instructions:
Please follow up with primary care provider in 1 week of discharge and keep your appointment with Cardiology.
Plavix has been prescribed for treatment NSTEMI coronary artery disease.
Imdur has been prescribed for angina
Lidocaine patch prescribed for low back pain.
Coreg has been switched to metoprolol to allow blood pressure room for increase in Imdur as above.
Similarly home lisinopril has been reduced to 2.5 mg daily from 5 mg- also to allow room in blood pressure as above.
B12 supplement has been prescribed for severe deficiency.
Please take medications as prescribed/recommended and follow up with primary care provider and/or other healthcare provider involved in your care for refills and/or further adjustment to your medication regimen as necessary.
Instructions: *[facility] Heart Failure Instructions
Referrals:
Eva Jeffrey PA-C [Specified Professional Personl] - 08/21/24 9:40 am (You have a cardiology follow up appointment at the [facility] with Dr. Fraser's physician loan officer assistant, Eva. Please call with questions. )
Ivory White PA-C [Family Provider] - in one week
Prescriptions:
New
lidocaine 4 % Adhesive Patch,Medicated
1 patch topical DAILY Qty: 10 0RF
Rx Instructions:
Low Back Pain
isosorbide mononitrate 60 mg Tablet Extended Release 24 Hr
60 mg PO DAILY 30 Days Qty: 30 0RF
cyanocobalamin (vitamin B-12) 1,000 mcg Tablet
2,000 mcg PO DAILY 30 Days Qty: 60 0RF
clopidogrel 75 mg Tablet
75 mg PO DAILY 30 Days Qty: 30 0RF
metoprolol succinate 25 mg Tablet Extended Release 24 Hr
25 mg PO HS 30 Days Qty: 30 0RF
lisinopril 2.5 mg Tablet
2.5 mg PO DAILY 30 Days Qty: 30 0RF
Continued
cholecalciferol (vitamin D3) 2,000 UNIT tablet
2,000 unit PO DAILY
ondansetron HCl 4 mg Tablet
4 mg PO Q6HPRN PRN (Reason: nausea)
acetaminophen [Tylenol Extra Strength] 500 mg Tablet
1,000 mg PO Q6HPRN PRN (Reason: mild pain)
levothyroxine 88 mcg Tablet
88 mcg PO DAILY
duloxetine 60 mg Capsule,Delayed Release(Dr/Ec)
60 mg PO HS
pantoprazole [Protonix] 20 MG tablet,delayed release (DR/EC)
40 mg PO DAILYPRN PRN (Reason: gerd)
atorvastatin 40 mg Tablet
40 mg PO QPM Qty: 30 0RF
aspirin 81 mg Tablet,Chewable
81 mg PO DAILY Qty: 100 0RF
furosemide 20 mg Tablet
20 mg PO DAILY Qty: 30 0RF
Changed
oxycodone 10 MG tablet
10 mg PO Q6HPRN PRN (Reason: severe pain) Qty: 0 0RF
Patient Comments:
06/27/24: last filled 06/26/24 for 150 tablets over 30 days
Discontinued
carvedilol 3.125 mg Tablet
3.125 mg PO BID Qty: 60 0RF
lisinopril 5 mg Tablet
5 mg PO DAILY Qty: 30 0RF
Discharge Orders:
Discharge Patient (As Directed); Ordered 08/15/24
Ordered By: Lokesh Byrnes
Care Plan Goals
Care Plan Goals:
Problem: Readiness for enhanced knowledge related to diagnosis and treatment plan
Goal: Understand your diagnosis and treatment plan needs, including medications if applicable.
Instructions: Know your diagnosis, underlying causes and treatment plan options, including medications if applicable. Consult with your health care team to learn about your diagnosis and treatment plan, including medications if applicable.
Discharge Date and Time
Print Language: LATVIAN
== END 2024-08-15 16:53 | disposition home or self-care (01) | DRG 281 ==
LOC: IVU 04:49
PROVIDERS: Clinical Nurse Specialist Family Health; Hospitalist; Physician Assistant Medical; ADMITTING PHYSICIAN Internal Medicine; ATTENDING PHYSICIAN Internal Medicine; EMERGENCY PHYSICIAN Student in an Organized Health Care Education/Training Program; FAMILY PHYSICIAN Physician Assistant Medical; OTHER PHYSICIAN Internal Medicine Cardiovascular Disease
DX: I21.4 Non-ST elevation (NSTEMI) myocardial infarction (principal); F11.20 Opioid dependence, uncomplicated; I50.22 Chronic systolic (congestive) heart failure; N17.9 Acute kidney failure, unspecified; I13.0 Hypertensive heart and chronic kidney disease with heart failure and stage 1 through stage 4 chronic kidney disease, or unspecified chronic kidney disease; Z66 Do not resuscitate; I25.10 Atherosclerotic heart disease of native coronary artery without angina pectoris; E78.00 Pure hypercholesterolemia, unspecified; D51.9 Vitamin B12 deficiency anemia, unspecified; E03.9 Hypothyroidism, unspecified; E11.22 Type 2 diabetes mellitus with diabetic chronic kidney disease; I25.5 Ischemic cardiomyopathy; G25.3 Myoclonus; G89.29 Other chronic pain; T46.995A Adverse effect of other agents primarily affecting the cardiovascular system, initial encounter; G47.30 Sleep apnea, unspecified; N18.30 Chronic kidney disease, stage 3 unspecified; K21.9 Gastro-esophageal reflux disease without esophagitis; Z88.2 Allergy status to sulfonamides; Z88.1 Allergy status to other antibiotic agents; Z88.0 Allergy status to penicillin; Z79.899 Other long term (current) drug therapy; Z79.890 Hormone replacement therapy; Z79.82 Long term (current) use of aspirin
CPT/HCPCS: 71046; 80048; 80053; 80061; 82607; 83735; 83880; 84100; 84439; 84443; 84484; 85025; 85027; 85652; 85730; 93005; 94760; 96365; 96366; 96375; 97162; 97166; 99285

== ENCOUNTER 2024-08-31 06:25 | Inpatient (IN) | payer MEDICARE, OTHER, SELFPAY ==
[2024-08-31] VITALS (48 sets, daily range): BP systolic 81–152; BP diastolic 44–100; BMI 26.6; BMI 23.7
[2024-08-31 04:14] LABS: % Basophils 0.7 % (0-2); % Eosinophils 0.4 % (0-6); % Immature Granulocytes 0.8 % (0-0.5); % Lymphocytes 11.6 % (20.5-51.1); % Monocytes 10.4 % (1.7-9.3); % Neutrophils 76.1 % (42.2-75.2); Absolute Basophils 0.1 10^3/uL (0-0.2); Absolute Immature Granulocytes 0.1 10^3/uL (0-0.05); Absolute Lymphocytes 0.8 10^3/uL (1.2-3.4); Absolute Monocytes 0.8 10^3/uL (0.1-0.6); Absolute Neutrophils 5.5 10^3/uL (1.4-6.5); Hematocrit 36.6 % (37.0-47.0); Hemoglobin 12.4 g/dL (12.0-16.0); Mean Corp Hgb Conc. 33.9 g/dL (33.0-37.0); Mean Corpuscular Hgb 32.5 pg (27.0-31.0); Mean Corpuscular Volume 96.1 fL (81.0-99.0); Mean Platelet Volume 9.7 fL (7.4-10.4); Nucleated Red Blood Cells % 0 %; Platelet Count 198 10^3/uL (130-400); Red Blood Cell Count 3.81 10^6/uL (4.20-5.40); Red Cell Dist. Width 13.3 % (11.5-14.5); White Blood Cell Count 7.2 10^3/uL (4.8-10.8)
[2024-08-31 04:26] LABS: ALT (SGPT) 25 U/L (0-35); AST (SGOT) 25 U/L (14-36); Albumin 3.9 g/dl (3.5-5.0); Alkaline Phosphatase 92 U/L (38-126); Blood Urea Nitrogen 36 mg/dl (7-17); Calcium 8.5 mg/dl (8.4-10.2); Carbon Dioxide 23 mmol/L (22-30); Chloride 105 mmol/L (98-107); Estimated Creatinine Clearance 26 ml/min; Glucose 122 mg/dl (70-99); Potassium 3.3 mmol/L (3.5-5.1); Sodium 141 mmol/L (135-145); Total Bilirubin 0.6 mg/dl (0.2-1.3); Total Protein 6.3 g/dl (6.3-8.2); eGFR 43.54
[2024-08-31 04:28] LABS: INR 1.02; PT 13.9 Sec (11.4-14.6)
[2024-08-31 04:29] LABS: APTT 30.8 Sec (23.4-35.0)
[2024-08-31] MEDS: NITROGLYCERIN PREMIX 250 IV (04:30)
--- NOTE | 2024-08-31 04:39 | ED.GENMED ---
History of Present Illness
<ST JorgePA - Last Filed: 09/01/24 22:36>
General
Chief Complaint: Chest Pain
Time Seen by Provider: 08/31/24 03:53
History of Present Illness
History of Present Illness:
Pt is a 89 yo F who presents to the emergency department with chest pain that radiated to her right arm. Pt also has shortness of breath.
<Xavier Ceron DO - Last Filed: 08/31/24 06:00>
General
Source: patient and family
Nursing documentation reviewed up to this point in time: agreed with
History of Present Illness
History of Present Illness:
89-year-old female brought in by private vehicle after complaining of acute on chronic substernal chest pain radiating into her right jaw and arm. Patient states that she also had some shortness of breath. Patient states that she took 3 sublingual
nitros over the course of the day with progressive relief of the pain. She became concerned because she took her third nitroglycerin and the pain still did not buddy. She came into the emergency department for further evaluation. Upon arrival,
her pain was 8 out of 10. After nitroglycerin drip, her pain dropped to 6 out of 10. Denies fever, chills, nausea or vomiting.
Past History
<Xavier Ceron DO - Last Filed: 08/31/24 06:00>
Past History
ED Past Medical History: CAD, HTN, Hypercholesterolemia, Other (arthritis, Back pain, Sleep apnea, DVT right arm, Anemia, Ovarian cyst) and Other (Chronic low back pain, narcotic dependent)
ED Past Surgical History: Cholecystectomy, Gynecological (Hysterectomy), Orthopedic (Spinal stimulator, Laminectomy), Urological (Bladder sling) and Other (Cataracts, Moh's procedure)
Social History
Tobacco: Non-smoker
Alcohol: None
Personal:
Living: alone
Employment: Retired
Family History
Family History: Other (Noncontributory)
Phy Exam
<Xavier Ceron DO - Last Filed: 08/31/24 06:00>
General Physical Exam
General Presentation: moderate distress
General age: appears stated age
General Skin: diaphoretic
General Habitus: normal
Cardiovascular Exam
Cardiovascular Exam: regular rate/rhythm and no edema
Pulmonary Exam
Pulmonary Exam: lungs clear and no respiratory distress
Gastrointestinal Exam
Gastrointestinal Exam: normal bowel sounds
Neurological Exam
Neurological Exam: alert, oriented x3 and other (Hard of hearing)
Musculoskeletal Exam
Musculoskeletal Exam: full ROM
Skin Exam
Skin Exam: diaphoresis
Psychiatric Exam
Psychiatric Exam: normal mood/affect and anxious
Scores
<CAT Patel - Last Filed: 09/01/24 22:36>
Heart Score for Chest Pain Patients
STEMI patient?: No
History: Highly Suspicious
ECG: Nonspecific Repolarization
Age: >/= 65 years
Risk Factors: >/= 3 Risk Factors or History of CAD
Troponin: </= Normal Limit
Heart Score for Chest Pain Patients: 7
Heart Score Risk: 72.7 % MACE over next 6 weeks
Course
<CAT Patel - Last Filed: 09/01/24 22:36>
Orders/Labs/Results
Orders:
Orders
08/31/24 03:38
Electrocardiogram (*1) Urgent
Reason for Study: Chest Pain
08/31/24 03:39
EKG- Treatment ONCE
08/31/24 03:47
EKG [Electrocardiogram (*1)] Urgent
Reason for Study: Chest Pain
EKG- Treatment ONCE
08/31/24 04:05
Complete Blood Count/With Diff Urgent
Comprehensive Metabolic Panel Urgent
Magnesium Urgent
PTT Urgent
Prothrombin Time Urgent
TSH Urgent
Troponin I Q3H
08/31/24 04:[address] Non Medication Order As Directed
Physician Order: PTT 6 hours after initial start of Heparin infusion
Above order entered?: Yes
08/31/24 04:15
Nitroglycerin 100 mg/250 ml [Nitroglycerin Premix] 100 mg in 250 ml IV PER PROTOCOL
Initial dose in mcg/min, then titrate:: 2
Titrate to keep:: Chest Pain Free
Titrate by mcg/min:: 5 mcg/min, may increase by 10 mcg/min if dose > 20 mcg/min
Frequency of titrations (minutes):: every 3-5 minutes
Maximum dose in mcg/min:: 200
Begin to taper infusion when:: Remained at goal for 2hrs
Taper by mcg/min:: 5 mcg/min
Frequency of taper (minutes) if patient maintains goal:: 30
Taper to off?: Yes
If infusion off & no longer maintaining goal:: Contact Provider
08/31/24 04:30
Heparin 96816 Units/250 ml 25,000 units in 250 ml IV PER PROTOCOL
Weight to be used for heparin protocol in kilograms (kg):: 60.8
Protocol:: Cardiac Tx/Acute Coronary
PTT Goal Range to be used:: PTT 73 to 111 seconds
Order type:: Initial
INITIAL Infusion Dose (UNITS/KG/hr) & then follow protocol:: 12 units/kg/hr
Infusion Dose in UNITS/hr & then follow protocol (UNITS/hr):: 750
INFUSION RATE in mL/hr & then follow protocol (mL/hr):: 7.5
PTT less than or equal to 64 seconds:: Increase rate by 200 units/hr (+ 2 mL/hr)
PTT 64.1 to 72.9 seconds:: Increase rate by 100 units/hr (+ 1 mL/hr)
PTT 73 to 111 seconds:: Target Range. No change in rate.
PTT 111.1 to 130.9 seconds:: Decrease rate by 100 units/hr (- 1 mL/hr)
PTT 131 to 199.9 seconds:: HOLD for 1 hr. Then decrease rate by 200 units/hr (- 2 mL/hr)
PTT greater than or equal to 200 seconds:: HOLD for 2 hrs & Notify Provider. Then decrease by 200 units/hr (-
2 mL/hr)
Lab follow-up:: Each change, PTT q6h until 2 consecutive are therapeutic. Then PTT
daily.
08/31/24 04:42
Heparin 4,300 units IV NOW STA
08/31/24 04:52
Electrocardiogram (*1) Urgent
Reason for Study: Chest Pain
EKG- Treatment ONCE
08/31/24 05:11
Heparin 1000 Units/500 ml [Heparin] 1,000 units in 500 ml .ROUTE .STK-MED
Heparin Sodium,Porcine/Ns/Pf [Heparin 2000 Units/1000 ml] 2,000 unit in 1,000 ml .ROUTE .STK-MED
Lidocaine HCl/Pf [Xylocaine-Mpf 1% Vial] 50 mg .ROUTE .STK-MED ONE
Nitroglycerin [Tridil] 1,500 mcg .ROUTE .STK-MED ONE
Verapamil Injectable [Isoptin/Verapamil Injection] 5 mg .ROUTE .STK-MED ONE
08/31/24 05:12
Fentanyl Citrate/Pf [Sublimaze] 100 mcg .ROUTE .STK-MED ONE
Heparin 10,000 units .ROUTE .STK-MED ONE
Midazolam HCl [Versed] 2 mg .ROUTE .STK-MED ONE
08/31/24 05:57
Admit/Transfer Patient As Directed
Co-Sign Provider:
Level of Care: Inpatient admission
Assign to:: IVU
Physician / Group: Dani
Diagnosis: ACS
Reason for Hospitalization: ACS
Expected length of stay greater than two midnights?: Yes
ELOS- Estimated Length of Stay in days: 3
I certify the patient meets the requirements for IP care: Yes
PRN Pain Medication Management As Directed
May give lesser potent ordered pain med per pt: Yes
preference::
Protocol:: Medication orders for pain may be administered in a
manner that supports deferring to patient preference
when the pt is:
- Requesting an ordered lesser potent pain medication.
Least to most potent pain medications are defined
as: acetaminophen < NSAID < tramadol < opioids
(morphine, oxycodone, hydromorphone).
- Requesting a lesser dose of the same medication IF
ORDERED.
- Requesting a less intrusive route of administration
if both routes are prescribed by the provider (PO <
IV).
08/31/24 05:59
Code Status As Directed
Resuscitation Status: Do not resuscitate
Reached after discussion with pt or family/Healthcare POA: Yes
08/31/24 Breakfast
NPO
Allow oral meds: Yes
Allow clear liquids: Sips of Clears
DNR Bracelet Application ONCE
08/31/24 06:45
Troponin I Q3H
08/31/24 07:45
Acetaminophen [Tylenol] 650 mg PO Q4HPRN PRN
Morphine Sulfate 2 mg IV Q4HPRN PRN
Nitroglycerin 100 mg/250 ml [Nitroglycerin Premix] 100 mg in 250 ml IV PER PROTOCOL
Currently infusing. Continue current dose and titrate:: Yes
Titrate to keep:: Chest Pain Free
Titrate by mcg/min:: 5 mcg/min, may increase by 10 mcg/min if dose > 20 mcg/min
Frequency of titrations (minutes):: every 3-5 minutes
Maximum dose in mcg/min:: 200
Begin to taper infusion when:: Remained at goal for 2hrs
Taper by mcg/min:: 5 mcg/min
Frequency of taper (minutes) if patient maintains goal:: 30
Taper to off?: Yes
If infusion off & no longer maintaining goal:: Contact Provider
Nitroglycerin Sublingual [Nitrostat (Sublingual)] 0.4 mg SL [id number] PRN
Ondansetron Injectable [Zofran] 4 mg IV Q6HPRN PRN
08/31/24 07:45
CARDIOLOGY CONSULT Routine
Consulting Provider: Kamari Art
Was physician already notified: Yes
Reason for consult: ACS
Heparin Protocol- PTT Orders As Directed
PTT per Heparin protocol: -Obtain CBC and baseline PTT - if not already collected.
-Obtain PTT 6 hours from start of infusion. Then, every 6 hours until 2 consecutive
PTT's are therapeutic. Then, PTT Daily.
-With each rate change, obtain PTT every 6 hours until 2 consecutive PTT's are
therapeutic. Then, PTT Daily.
Activity As Directed
Activity Level: Ambulate
With Assistance
EKG with chest pain [ECG as needed] As Directed
ECG as needed for:: Chest Pain
I/O [Intake/ Output] As Directed
Frequency: Per unit guidelines
Notify MD As Directed
Notify physician if: PTT is greater than or equal to 200.
Vital Signs As Directed
Frequency: Per unit guidelines
Weight As Directed
Frequency: Daily
Oxygen Therapy [O2 Therapy] [RESP] Routine
Titrate/Wean O2 to maintain O2 sat greater than (%): 94
08/31/24 08:00
Aspirin Chewable [Low Strength Aspirin] 81 mg PO DAILY
Clopidogrel Bisulfate [Plavix] 75 mg PO DAILY
Furosemide [Lasix] 20 mg PO DAILY
Levothyroxine [Synthroid] 88 mcg PO DAILY@0600
Lisinopril [Zestril] 2.5 mg PO DAILY
Pantoprazole [Protonix] 40 mg PO DAILY
08/31/24 18:00
Atorvastatin [Lipitor] 40 mg PO QPM
08/31/24 22:00
Duloxetine Delayed Release [Cymbalta Delayed Release] 60 mg PO HS
Metoprolol Xl [Toprol Xl] 25 mg PO HS
09/01/24 06:00
EKG [Electrocardiogram (*1)] IN AM
Reason for Study: Chest Pain
Abnormal Lab Results
08/31/24
04:05
RBC 3.81 L 10^6/uL
(4.20-5.40)
Hct 36.6 L %
(37.0-47.0)
MCH 32.5 H pg
(27.0-31.0)
Abs Immat Gran (auto) 0.1 H 10^3/uL
(0-0.05)
Absolute Lymphs (auto) 0.8 L 10^3/uL
(1.2-3.4)
Absolute Monos (auto) 0.8 H 10^3/uL
(0.1-0.6)
Immature Gran % 0.8 H %
(0-0.5)
Neutrophils % 76.1 H %
(42.2-75.2)
Lymphocytes % 11.6 L %
(20.5-51.1)
Monocytes % 10.4 H %
(1.7-9.3)
Potassium 3.3 L mmol/L
(3.5-5.1)
BUN 36 H mg/dl
(7-17)
Creatinine 1.2 H mg/dL
(0.6-1.0)
Glucose 122 H mg/dl
(70-99)
Magnesium 1.0 L mg/dl
(1.6-2.3)
08/31/24 04:05
08/31/24 04:05
Vital Signs
Initial and Last Documented VS:
Initial Vital Signs
Temp Pulse Resp BP Pulse Ox
97.9 F 84 22 152/76 97
08/31/24 03:52 08/31/24 03:52 08/31/24 03:52 08/31/24 03:52 08/31/24 03:52
Last Documented Vital Signs
Temp Pulse Resp BP Pulse Ox
98.4 F 81 20 98/51 96
09/01/24 22:22 09/01/24 22:31 09/01/24 22:22 09/01/24 22:31 09/01/24 22:22
<Xavier Ceron, DO - Last Filed: 08/31/24 06:00>
Orders/Labs/Results
Orders:
Orders
08/31/24 03:38
Electrocardiogram (*1) Urgent
Reason for Study: Chest Pain
08/31/24 03:39
EKG- Treatment ONCE
08/31/24 03:47
EKG [Electrocardiogram (*1)] Urgent
Reason for Study: Chest Pain
EKG- Treatment ONCE
08/31/24 04:05
Complete Blood Count/With Diff Urgent
Comprehensive Metabolic Panel Urgent
Magnesium Urgent
PTT Urgent
Prothrombin Time Urgent
TSH Urgent
Troponin I Q3H
08/31/24 04:[address] Non Medication Order As Directed
Physician Order: PTT 6 hours after initial start of Heparin infusion
Above order entered?: Yes
08/31/24 04:15
Nitroglycerin 100 mg/250 ml [Nitroglycerin Premix] 100 mg in 250 ml IV PER PROTOCOL
Initial dose in mcg/min, then titrate:: 2
Titrate to keep:: Chest Pain Free
Titrate by mcg/min:: 5 mcg/min, may increase by 10 mcg/min if dose > 20 mcg/min
Frequency of titrations (minutes):: every 3-5 minutes
Maximum dose in mcg/min:: 200
Begin to taper infusion when:: Remained at goal for 2hrs
Taper by mcg/min:: 5 mcg/min
Frequency of taper (minutes) if patient maintains goal:: 30
Taper to off?: Yes
If infusion off & no longer maintaining goal:: Contact Provider
08/31/24 04:30
Heparin 93571 Units/250 ml 25,000 units in 250 ml IV PER PROTOCOL
Weight to be used for heparin protocol in kilograms (kg):: 60.8
Protocol:: Cardiac Tx/Acute Coronary
PTT Goal Range to be used:: PTT 73 to 111 seconds
Order type:: Initial
INITIAL Infusion Dose (UNITS/KG/hr) & then follow protocol:: 12 units/kg/hr
Infusion Dose in UNITS/hr & then follow protocol (UNITS/hr):: 750
INFUSION RATE in mL/hr & then follow protocol (mL/hr):: 7.5
PTT less than or equal to 64 seconds:: Increase rate by 200 units/hr (+ 2 mL/hr)
PTT 64.1 to 72.9 seconds:: Increase rate by 100 units/hr (+ 1 mL/hr)
PTT 73 to 111 seconds:: Target Range. No change in rate.
PTT 111.1 to 130.9 seconds:: Decrease rate by 100 units/hr (- 1 mL/hr)
PTT 131 to 199.9 seconds:: HOLD for 1 hr. Then decrease rate by 200 units/hr (- 2 mL/hr)
PTT greater than or equal to 200 seconds:: HOLD for 2 hrs & Notify Provider. Then decrease by 200 units/hr (-
2 mL/hr)
Lab follow-up:: Each change, PTT q6h until 2 consecutive are therapeutic. Then PTT
daily.
08/31/24 04:42
Heparin 4,300 units IV NOW STA
08/31/24 04:52
Electrocardiogram (*1) Urgent
Reason for Study: Chest Pain
EKG- Treatment ONCE
08/31/24 05:11
Heparin 1000 Units/500 ml [Heparin] 1,000 units in 500 ml .ROUTE .STK-MED
Heparin Sodium,Porcine/Ns/Pf [Heparin 2000 Units/1000 ml] 2,000 unit in 1,000 ml .ROUTE .STK-MED
Lidocaine HCl/Pf [Xylocaine-Mpf 1% Vial] 50 mg .ROUTE .STK-MED ONE
Nitroglycerin [Tridil] 1,500 mcg .ROUTE .STK-MED ONE
Verapamil Injectable [Isoptin/Verapamil Injection] 5 mg .ROUTE .STK-MED ONE
08/31/24 05:12
Fentanyl Citrate/Pf [Sublimaze] 100 mcg .ROUTE .STK-MED ONE
Heparin 10,000 units .ROUTE .STK-MED ONE
Midazolam HCl [Versed] 2 mg .ROUTE .STK-MED ONE
08/31/24 05:57
Admit/Transfer Patient As Directed
Co-Sign Provider:
Level of Care: Inpatient admission
Assign to:: IVU
Physician / Group: Dani
Diagnosis: ACS
Reason for Hospitalization: ACS
Expected length of stay greater than two midnights?: Yes
ELOS- Estimated Length of Stay in days: 3
I certify the patient meets the requirements for IP care: Yes
PRN Pain Medication Management As Directed
May give lesser potent ordered pain med per pt: Yes
preference::
Protocol:: Medication orders for pain may be administered in a
manner that supports deferring to patient preference
when the pt is:
- Requesting an ordered lesser potent pain medication.
Least to most potent pain medications are defined
as: acetaminophen < NSAID < tramadol < opioids
(morphine, oxycodone, hydromorphone).
- Requesting a lesser dose of the same medication IF
ORDERED.
- Requesting a less intrusive route of administration
if both routes are prescribed by the provider (PO <
IV).
08/31/24 05:59
Code Status As Directed
Resuscitation Status: Do not resuscitate
Reached after discussion with pt or family/Healthcare POA: Yes
08/31/24 Breakfast
NPO
Allow oral meds: Yes
Allow clear liquids: Sips of Clears
DNR Bracelet Application ONCE
08/31/24 06:45
Troponin I Q3H
08/31/24 07:45
Acetaminophen [Tylenol] 650 mg PO Q4HPRN PRN
Morphine Sulfate 2 mg IV Q4HPRN PRN
Nitroglycerin 100 mg/250 ml [Nitroglycerin Premix] 100 mg in 250 ml IV PER PROTOCOL
Currently infusing. Continue current dose and titrate:: Yes
Titrate to keep:: Chest Pain Free
Titrate by mcg/min:: 5 mcg/min, may increase by 10 mcg/min if dose > 20 mcg/min
Frequency of titrations (minutes):: every 3-5 minutes
Maximum dose in mcg/min:: 200
Begin to taper infusion when:: Remained at goal for 2hrs
Taper by mcg/min:: 5 mcg/min
Frequency of taper (minutes) if patient maintains goal:: 30
Taper to off?: Yes
If infusion off & no longer maintaining goal:: Contact Provider
Nitroglycerin Sublingual [Nitrostat (Sublingual)] 0.4 mg SL [id number] PRN
Ondansetron Injectable [Zofran] 4 mg IV Q6HPRN PRN
08/31/24 07:45
CARDIOLOGY CONSULT Routine
Consulting Provider: Kamari Art
Was physician already notified: Yes
Reason for consult: ACS
Heparin Protocol- PTT Orders As Directed
PTT per Heparin protocol: -Obtain CBC and baseline PTT - if not already collected.
-Obtain PTT 6 hours from start of infusion. Then, every 6 hours until 2 consecutive
PTT's are therapeutic. Then, PTT Daily.
-With each rate change, obtain PTT every 6 hours until 2 consecutive PTT's are
therapeutic. Then, PTT Daily.
Activity As Directed
Activity Level: Ambulate
With Assistance
EKG with chest pain [ECG as needed] As Directed
ECG as needed for:: Chest Pain
I/O [Intake/ Output] As Directed
Frequency: Per unit guidelines
Notify MD As Directed
Notify physician if: PTT is greater than or equal to 200.
Vital Signs As Directed
Frequency: Per unit guidelines
Weight As Directed
Frequency: Daily
Oxygen Therapy [O2 Therapy] [RESP] Routine
Titrate/Wean O2 to maintain O2 sat greater than (%): 94
08/31/24 08:00
Aspirin Chewable [Low Strength Aspirin] 81 mg PO DAILY
Clopidogrel Bisulfate [Plavix] 75 mg PO DAILY
Furosemide [Lasix] 20 mg PO DAILY
Levothyroxine [Synthroid] 88 mcg PO DAILY@0600
Lisinopril [Zestril] 2.5 mg PO DAILY
Pantoprazole [Protonix] 40 mg PO DAILY
08/31/24 18:00
Atorvastatin [Lipitor] 40 mg PO QPM
08/31/24 22:00
Duloxetine Delayed Release [Cymbalta Delayed Release] 60 mg PO HS
Metoprolol Xl [Toprol Xl] 25 mg PO HS
09/01/24 06:00
EKG [Electrocardiogram (*1)] IN AM
Reason for Study: Chest Pain
Abnormal Lab Results
08/31/24
04:05
RBC 3.81 L 10^6/uL
(4.20-5.40)
Hct 36.6 L %
(37.0-47.0)
MCH 32.5 H pg
(27.0-31.0)
Abs Immat Gran (auto) 0.1 H 10^3/uL
(0-0.05)
Absolute Lymphs (auto) 0.8 L 10^3/uL
(1.2-3.4)
Absolute Monos (auto) 0.8 H 10^3/uL
(0.1-0.6)
Immature Gran % 0.8 H %
(0-0.5)
Neutrophils % 76.1 H %
(42.2-75.2)
Lymphocytes % 11.6 L %
(20.5-51.1)
Monocytes % 10.4 H %
(1.7-9.3)
Potassium 3.3 L mmol/L
(3.5-5.1)
BUN 36 H mg/dl
(7-17)
Creatinine 1.2 H mg/dL
(0.6-1.0)
Glucose 122 H mg/dl
(70-99)
Magnesium 1.0 L mg/dl
(1.6-2.3)
08/31/24 04:05
08/31/24 04:05
Vital Signs
Initial and Last Documented VS:
Initial Vital Signs
Temp Pulse Resp BP Pulse Ox
97.9 F 84 22 152/76 97
08/31/24 03:52 08/31/24 03:52 08/31/24 03:52 08/31/24 03:52 08/31/24 03:52
Last Documented Vital Signs
Temp Pulse Resp BP Pulse Ox
98.4 F 81 20 98/51 96
09/01/24 22:22 09/01/24 22:31 09/01/24 22:22 09/01/24 22:31 09/01/24 22:22
Prabhalt;CAT Patel - Last Filed: 09/01/24 22:36>
*Critical Care Note
Total Time (30-74mins, 75-104mins- exclusive of procedures): Not Applicable
<Xavier Ceron, - Last Filed: 08/31/24 06:00>
Update Note
Update Note:
Spoke with cardiology, who is aware of this patient. He is a copy of the EKGs.
After discussion with Dr. Miguel Martinez, patient, and patient's family, patient wishes to go to the [facility].
08/31/2024 0456 AM: Family has been in direct contact with Dr. Martinez. They called him telling him that she is chest pain-free. He called me to tell me to talk to Dr. Art directly. I asked family to please come to me first before talking to the
specialists. Patient still has right shoulder pain. Her substernal chest pain has resolved.
ED Attending Note
<Xavier Ceron DO - Last Filed: 08/31/24 06:00>
-
Portions of this chart may have been created with voice recognition software.� Occasional wrong word or��sound alike� substitutions may have occurred due to the inherent limitations of voice recognition software.
Discharge Plan
Departure
Patient Disposition: Admit
Date of Disposition: 08/31/24
Time of Disposition: 05:57
Admit to: IVU
Presentation/result/management discussed w/ accepting MD/DO: Hospitalist
Patient with high blood pressure during this ER visit?: Yes
Condition: Fair
Discharge Problem:
Chest pain
Interventions
Interventions:
*General Assessment Last Done: 08/31/24 03:42
*Neglect/Abuse Screening Last Done: 08/31/24 03:54
ED- Fall Risk Assessment Last Done: 08/31/24 07:08
*Nursing Disposition Last Done: 08/31/24 07:08
ED- Cardiac Assessment Last Done: 08/31/24 03:54
Discharge Date and Time
Discharge Date/Time: 08/31/24 08:02
[2024-08-31] MEDS: HEPARIN 4300 UNITS IV (04:42)
[2024-08-31] MEDS: HEPARIN 25000 UNITS/250 ML IV (04:43)
[2024-08-31 04:49] LABS: Troponin I < 0.012 ng/ml
[2024-08-31 05:03] LABS: TSH 1.25 uIU/ml (0.47-4.68)
--- NOTE | 2024-08-31 05:31 | CON.CAR ---
Consultation
Consultation Request
Date/Time Consultation Requested: 08/31/2024
Date/Time Consultation Performed: 08/31/2024
Requesting Provider: Dr. Ceron and Dr. Kamari Martinez
Performing Provider: Dr. Kamari Art
Reason for Consultation: Chest pain
Medical History
-
Chief Complaint: Chest pain
History of Present Illness:
This is an 89 y/o female with known coronary artery disease who presented to [facility] for evaluation of symptoms which she states were 'off and on throughout the day'. She has been admitted to [facility] 06/2024 and on 08/10/2024
with chest pain and NSTEMI. She was referred for coronary angiography on 06/29/2024 and found to have diffuse 70% proximal LAD stenosis, a hazy 85% stenosis in the proximal / mid circumflex involving the origin of a small OM1 and diffuse disease in
the RCA with a heavily calcified 85% mid and 100% occlusion of the PDA which fills via collaterals. Given the high risk nature of hear coronary findings, she was treated medically and turned down for surgical intervention. She was discharged and
reported that she had been feeling well but now returns with severe chest discomfort. A STEMI alert was activated before the full nature of her coronary anatomy was known and with medical therapy she has become chest pain free.
Her initial troponin returned < 0.012 ng/dl.
PMH:
Multivessel heavily calcified coronary artery disease on cath 06/22/2024; deemed poor candidate for CABG and no clear culprit lesion for PCI
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
HTN
HLD
DM2
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
Hypothyroidism
History of multiple back surgeries with spinal stimulator in place
History of UTI
Past Medical History
Past Medical History: Other (in HPI)
Social History
Tobacco: Non-Smoker
Alcohol: None
Drug: None
Personal:
Living: Alone
Family History
Family History: CAD, Cancer and Other (CHF)
Allergies / Home Medications
Allergy/AdvReac Type Severity Reaction Status Date / Time
Cephalosporins Allergy Unknown Verified 08/31/24 03:39
clindamycin HCl Allergy Hives Verified 08/31/24 03:39
[From Cleocin]
clindamycin palmitate HCl Allergy Hives Verified 08/31/24 03:39
[From Cleocin]
clindamycin phosphate Allergy Hives Verified 08/31/24 03:39
[From Cleocin]
penicillin G Allergy Hives Verified 08/31/24 03:39
Penicillins Allergy Hives Verified 08/31/24 03:39
ranolazine [From Ranexa] Allergy Pharmacy Verified 08/31/24 03:39
to Review
Sulfa (Sulfonamide Allergy Swelling Verified 08/31/24 03:39
Antibiotics)
sulfasalazine Allergy Unknown Verified 08/31/24 03:39
�Medication �Instructions �Recorded �Confirmed �Type
cholecalciferol (vitamin D3) 50 2,000 unit PO DAILY Supplement 01/16/19 08/12/24 History
mcg (2,000 unit) tablet
acetaminophen 500 mg tablet 1,000 mg PO Q6HPRN PRN mild pain 06/27/24 08/10/24 History
(Tylenol Extra Strength)
duloxetine 60 mg capsule,delayed 60 mg PO HS Mental Health/Anxiety 06/27/24 08/12/24 History
release
levothyroxine 88 mcg tablet 88 mcg PO DAILY Thyroid 06/27/24 08/12/24 History
ondansetron HCl 4 mg tablet 4 mg PO Q6HPRN PRN nausea 06/27/24 08/12/24 History
pantoprazole 20 mg tablet,delayed 40 mg PO DAILYPRN PRN gerd 06/27/24 08/12/24 History
release (Protonix)
aspirin 81 mg chewable tablet 81 mg PO DAILY #100 tabs 06/30/24 08/10/24 Rx
atorvastatin 40 mg tablet 40 mg PO QPM #30 tabs 06/30/24 08/12/24 Rx
furosemide 20 mg tablet 20 mg PO DAILY #30 tabs 06/30/24 08/12/24 Rx
clopidogrel 75 mg tablet 75 mg PO DAILY 30 days #30 tabs 08/15/24 Rx
cyanocobalamin (vitamin B-12) 2,000 mcg (2 x 1,000 mcg) PO DAILY 08/15/24 Rx
1,000 mcg tablet 30 days #60 tabs
isosorbide mononitrate 60 mg 60 mg PO DAILY 30 days #30 tabs 08/15/24 Rx
tablet,extended release 24 hr
lidocaine 4 % topical patch 1 patch topical DAILY #10 ea 08/15/24 Rx
lisinopril 2.5 mg tablet 2.5 mg PO DAILY 30 days #30 tabs 08/15/24 Rx
metoprolol succinate 25 mg 25 mg PO HS 30 days #30 tabs 08/15/24 Rx
tablet,extended release 24 hr
oxycodone 10 mg tablet 10 mg PO Q6HPRN PRN severe pain #0 08/15/24 08/12/24 Rx
tabs
Review of Systems
-
History Source: Patient
All other systems: Negative unless noted
Cardiac: Chest Pain and Diaphoresis
Abdomen/GI: Nausea
Physical Exam
Vital Signs
Temp Pulse Resp BP Pulse Ox
97.9 F 77 17 116/69 94
08/31/24 03:52 08/31/24 05:30 08/31/24 05:30 08/31/24 05:30 08/31/24 05:30
Lab Results
08/31/24 04:05
08/31/24 04:05
Troponin I < 0.012 ng/ml 08/31/24 04:05
Physical Examination:
Gen: Awake, alert, oriented. NAD. Patient is engaging and appropriate
HEENT: Glasses worn, NC/AT, sclera anicteric
Lungs: Crackles at bases bilaterally. No wheezing Good air movement
CV: RRR with normal S1 and S2.
Abd: Soft, nontender, nondistended.
Ext: No edema
Impression / Plan
-
.
Primary Card: Dr. Manolo Fraser
IMPRESSION:
-Recurring chest pain with documented multivessel CADz
-Hypertension
-Mixed hyperlipidemia
-Diabetes
-Hypothyroid
-Multiple back surgeries with spinal stimulator
-Hx of UTI's
RECOMMENDATIONS:
-Will obtain serial troponin levels
-Consider repeat coronary angiography with an eye towards percutaneous intervention of the LCx
-Further management decisions based on hospital course
Data Reviewed
-
EKG: Tracing Personally Visualized and interpreted
Labs: Labs Reviewed by me
Old Records: Reviewed
Critical Care Time (in minutes): 60
Total Time Spent with Patient (in minutes): 20
--- NOTE | 2024-08-31 06:17 | HPS.HSE ---
Family Physician
-
Family Physician: Ivory White
Chief Complaint
-
Chest Pain
History of Present Illness
Patient is an 89y F with PMH significant for ASCVD, hypertension and hypothyroidism who presents to ED complaining of chest pain. Patient states that she woke around 2-3 AM today with substernal chest pain / pressure. She had associated
shortness of breath and diaphoresis. She felt nauseated by had no emesis. Patient took NTG SL tabs x 3 at home - each with only brief improvement in her symptoms. She presented to the ED for further evaluation and treatment.
In the ED patient received nitroglycerin and is currently pain free.
Patient has recent history of similar episodes / symptoms.
She was admitted here in June and again 08/10 - 08/15 for similar complaints.
Patient had cardiac cath in June showing multivessel disease with no clear targets for stenting / revascularization. She was deemed non-operative candidate in terms of CABG.
Her med regimen was adjusted for improvement in her anginal symptoms.
Patient states that she was completely pain free for about one week after her most recent hospital stay. Her symptoms have since started to recur.
Patient notes that symptoms typically occur at night / usually wake her from sleep.
She does admit to dyspnea with activity / exertion during the day.
No changes in her med regimen since her last admission.
Medical History
Past Medical History
Past Medical History: Reports Other
Additional Past Medical History:
ASCVD
Chronic HFrEF
Hypertension
Dyslipidemia
B12 Deficiency
Chronic Anemia
Hypothyroidism
Spinal Stenosis / DDD
Past Surgical History: Reports Other
Additional Past Surgical History:
Cholecystectomy
Hysterectomy
Lumbar Spinal Surgery
Social History
Tobacco: Non-smoker
Alcohol: None
Drug: None
Family History
Family History: Not pertinent
Allergies / Home Medications
Allergies reflects when Allergies were last updated in [facility].
Home Medications with original date entered in [facility]
Allergy/Medication List:
Allergies
Allergy/AdvReac Type Severity Reaction Status Date / Time
Cephalosporins Allergy Unknown Verified 08/31/24 03:39
clindamycin HCl Allergy Hives Verified 08/31/24 03:39
[From Cleocin]
clindamycin palmitate HCl Allergy Hives Verified 08/31/24 03:39
[From Cleocin]
clindamycin phosphate Allergy Hives Verified 08/31/24 03:39
[From Cleocin]
penicillin G Allergy Hives Verified 08/31/24 03:39
Penicillins Allergy Hives Verified 08/31/24 03:39
ranolazine [From Ranexa] Allergy Pharmacy Verified 08/31/24 03:39
to Review
Sulfa (Sulfonamide Allergy Swelling Verified 08/31/24 03:39
Antibiotics)
sulfasalazine Allergy Unknown Verified 08/31/24 03:39
Home Medications
cholecalciferol (vitamin D3) 50 mcg (2,000 unit) tablet 2,000 unit PO DAILY Supplement 01/16/19
acetaminophen 500 mg tablet (Tylenol Extra Strength) 1,000 mg PO Q6HPRN PRN mild pain 06/27/24
duloxetine 60 mg capsule,delayed release 60 mg PO HS Mental Health/Anxiety 06/27/24
levothyroxine 88 mcg tablet 88 mcg PO DAILY Thyroid 06/27/24
ondansetron HCl 4 mg tablet 4 mg PO Q6HPRN PRN nausea 06/27/24
pantoprazole 20 mg tablet,delayed release (Protonix) 40 mg PO DAILYPRN PRN gerd 06/27/24
aspirin 81 mg chewable tablet 81 mg PO DAILY #100 tabs 06/30/24
atorvastatin 40 mg tablet 40 mg PO QPM #30 tabs 06/30/24
furosemide 20 mg tablet 20 mg PO DAILY #30 tabs 06/30/24
clopidogrel 75 mg tablet 75 mg PO DAILY 30 days #30 tabs 08/15/24
cyanocobalamin (vitamin B-12) 1,000 mcg tablet 2,000 mcg (2 x 1,000 mcg) PO DAILY 30 days #60 tabs 08/15/24
isosorbide mononitrate 60 mg tablet,extended release 24 hr 60 mg PO DAILY 30 days #30 tabs 08/15/24
lisinopril 2.5 mg tablet 2.5 mg PO DAILY 30 days #30 tabs 08/15/24
metoprolol succinate 25 mg tablet,extended release 24 hr 25 mg PO HS 30 days #30 tabs 08/15/24
oxycodone 10 mg tablet 10 mg PO Q6HPRN PRN severe pain #0 tabs 08/15/24
Review of Systems
-
History Source: Patient
A 12 point ROS was completed and negative except as noted: Yes
Constitutional: Reports Fatigue; Denies Fever or Chills
EENT: Denies Sore Throat
Respiratory: Reports Trouble Breathing; Denies Cough
Cardiac: Reports Chest Pain and Diaphoresis; Denies Palpitations or Syncope
Abdomen/GI: Reports Nausea; Denies Abdominal Pain, Vomiting or Diarrhea
: Denies Dysuria or Frequency
Musculoskeletal: Denies Joint Pain or Edema
Neurological: Denies Dizzy or Headache
Psych: Denies Depression or Anxiety
Physical Exam
Vital Signs
Vital Signs
Temp Pulse Resp BP Pulse Ox
97.9 F 77 20 116/59 93
08/31/24 03:52 08/31/24 06:05 08/31/24 06:05 08/31/24 06:05 08/31/24 06:05
Physical Exam
General: Other (89y F in no acute distress.)
HEENT: Moist mucous membranes and PERRLA
Respiratory: Clear; No Wheezes, Rales or Rhonchi
Cardiac: S1/S2 and Regular Rhythm; No Murmur
GI: Soft, Non Tender, Non Distended and Normal Bowel Sounds
Musculoskeletal: No Clubbing, No Cyanosis and No Edema
Neuro: AO x 3
Laboratory Results
-
08/31/24 04:05
08/31/24 04:05
Laboratory Results
PT 13.9 Sec (11.4-14.6) 08/31/24 04:05
INR 1.02 08/31/24 04:05
APTT Cancelled 08/31/24 04:06
Total Bilirubin 0.6 mg/dl (0.2-1.3) 08/31/24 04:05
AST 25 U/L (14-36) 08/31/24 04:05
ALT 25 U/L (0-35) 08/31/24 04:05
Alkaline Phosphatase 92 U/L (38-126) 08/31/24 04:05
Troponin I < 0.012 ng/ml 08/31/24 04:05
Impression/Plan
-
A/P: Patient is an 89y F with PMH significant for ASCVD, hypertension and hypothyroidism who presents to ED complaining of chest pain that woke her from sleep.
ACS
ASCVD
- Admit to IVU for further evaluation and treatment.
- Symptoms are consistent with her prior anginal symptoms / episodes of chest pain.
- Had NSTEMI during recent admission with peak troponin = 1.57. Currently troponin is undetectable.
- EKG with new ST-T wave changes compared to previous.
- IV heparin and IV NTG and titrate as needed for recurrent symptoms.
- Cardiology evaluation +/- repeat cath given persistent symptoms.
- Adjust medications as able / needed for improved control of angina symptoms.
Chronic HFrEF
- Patient does not appear grossly volume overloaded at present.
- Continue current med regimen including diuretic dosing, TRISH inhibitor, etc.
- Follow I/Os, daily weights, etc.
Hypokalemia
Hypomagnesemia
- Replace Magnesium and Potassium.
- Follow labs / lytes for improvement.
Benign Hypertension
- Stable. Continue current med regimen and adjust as needed.
Hypothyroidism
- Stable. Continue current T4 supplementation.
- TSH today is normal.
Chronic Back Pain
- Stable. Continue pain control efforts.
DVT Prophylaxis: On IV Heparin
Code Status: DNR
[2024-08-31] MEDS: MAGNESIUM SULFATE 50 IV (06:43)
[2024-08-31] MEDS: KCL 20 MEQ PO ×2 (06:49→11:56)
--- NOTE | 2024-08-31 07:08 | EDRN ---
324mg Aspirin PO given @ 0445, documented on STEMI sheet and ordered signed by Dr Ceron.
[2024-08-31 07:24] LABS: Troponin I 0.756 ng/ml
--- NOTE | 2024-08-31 07:37 | W.PN.HOSP.TC ---
Today's Communication/Plan
-
see A/P
Assessment / Plan
Assessment / Plan
HPI: 89 yo F with PMH significant for ASCVD, hypertension and hypothyroidism; who presented to ED complaining of chest pain.
Patient woke around 2-3 AM on DOA with substernal chest pain / pressure. She had associated shortness of breath and diaphoresis. She felt nauseated by had no emesis. Patient took NTG SL tabs x 3 at home - each with only brief improvement in her
symptoms. She presented to the ED for further evaluation and treatment.
In the ED, patient received nitroglycerin and then was pain free.
Patient has recent history of similar episodes / symptoms.
She was admitted here in June and again 08/10 - 08/15 for similar complaints.
Patient had cardiac cath in June showing multivessel disease with no clear targets for stenting / revascularization. She was deemed non-operative candidate in terms of CABG.
Her med regimen was adjusted for improvement in her anginal symptoms.
Patient states that she was completely pain free for about one week after her most recent hospital stay. Her symptoms have since started to recur.
Patient notes that symptoms typically occur at night / usually wake her from sleep. She admit to dyspnea with activity / exertion during the day.
No changes in her med regimen since her last admission.
A/P:
# chest pain 2/2 ACS
# ASCVD
Symptoms are consistent with her prior anginal symptoms / episodes of chest pain.
Had NSTEMI during recent admission with peak troponin = 1.57.
Trop 0.756, cont to trend til peak
EKG noted new ST-T wave changes of inferior-lateral leads
Continue heparin drip, nitro drip and titrate as needed for recurrent symptoms.
Cardiology planning for cardiac cath
# Chronic HFrEF
Patient does not appear grossly volume overloaded at present.
Continue current med regimen including diuretic dosing, TRISH inhibitor, etc.
Follow I/Os, daily weights, etc.
# Hypokalemia
# Hypomagnesemia
Replace lytes and follow levels
# Benign Hypertension, Stable.
Continue current med regimen and adjust as needed.
# Hypothyroidism, Stable.
Continue current T4 supplementation.
TSH WNL at 1.25
# Chronic Back Pain, Stable.
Continue pain control efforts.
DVT Prophylaxis: On IV Heparin
Code Status: DNR
DW son at bedside
Anticipated Discharge: > 48 hours
Subjective/Interval History
-
Date of Service: August 31, 2024
Objective Data
-
Labs:
Laboratory Results
08/31/24 08/31/24 08/31/24
04:05 04:06 10:43
WBC 7.2
Hgb 12.4
Hct 36.6 L
Plt Count 198
PT 13.9
INR 1.02
APTT 30.8 Cancelled Pending
Sodium 141
Potassium 3.3 L
Chloride 105
Carbon Dioxide 23
BUN 36 H
Creatinine 1.2 H
Glucose 122 H
Calcium 8.5
Total Bilirubin 0.6
AST 25
ALT 25
Alkaline Phosphatase 92
Vital Signs:
Vital Signs
Temp Pulse Resp BP Pulse Ox
36.6 C 68 20 112/63 97
08/31/24 03:52 08/31/24 07:08 08/31/24 07:08 08/31/24 07:08 08/31/24 07:08
Review of Systems
-
All other systems: Reviewed and negative
Physical Exam
-
General: Well Developed, Well Nourished, No Apparent Distress, Comfortable and Conversant
HEENT: Normocephalic and Atraumatic
Respiratory: Clear to Auscultation and Non Labored Respirations; Negative Accessory Resp Muscle Use
Cardiac: Regular Rhythm and S1/S2
GI: Soft and Nontender
Musculoskeletal: No Edema
Neuro: Awake and Alert
Psych: Calm
Data Reviewed
-
Labs: Labs Reviewed by me
--- NOTE | 2024-08-31 08:08 | PTCARENOTE ---
Patient admitted to IVU, currently chest pain free. Heparin, Magnesium and Nitro gtt infusing per MAR. Family at bedside, call osorio in reach
--- NOTE | 2024-08-31 08:58 | PTCARENOTE ---
Patient sent to the general production laborer, report given
[2024-08-31 10:24] LABS: ACT-LR - POC 310 Seconds (116-155)
[2024-08-31 10:44] LABS: ACT-LR - POC 294 Seconds (116-155)
[2024-08-31 11:00] LABS: ACT-LR - POC 266 Seconds (116-155)
--- NOTE | 2024-08-31 11:25 | PTCARENOTE ---
Patient received from the laborer gold leaf, right groin site CDI, Precautions reviewed, VSS, SR with 1st HB in the 70's. Dov in place. Call osorio in reach
[2024-08-31] MEDS: PLAVIX PO (11:45)
[2024-08-31] MEDS: LOW STRENGTH ASPIRIN PO (11:46)
--- NOTE | 2024-08-31 11:51 | ITS.CL.CATH ---
[facility] - Catheterization
Cardiac Catheterization
Procedure Report:
LEFT HEART CATHETERIZATION AND CORONARY INTERVENTION
Date of Procedure: August 31, 2024
Referring: Paul Art MD
PROCEDURES:
1. Left heart catheterization, coronary angiogram.
2. Ultrasound-guided access
3. Successful percutaneous coronary artery intervention of 90% hazy proximal left circumflex stenosis (JENNIFER II flow, heavily calcified) with one 2.75 x 12 mm Medtronic [place] frontier drug-eluting stent, deployed at 18 katie with an excellent
angiographic result and JENNIFER-3 flow restored into the distal vessel.
INDICATION: NSTEMI with recurrent chest pain despite optimal medical therapy
ACCESS:
1. Right common femoral artery, 7 [place] sheath, under ultrasound guidance
HEMODYNAMICS : (mmHg)
AO (s/d) : 131/58
LV (s/d) : 132/14
LVEDP : 21
CORONARY FINDINGS
Dominance: Right. Heavily calcified coronary arteries.
Left Main: The left main artery is a medium caliber vessel which gives rise to the left anterior descending artery and the left circumflex artery. Distal left main has a calcified 30% stenosis.
LAD: Diffuse disease with a 70% proximal stenosis. D2 is very small in caliber with diffuse up to 70% ostial to proximal stenosis.
Circumflex: The left circumflex artery is a medium caliber vessel which gives rise to 2 major obtuse marginal branches and a left posterolateral branch. Ostial left circumflex has eccentric 70-80% stenosis. Proximal left circumflex has a hazy,
heavily calcified 90% stenosis at the level of the takeoff of OM1 with JENNIFER II flow into the distal vessel and was thought to be the culprit of presenting ACS.
RCA: The RCA is heavily calcified, moderate caliber, dominant vessel which gives rise to the right posterior descending artery and the right posterolateral system. There is diffuse proximal to mid RCA stenosis, heavily calcified up to 85%. Ostial
RPDA is 100% chronic total occlusion with robust [id number] collaterals. The RPL system has ostial 70% stenosis with JENNIFER II flow.
CORONARY INTERVENTION: After reviewing the films with both Drs. Art and Dillon, decision was made to move forward with attempting PCI to proximal left circumflex artery which was thought to be the culprit of presenting ACS given JENNIFER II flow into
the distal vessel. We upsized the right common femoral arterial sheath from a 6 to a 7 [place] to provide additional support. Additional heparin was given to maintain a therapeutic ACT throughout the case. The left coronary artery was selectively
engaged using a 7 [place] EBU 3.5 guide catheter. We initially attempted wiring the culprit lesion using a 190 cm 0.014' BMW coronary wire however despite multiple passes we were not able to cross the lesion. We redirected the BMW wire into the LAD
and with some difficulty we were able to navigate the diffuse disease in the proximal to mid LAD and parked the wire in the distal LAD. At this point we attempted crossing the culprit lesion with a 300 cm 0.014' whisper coronary wire and after
multiple attempts we were able to cross the lesion into the distal vessel. We attempted bringing a fine cross microcatheter however we could not cross the lesion with this. Given concern that we would not be able to deliver a balloon at this point
we reattempted crossing the lesion with a second 190 cm 0.014' BMW coronary wire while leaving the whisper wire in place. With multiple passes we were now able to cross the lesion which appeared to take a slightly different angulation compared to
the whisper wire. We left a whisper wire in place to act as a mathew supportive wire and work primarily over the short BMW wire. Given initial concern where we could not easily pass a fine cross across the lesion we brought in a 1.5 x 12 mm Euphora
semicompliant balloon and with some difficulty we were able to cross the lesion and inflated the balloon at 16 katie. After this over the BMW wire we introduced a 2.5 x 12 mm NC trek balloon and with significant difficulty we were able to deliver the
balloon over the lesion and inflated it up to 18 katie with good expansion. Subsequently we delivered a stent, again with significant difficulty and deployed the 2.75 x 12 mm Medtronic [place] frontier drug-eluting stent at 18 katie with excellent
angiographic result and JENNIFER-3 flow restored into the distal vessel. Patient was reloaded with Plavix at 300 mg at the end of the case. Patient tolerated the procedure well without acute complications.
SEDATION: 97 minutes of procedural sedation was utilized. An independent medical claims examiner was present to assist with and help manage the patient's level of consciousness and physiologic status
RADIATION SUMMARY: Fluoro Time (min): 16.3, Dose (mGy): 1484.7, DAP (Gy.cm2) : 89.4
Closure Device: 8 [place] Angio-Seal over the right common femoral arterial access site with successful hemostasis.
CONCLUSIONS
1. Heavily calcified coronary arteries with significant multivessel coronary artery disease.
2. Successful percutaneous coronary artery intervention of presumed culprit 90% hazy proximal left circumflex stenosis (JENNIFER II flow, heavily calcified) with one 2.75 x 12 mm Medtronic [place] frontier drug-eluting stent, deployed at 18 katie with an
excellent angiographic result and JENNIFER-3 flow restored into the distal vessel.
3. Residual significant disease as noted above in the RCA, ostial left circumflex and LAD.
4. Elevated LVEDP 21 mmHg.
RECOMMENDATIONS
1. Dual antiplatelet therapy with daily baby aspirin and Plavix along with high intensity statin and beta-armin as tolerated.
2. Recheck limited echocardiogram to reassess biventricular function.
3. Aggressive management of cardiovascular risk factors.
4. Goal-directed medical therapy for ischemic cardiomyopathy and optimization of antianginal therapy given no great PCI options for residual disease.
5. Referral for outpatient cardiac rehab.
Copy to : Dr. Manolo Fraser MD
Jyothi Elias MD, [facility], [facility]
[2024-08-31] MEDS: LASIX 20 MG IV (11:54)
[2024-08-31] MEDS: SYNTHROID 88 MCG PO (11:55)
[2024-08-31] MEDS: ZESTRIL 2.5 MG PO (11:55)
[2024-08-31] MEDS: LASIX PO (12:09)
[2024-08-31] MEDS: PROTONIX 40 MG PO (12:09)
[2024-08-31] MEDS: IMDUR (EXTENDED RELEASE) 60 MG PO (12:15)
[2024-08-31] MEDS: ROXICODONE 10 MG PO ×2 (12:39→18:31)
--- NOTE | 2024-08-31 13:46 | CM ---
Addendum entered by GINGER Morales 08/31/24 15:15:
Spoke w/ Cardiac Rehab; patient is not a candidate for Cardiac Rehab. She reports that family is interested in home health
Met w/ patient, son and granddtr. at bedside. Offered VN; patient would be agreeable. Will send referral to [facility], await response.
Original Note:
CM following for DC planning needs.
Met w/ patient at bedside to complete initial assessment. 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
Pt. known to me from prior admission. Was just @ TELEPHONE, DC'ed to home, 08/15 without needs.
Pt. resides in a [address] alone. Home has 3 SWAPNIL. Son and his family live down the street and assist as needed.
Pt. is functionally indep. w/ use of a SPC at baseline.
Goal is for DC to home without needs.
Will cont. to follow.
--- NOTE | 2024-08-31 17:29 | PTCARENOTE ---
Troponin 6.[address] Elias. Cancel remaining troponin's
[2024-08-31] MEDS: LIPITOR 40 MG PO (17:49)
[2024-08-31] MEDS: TYLENOL 650 MG PO ×2 (17:50→22:29)
--- NOTE | 2024-08-31 18:26 | PTCARENOTE ---
Patient with 6 out [address] Elias notified. Pain is not similar to the pain that brought her to the ER last night. EKG completed, unchanged. VSS. Poor appetite, encouraged her to order dinner. Has chronic back pain Oxycodone given as
well for 7 out 10 back pain
[2024-08-31] MEDS: MAALOX 30 ML PO (18:32)
--- NOTE | 2024-08-31 18:35 | PTCARENOTE ---
Patient eating custard and grilled cheese. Appears more comfortable.
--- NOTE | 2024-08-31 18:59 | PTCARENOTE ---
Patients epigastric pain has resolved. Lying on right side, call osorio in reach
--- NOTE | 2024-08-31 21:01 | PTCARENOTE ---
Pt. received at change of shift. Pt. seen and assessed in room. R groin site checked, minimal bleeding at site (continuing to monitor), soft, pt. has no complaints of pain at site. Pt. AOx3, tele reading NSR with PVCs. This RN explained plan of care
to patient, pt. verbalizes understanding. Call osorio within reach. Continuing to monitor at this time.
[2024-08-31] MEDS: TOPROL XL 25 MG PO (22:29)
[2024-08-31] MEDS: CYMBALTA DELAYED RELEASE 60 MG PO (22:29)
[2024-09-01] VITALS (12 sets, daily range): BP systolic 87–136; BP diastolic 51–66; PULSE 71; O2SAT 96; BMI 23.6
[2024-09-01] MEDS: ROXICODONE 10 MG PO ×3 (00:14→20:22)
[2024-09-01 03:52] LABS: Hematocrit 34.3 % (37.0-47.0); Mean Corpuscular Hgb 33.4 pg (27.0-31.0); Mean Corpuscular Volume 95.5 fL (81.0-99.0); Mean Platelet Volume 10.1 fL (7.4-10.4); Platelet Count 195 10^3/uL (130-400); Red Blood Cell Count 3.59 10^6/uL (4.20-5.40); Red Cell Dist. Width 13.2 % (11.5-14.5); White Blood Cell Count 5.7 10^3/uL (4.8-10.8)
[2024-09-01 04:12] LABS: Blood Urea Nitrogen 31 mg/dl (7-17); Calcium 8.3 mg/dl (8.4-10.2); Carbon Dioxide 24 mmol/L (22-30); Chloride 104 mmol/L (98-107); Estimated Creatinine Clearance 29 ml/min; Glucose 126 mg/dl (70-99); Magnesium 1.5 mg/dl (1.6-2.3); Potassium 3.9 mmol/L (3.5-5.1); Sodium 138 mmol/L (135-145); eGFR 54.19
[2024-09-01] MEDS: SYNTHROID 88 MCG PO (04:38)
[2024-09-01] MEDS: MAGNESIUM SULFATE 50 IV ×2 (04:38→09:40)
[2024-09-01] MEDS: LOW STRENGTH ASPIRIN 81 MG PO (08:10)
[2024-09-01] MEDS: PROTONIX 40 MG PO (08:10)
[2024-09-01] MEDS: PLAVIX 75 MG PO (08:10)
[2024-09-01] MEDS: IMDUR (EXTENDED RELEASE) 60 MG PO (08:10)
[2024-09-01] MEDS: LASIX 20 MG PO (08:11)
--- NOTE | 2024-09-01 09:26 | W.PN.HOSP.TC ---
Today's Communication/Plan
-
see A/P
PT OT eval
Possibly DC once cleared by card
Assessment / Plan
Assessment / Plan
HPI: 89 yo F with PMH significant for ASCVD, hypertension and hypothyroidism; who presented to ED complaining of chest pain.
A/P:
# chest pain 2/2 ACS/NSTEMI
Trop peaked to 6.[address]-T wave changes of inferior-lateral leads
s/p heparin drip, s/p nitro drip
s/p cardiac cath: PCI to proximal left circumflex stenosis
Cont Dual antiplatelet therapy with daily baby aspirin and Plavix, Cont high intensity statin and beta-armin as tolerated.
Echo noted EF 20-25%. Compared to 06/2024, ejection fraction is further diminished and apical/apical lateral akinesis is noted
Referral for outpatient cardiac rehab.
# Chronic HFrEF
Patient does not appear grossly volume overloaded at present.
Continue current med regimen including diuretic dosing, TRISH inhibitor, etc.
Follow I/Os, daily weights, etc.
# Hypokalemia
# Hypomagnesemia
Replace lytes and follow levels
# Benign Hypertension, Stable.
Continue current med regimen and adjust as needed.
# Hypothyroidism, Stable.
Continue current T4 supplementation.
TSH WNL at 1.25
# Chronic Back Pain, Stable.
Continue pain control efforts.
DVT Prophylaxis: On IV Heparin
Code Status: DNR
DW RN
DW Card
Anticipated Discharge: Within 24 hours
Subjective/Interval History
-
Date of Service: September 01, 2024
Objective Data
-
Labs:
Laboratory Results
08/31/24 09/01/24
14:58 03:18
WBC 5.7
Hgb 12.0
Hct 34.3 L
Plt Count 195
APTT Cancelled
Sodium 138
Potassium 3.9
Chloride 104
Carbon Dioxide 24
BUN 31 H
Creatinine 1.0
Glucose 126 H
Calcium 8.3 L
Vital Signs:
Vital Signs
Temp Pulse Resp BP Pulse Ox
36.9 C 70 16 105/58 92
09/01/24 07:23 09/01/24 08:15 09/01/24 07:23 09/01/24 08:11 09/01/24 07:23
I&O
08/31/24 09/01/24 09/02/24
06:59 06:59 06:59
Output Total 1200 / 1200
Balance -1200 / -1200
[2024-09-01 09:39] LABS: Magnesium 2.3 mg/dl (1.6-2.3)
[2024-09-01] MEDS: ZESTRIL 2.5 MG PO (09:41)
--- NOTE | 2024-09-01 16:21 | W.PN.CARDCBS ---
Today's Communication / Plan
-
Optimize goal-directed medical therapy following non-STEMI and PCI
PT/OT evaluation
Impression / Plan
-
.
Primary Janitor: Dr. Fraser
Impression:
Presents 08/31/2024 with recurrent angina/chest pain despite optimal medical therapy
Abnormal troponin, peaked 6.07
NSTEMI
Multivessel heavily calcified coronary artery disease; deemed poor candidate for CABG
s/p prox Left circumflex 2.75 x 12 mm Medtronic [place] frontier drug-eluting stent 08/31/2024
Hypokalemia
ASTER, resolved
Ischemic Cardiomyopathy
HTN
HLD
DM2
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
Hypothyroidism
History of multiple back surgeries with spinal stimulator in place
History of UTIs
History of Myoclonic jerks secondary to Ranexa, Resolved
Echo 08/31/2024: EF 20 to 25%. Global hypokinesis. Akinesis of the apex and apical lateral wall. Mild AI.
ECHO 06/28/24: Global hypokinesis, EF 38%, mild concentric LVH, stage I diastolic dysfunction, mild MR, aortic sclerosis, mild to moderate AR
ECHO 09/22/2022: EF 57%, mild concentric LVH, trace MR, mild AR, mild TR, PAP 21 mmHg
Cardiac cath 08/31/2024: Heavily calcified coronary arteries. LM: Distal 30% stenosis. LAD diffuse disease, 70% proximal, D2 small caliber diffuse disease up to 70% ostial to proximal. Left circumflex: Ostial 70 to 80%, proximal 90% at takeoff of
OM1 s/p 2.75 x 12 mm Medtronic [place] frontier EMILE. RCA: Heavily calcified proximal to mid 85%. Ostial PDA 100% PRESIDENT & CEO with [id number] collaterals. RPL ostial 70%
cath 06/29/24: Heavily calcified coronary arteries with significant multivessel disease. 40% left main, 70% proximal LAD, 85% left circumflex, 85% mid RCA with 100% occluded RPDA
Plan:
Non-STEMI with Multivessel heavily calcified coronary artery disease; deemed poor candidate for CABG in June 2024
-Found to have abnormal troponin, peak 6.07
-Repeat cardiac catheterization 08/31/24 s/p prox Left circumflex 2.75 x 12 mm Medtronic [place] frontier drug-eluting stent 08/31/2024
-EKG 09/01/2024 with anteroseptal and lateral T wave inversion consistent with recent infarct/repolarization abnormalities; Prolonged QTc
-Continue telemetry monitoring. Repeat EKG tomorrow
-Dual antiplatelet therapy with aspirin and Plavix
-Lipids 08/14/2024 TC 126, HDL 51, LDL 57, triglycerides 92. Lipids at goal continue moderate intensity statin
-Hemoglobin A1c 06/27/2024 5.8%
-Case management consult for cost of SGLT2 inhibitor
-Continue Imdur and Toprol. Of note patient did not tolerate Ranexa secondary to myoclonic jerks
-Continue aggressive management of cardiovascular risk factors
-Cardiac rehab consultation
Ischemic cardiomyopathy
-Further reduction of EF noted with new akinesis of apex and apical lateral wall on echo 08/31/2024
-GDMT: Continue Toprol, Low-dose lisinopril. Unfortunately hypotension prevents initiation of Entresto.
-Case management consult With plan to add SGLT2 inhibitor
-Replete magnesium, pt got 2 grams 08/31 and 2 grams 09/01 in am
PT OT consult with likely need for SNF
Progress Note - Janitor
Subjective
Date of Service: September 01, 2024
Seen and examined. No chest pain or pressure. Denies shortness of breath. No palpitations
Objective
Labs:
09/01/24 03:18
09/01/24 03:18
Labs
Hgb 12.0 g/dL (12.0-16.0) 09/01/24 03:18
Hct 34.3 % (37.0-47.0) L 09/01/24 03:18
Plt Count 195 10^3/uL (130-400) 09/01/24 03:18
PT 13.9 Sec (11.4-14.6) 08/31/24 04:05
INR 1.02 08/31/24 04:05
APTT Cancelled 08/31/24 14:58
Sodium 138 mmol/L (135-145) 09/01/24 03:18
Potassium 3.9 mmol/L (3.5-5.1) 09/01/24 03:18
BUN 31 mg/dl (7-17) H 09/01/24 03:18
Creatinine 1.0 mg/dL (0.6-1.0) 09/01/24 03:18
Glucose 126 mg/dl (70-99) H 09/01/24 03:18
Troponins
08/31/24 08/31/24 08/31/24
04:05 06:45 07:45
Troponin I < 0.012 0.756 H* D Cancelled
08/31/24 08/31/24 08/31/24
13:45 14:05 14:40
Troponin I Cancelled Cancelled 6.070 H* D
08/31/24 08/31/24 09/01/24
18:00 19:45 08:29
Troponin I Cancelled Cancelled 3.900 H*
Vital Signs and I&O:
Vital Signs
Temp Pulse Resp BP Pulse Ox
97.9 F 79 18 99/64 91
09/01/24 15:39 09/01/24 16:00 09/01/24 15:39 09/01/24 15:39 09/01/24 15:39
Vital Signs
Temp Pulse Resp BP Pulse Ox
97.9 F 79 18 99/64 91
09/01/24 15:39 09/01/24 16:00 09/01/24 15:39 09/01/24 15:39 09/01/24 15:39
Intake & Output
08/30/24 08/31/24 09/01/24 09/02/24
06:59 06:59 06:59 06:59
Intake Total 250 / 250
Output Total 1200 / 1200 250 / 250
Balance -1200 / -1200 0 / 0
Physical Exam
Physical Exam
GEN: No distress, awake, alert, resting comfortably
HEENT: mmm
LUNGS: CTA B/L, no wheezes
CV: Reg and claribel, S1/S2, no murmur
ABD: soft, BS+, NT/ND
EXT:No edema.Cath site intact without hematoma
[2024-09-01] MEDS: LIPITOR 40 MG PO (17:28)
[2024-09-01] MEDS: TOPROL XL 25 MG PO (22:31)
[2024-09-01] MEDS: CYMBALTA DELAYED RELEASE 60 MG PO (22:31)
--- NOTE | 2024-09-01 23:17 | PTCARENOTE ---
Pt received at change of shift. NSR on tele with HR 60s-70s. R groin cath site c/d/i with ecchymosis noted. Pt with complaints of 7/10 lower back pain, oxy administered per orders. Denies CP. Pt states she is having burning with urination and is
prone to UTIs, Mariela Nunn, RING PACKER notified and UA ordered. Ambulating with x1 assist and rolling walker. Plan of care discussed and pt verbalizes understanding. Call osorio within reach.
[2024-09-02] VITALS (9 sets, daily range): BP systolic 78–131; BP diastolic 43–63; BMI 23.9
--- NOTE | 2024-09-02 01:50 | W.PN.UPDATE ---
Update Note
Progress Note Update
pt complaining of dysuria. hx of frequent uti
requesting ua
order placed
[2024-09-02 04:45] LABS: Hematocrit 30.6 % (37.0-47.0); Hemoglobin 10.7 g/dL (12.0-16.0); Mean Corpuscular Volume 97.1 fL (81.0-99.0); Mean Platelet Volume 10.3 fL (7.4-10.4); Platelet Count 201 10^3/uL (130-400); Red Blood Cell Count 3.15 10^6/uL (4.20-5.40); Red Cell Dist. Width 13.2 % (11.5-14.5)
[2024-09-02 06:19] LABS: Blood Urea Nitrogen 30 mg/dl (7-17); Calcium 8.5 mg/dl (8.4-10.2); Carbon Dioxide 30 mmol/L (22-30); Chloride 101 mmol/L (98-107); Estimated Creatinine Clearance 27 ml/min; Glucose 106 mg/dl (70-99); Magnesium 2.2 mg/dl (1.6-2.3); Potassium 3.9 mmol/L (3.5-5.1); Sodium 136 mmol/L (135-145); eGFR 48.33
[2024-09-02] MEDS: SYNTHROID 88 MCG PO (06:33)
[2024-09-02] MEDS: ROXICODONE 10 MG PO ×3 (06:33→22:54)
[2024-09-02 07:06] LABS: Urine Albumin Trace (Neg - Trace); Urine Bilirubin Negative (Negative); Urine Character Very Cloudy (Clear); Urine Color Yellow; Urine Glucose Negative (Negative); Urine Ketone Negative (Negative); Urine Leukocyte 2+ (Negative); Urine Nitrite Negative (Negative); Urine Occult Blood Trace (Negative); Urine Specific Gravity 1.015 (<1.030); Urine Urobilinogen Negative (Neg - 1+)
[2024-09-02 07:12] LABS: Urine Bacteria Many (Negative); Urine White Cell 90-100 /HPF (0-5)
--- NOTE | 2024-09-02 08:00 | PTCARENOTE ---
Assumed care of pt from prev nsg shift; Pt Drowsy but easily arousable to voice. Pt AAOX3 w/no c/o CP or SOB. Pt is very [place] bilat w/no hearing aids here, but can easily understand staff when spoken directly to. Pt's VS stable this AM w/HR in the
70's & BP this AM 94/43. Pt is SR w/prol QT on telemetry monitoring. Pt's R femoral access site is KIRA w/some ecchymosis, but no signs or symptoms of bleeding or hematoma. Pt w/callbell within reach & no addtl needs at this time.
--- NOTE | 2024-09-02 09:07 | W.PN.HOSP.TC ---
Today's Communication/Plan
-
see A/P
follow urine Cx, start empiric Ceftriaxone
dispo planning to SNF
Assessment / Plan
Assessment / Plan
HPI: 89 yo F with PMH significant for ASCVD, hypertension and hypothyroidism; who presented to ED complaining of chest pain.
A/P:
# chest pain 2/2 ACS/NSTEMI
Trop peaked to 6.[address]-T wave changes of inferior-lateral leads
s/p heparin drip, s/p nitro drip
s/p cardiac cath: PCI to proximal left circumflex stenosis
Echo this admission noted EF 20-25%. Compared to 06/2024, ejection fraction is further diminished and apical/apical lateral akinesis is noted
Cont Dual antiplatelet therapy with daily baby aspirin and Plavix, Cont high intensity statin and beta-armin as tolerated.
Referral for outpatient cardiac rehab.
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
PT OT recc SNF for weakness
# Chronic HFrEF
Patient does not appear grossly volume overloaded
Continue current med regimen including diuretic dosing, TRISH inhibitor, etc.
Follow I/Os, daily weights, etc.
# Dysuria
Follow urine Cx
started empiric Abx Ceftriaxone (she has tolerated Keflex before)
Of note, prolonged QTc prohibits the use of Cipro/Levaquin
# Hypokalemia
# Hypomagnesemia
Replaced lytes
# Benign Hypertension, Stable.
Continue current med regimen and adjust as needed.
# Hypothyroidism, Stable.
Continue current T4 supplementation.
TSH WNL at 1.25
# Chronic Back Pain, Stable.
Continue pain control efforts.
DVT Prophylaxis: On IV Heparin
Code Status: DNR
Dispo: SNF per PT OT
Updated DIL [phone] per pt request.
Anticipated Discharge: 24 - 48 hours
Subjective/Interval History
-
Date of Service: September 02, 2024
Objective Data
-
Labs:
Laboratory Results
09/02/24
04:01
WBC 5.0
Hgb 10.7 L
Hct 30.6 L
Plt Count 201
Sodium 136
Potassium 3.9
Chloride 101
Carbon Dioxide 30
BUN 30 H
Creatinine 1.1 H
Glucose 106 H
Calcium 8.5
Vital Signs:
Vital Signs
Temp Pulse Resp BP Pulse Ox
37.0 C 66 20 94/43 94
09/02/24 07:37 09/02/24 07:41 09/02/24 07:37 09/02/24 07:41 09/02/24 07:37
I&O
09/01/24 09/02/24 09/03/24
06:59 06:59 06:59
Intake Total 250 / 250
Output Total 1200 / 1200 425 / 425
Balance -1200 / -1200 -175 / -175
[2024-09-02] MEDS: IMDUR (EXTENDED RELEASE) 60 MG PO (09:22)
[2024-09-02] MEDS: LOW STRENGTH ASPIRIN 81 MG PO (09:23)
[2024-09-02] MEDS: ZESTRIL 2.5 MG PO (09:23)
[2024-09-02] MEDS: PROTONIX 40 MG PO (09:23)
[2024-09-02] MEDS: LASIX 20 MG PO (09:23)
[2024-09-02] MEDS: PLAVIX 75 MG PO (09:23)
[2024-09-02] MEDS: STERILE WATER FOR INJECTION 10 ML IV (10:52)
[2024-09-02] MEDS: FLUSH (NSS) 2 FLUSH IV (10:53)
[2024-09-02] MEDS: ROCEPHIN 1000 MG IV (10:53)
[2024-09-02] MEDS: LIPITOR 40 MG PO (18:34)
--- NOTE | 2024-09-02 18:39 | W.PN.CARDCBS ---
Today's Communication / Plan
-
Monitor on telemetry
Repeat EKG in the morning
Discharge planning
Impression / Plan
-
.
Primary Mixed Livestock Farmer: Dr. Fraser
Impression:
Presents 08/31/2024 with recurrent angina/chest pain despite optimal medical therapy
Abnormal troponin, peaked 6.07
NSTEMI
Multivessel heavily calcified coronary artery disease; deemed poor candidate for CABG
s/p prox Left circumflex 2.75 x 12 mm Medtronic [place] frontier drug-eluting stent 08/31/2024
Hypokalemia
ASTER, resolved
Ischemic Cardiomyopathy
HTN
HLD
DM2
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
Hypothyroidism
History of multiple back surgeries with spinal stimulator in place
History of UTIs
History of Myoclonic jerks secondary to Ranexa, Resolved
Echo 08/31/2024: EF 20 to 25%. Global hypokinesis. Akinesis of the apex and apical lateral wall. Mild AI.
ECHO 06/28/24: Global hypokinesis, EF 38%, mild concentric LVH, stage I diastolic dysfunction, mild MR, aortic sclerosis, mild to moderate AR
ECHO 09/22/2022: EF 57%, mild concentric LVH, trace MR, mild AR, mild TR, PAP 21 mmHg
Cardiac cath 08/31/2024: Heavily calcified coronary arteries. LM: Distal 30% stenosis. LAD diffuse disease, 70% proximal, D2 small caliber diffuse disease up to 70% ostial to proximal. Left circumflex: Ostial 70 to 80%, proximal 90% at takeoff of
OM1 s/p 2.75 x 12 mm Medtronic [place] frontier EMILE. RCA: Heavily calcified proximal to mid 85%. Ostial PDA 100% PRINCIPAL ARCHAEOLOGIST with [id number] collaterals. RPL ostial 70%
cath 06/29/24: Heavily calcified coronary arteries with significant multivessel disease. 40% left main, 70% proximal LAD, 85% left circumflex, 85% mid RCA with 100% occluded RPDA
Plan:
Non-STEMI with Multivessel heavily calcified coronary artery disease; deemed poor candidate for CABG in June 2024
-Found to have abnormal troponin, peak 6.07
-Cardiac catheterization 08/31/24 s/p prox Left circumflex 2.75 x 12 mm Medtronic [place] frontier drug-eluting stent 08/31/2024
-Dual antiplatelet therapy with aspirin and Plavix
-Lipids 08/14/2024 TC 126, HDL 51, LDL 57, triglycerides 92. Lipids at goal continue moderate intensity statin
-Hemoglobin A1c 06/27/2024 5.8%
-Case management consult for cost of SGLT2 inhibitor
-Continue Imdur and Toprol. Of note patient did not tolerate Ranexa secondary to myoclonic jerks
-Continue aggressive management of cardiovascular risk factors
-Cardiac rehab consultation
Ischemic cardiomyopathy
-Further reduction of EF noted with new akinesis of apex and apical lateral wall on echo 08/31/2024
-GDMT: Continue Toprol, Low-dose lisinopril. Unfortunately hypotension prevents Transition to Entresto or addition of Aldactone.
-Case management consult With plan to add SGLT2 inhibitor
Prolonged QTc
-Continue telemetry monitoring. Repeat EKG tomorrow
-Avoid QT prolonging agents
-Keep K greater than 4, mag greater than 2
-If remains prolonged will discuss with the EP
PT/ OT consult with likely need for SNF
Progress Note - Mixed Livestock Farmer
Subjective
Date of Service: September 02, 2024
Patient seen and examined this morning. Offers no complaints.
Objective
Labs:
09/02/24 04:01
09/02/24 04:01
Labs
Hgb 10.7 g/dL (12.0-16.0) L 09/02/24 04:01
Hct 30.6 % (37.0-47.0) L 09/02/24 04:01
Plt Count 201 10^3/uL (130-400) 09/02/24 04:01
PT 13.9 Sec (11.4-14.6) 08/31/24 04:05
INR 1.02 08/31/24 04:05
APTT Cancelled 08/31/24 14:58
Sodium 136 mmol/L (135-145) 09/02/24 04:01
Potassium 3.9 mmol/L (3.5-5.1) 09/02/24 04:01
BUN 30 mg/dl (7-17) H 09/02/24 04:01
Creatinine 1.1 mg/dL (0.6-1.0) H 09/02/24 04:01
Glucose 106 mg/dl (70-99) H 09/02/24 04:01
Troponins
08/31/24 08/31/24 08/31/24
04:05 06:45 07:45
Troponin I < 0.012 0.756 H* D Cancelled
08/31/24 08/31/24 08/31/24
13:45 14:05 14:40
Troponin I Cancelled Cancelled 6.070 H* D
08/31/24 08/31/24 09/01/24
18:00 19:45 08:29
Troponin I Cancelled Cancelled 3.900 H*
Vital Signs and I&O:
Vital Signs
Temp Pulse Resp BP Pulse Ox
98.8 F 78 24 131/63 98
09/02/24 15:18 09/02/24 15:22 09/02/24 15:18 09/02/24 15:22 09/02/24 15:18
Vital Signs
Temp Pulse Resp BP Pulse Ox
98.8 F 78 24 131/63 98
09/02/24 15:18 09/02/24 15:22 09/02/24 15:18 09/02/24 15:22 09/02/24 15:18
Intake & Output
08/31/24 09/01/24 09/02/2409/03/24
06:59 06:59 06:59 06:59
Intake Total 250 / 250 720 / 720
Output Total 1200 / 1200 425 / 425 620 / 620
Balance -1200 / -1200 -175 / -175 100 / 100
Physical Exam
Physical Exam
GEN: No distress, awake, alert, resting comfortably
HEENT: mmm
LUNGS: CTA B/L, no wheezes
CV: Reg and claribel, S1/S2, no murmur
ABD: soft, BS+, NT/ND
EXT:No edema.Cath site intact without hematoma
[2024-09-02] MEDS: CYMBALTA DELAYED RELEASE 60 MG PO (22:51)
[2024-09-02] MEDS: TOPROL XL 25 MG PO (22:51)
[2024-09-02] MEDS: MAALOX 30 ML PO (22:54)
[2024-09-03] VITALS (9 sets, daily range): BP systolic 89–132; BP diastolic 54–78; PULSE 76; O2SAT 94; BMI 24.0
--- NOTE | 2024-09-03 02:41 | PTCARENOTE ---
Pt remains in NSR on tele with prolonged QT and occasional PVCs with HR in the 80s. Denies CP and SOB. 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 Ambulating with stand-by assist and rolling walker, pt rings appropriately for assistance.
Plan of care for shift discussed and pt verbalizes understanding. Call osorio within reach.
[2024-09-03 04:22] LABS: Hematocrit 33.6 % (37.0-47.0); Hemoglobin 11.4 g/dL (12.0-16.0); Mean Corp Hgb Conc. 33.9 g/dL (33.0-37.0); Mean Corpuscular Hgb 32.3 pg (27.0-31.0); Mean Corpuscular Volume 95.2 fL (81.0-99.0); Platelet Count 221 10^3/uL (130-400); Red Blood Cell Count 3.53 10^6/uL (4.20-5.40); Red Cell Dist. Width 13.2 % (11.5-14.5); White Blood Cell Count 6.1 10^3/uL (4.8-10.8)
[2024-09-03 04:54] LABS: Blood Urea Nitrogen 29 mg/dl (7-17); Calcium 8.6 mg/dl (8.4-10.2); Carbon Dioxide 27 mmol/L (22-30); Chloride 100 mmol/L (98-107); Estimated Creatinine Clearance 29 ml/min; Glucose 111 mg/dl (70-99); Magnesium 1.7 mg/dl (1.6-2.3); Potassium 3.9 mmol/L (3.5-5.1); Sodium 135 mmol/L (135-145); eGFR 54.19
[2024-09-03] MEDS: SYNTHROID 88 MCG PO (06:29)
--- NOTE | 2024-09-03 08:15 | PTCARENOTE ---
Assumed care of pt from prev nsg shift; Pt AAOX3 w/no c/o CP or SOB. Pt mildly forgetful, easily reoriented to plan of care. Pt is very [place] bilat w/no hearing aids. Pt's VS stable this AM w/HR in the 70's & BP this AM 98/60. Pt's PO Lasix &
lisinopril held this AM due to low BP/Not within admin parameters. Pt is SR w/prol QT on telemetry monitoring. Pt's R femoral access site is CUSTOMER ACCOUNT SPECIALIST w/some ecchymosis, but no signs or symptoms of bleeding or hematoma. Pt w/callbell within reach & no
addtl needs at this time.
[2024-09-03] MEDS: IMDUR (EXTENDED RELEASE) 60 MG PO (08:32)
[2024-09-03] MEDS: ROXICODONE 10 MG PO ×2 (08:32→22:15)
[2024-09-03] MEDS: LASIX PO (08:33)
[2024-09-03] MEDS: PROTONIX 40 MG PO (08:33)
[2024-09-03] MEDS: ZESTRIL PO (08:33)
[2024-09-03] MEDS: PLAVIX 75 MG PO (08:33)
[2024-09-03] MEDS: LOW STRENGTH ASPIRIN 81 MG PO (08:34)
--- NOTE | 2024-09-03 09:17 | W.PN.CARDCBS ---
Addendum entered and electronically signed by Aby Torres MD 09/03/24 12:07:
I saw and examined the patient.
The [employer] Electronic's note was reviewed and I agree with the note.
Comment: She presented with non-Q wave myocardial infarction peak troponin 6. She is without angina status post stent of left circumflex 08/31/2024. Other residual disease noted. She tells me she has been walking in the room with her walker
without symptoms. Ejection fraction had declined from prior 38% to 20 to 25%.
-Post stent continue Plavix and aspirin. Continue lipid-lowering.
-Residual coronary disease noted no current symptoms. Continue to follow. Continue medical management. Avoid Ranexa given prior myoclonic jerks.
-Guideline directed medical therapy for heart failure with reduced ejection fraction. Hopefully her ejection fraction will improve with revascularization. Currently on lisinopril and Toprol-XL. Blood pressure on the low side. At this time avoid
SGLT2 inhibitor. If congestive symptoms could consider low-dose Aldactone.
-QT prolongation noted. Replete potassium and magnesium. Likely secondary to ischemia. Continue to follow. Avoid QT prolonging medications.
-Continue to treat UTI.
Original Note:
Today's Communication / Plan
-
Continue Dual antiplatelet therapy, Imdur and Toprol
Check EKG today
Discharge planning ongoing
Impression / Plan
-
Primary Customer Solutions Representative: Dr. Fraser
Impression:
Presents 08/31/2024 with recurrent angina/chest pain despite optimal medical therapy
Abnormal troponin, peaked 6.07
NSTEMI
Multivessel heavily calcified coronary artery disease; deemed poor candidate for CABG
s/p prox Left circumflex 2.75 x 12 mm Medtronic [place] frontier drug-eluting stent 08/31/2024Hypokalemia
ASTER, resolved
Ischemic Cardiomyopathy
HTN
HLD
DM2
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
Hypothyroidism
History of multiple back surgeries with spinal stimulator in place
History of UTIs
History of Myoclonic jerks secondary to Ranexa, Resolved
Echo 08/31/2024: EF 20 to 25%. Global hypokinesis. Akinesis of the apex and apical lateral wall. Mild AI.
ECHO 06/28/24: Global hypokinesis, EF 38%, mild concentric LVH, stage I diastolic dysfunction, mild MR, aortic sclerosis, mild to moderate AR
ECHO 09/22/2022: EF 57%, mild concentric LVH, trace MR, mild AR, mild TR, PAP 21 mmHg
Cardiac cath 08/31/2024: Heavily calcified coronary arteries. LM: Distal 30% stenosis. LAD diffuse disease, 70% proximal, D2 small caliber diffuse disease up to 70% ostial to proximal. Left circumflex: Ostial 70 to 80%, proximal 90% at takeoff of
OM1 s/p 2.75 x 12 mm Medtronic [place] frontier EMILE. RCA: Heavily calcified proximal to mid 85%. Ostial PDA 100% BINGO FLOATER with [id number] collaterals. RPL ostial 70%
cath 06/29/24: Heavily calcified coronary arteries with significant multivessel disease. 40% left main, 70% proximal LAD, 85% left circumflex, 85% mid RCA with 100% occluded RPDA
Plan:
Non-STEMI with Multivessel heavily calcified coronary artery disease; deemed poor candidate for CABG in June 2024
-Found to have abnormal troponin, peak 6.07
-Cardiac catheterization 08/31/24 s/p prox Left circumflex 2.75 x 12 mm Medtronic [place] frontier drug-eluting stent 08/31/2024
-Dual antiplatelet therapy with aspirin and Plavix
-Lipids 08/14/2024 TC 126, HDL 51, LDL 57, triglycerides 92. Lipids at goal continue moderate intensity statin
-Hemoglobin A1c 06/27/2024 5.8%
Ischemic cardiomyopathy
-Further reduction of EF noted with new akinesis of apex and apical lateral wall on echo 08/31/2024
-GDMT: Continue Toprol, Low-dose lisinopril. Unfortunately hypotension prevents Transition to Entresto or addition of Aldactone.
-Patient has history of UTI and concern for UTI on UA 09/02/24. Would hold on SGLT2 inhibitor at this time
Prolonged QTc
-Continue telemetry monitoring.
-QTc was 595 ms on ECG 09/02 - will repeat
-Avoid QT prolonging agents
-Keep K greater than 4, mag greater than 2
-If remains prolonged will discuss with the EP
Concern for UTI. Primary service has started patient on antibiotics
PT/ OT consult with likely need for SNF
Progress Note - Customer Solutions Representative
Subjective
Date of Service: September 03, 2024
Patient seen and examined. Patient reports she has been able to walk around room without further chest pain.
Objective
Labs:
09/03/24 03:38
09/03/24 03:38
Labs
Hgb 11.4 g/dL (12.0-16.0) L 09/03/24 03:38
Hct 33.6 % (37.0-47.0) L 09/03/24 03:38
Plt Count 221 10^3/uL (130-400) 09/03/24 03:38
PT 13.9 Sec (11.4-14.6) 08/31/24 04:05
INR 1.02 08/31/24 04:05
APTT Cancelled 08/31/24 14:58
Sodium 135 mmol/L (135-145) 09/03/24 03:38
Potassium 3.9 mmol/L (3.5-5.1) 09/03/24 03:38
BUN 29 mg/dl (7-17) H 09/03/24 03:38
Creatinine 1.0 mg/dL (0.6-1.0) 09/03/24 03:38
Glucose 111 mg/dl (70-99) H 09/03/24 03:38
Troponins
08/31/24 08/31/24 08/31/24
14:05 14:40 18:00
Troponin I Cancelled 6.070 H* D Cancelled
09/01/24
08:29
Troponin I 3.900 H*
Vital Signs and I&O:
Vital Signs
Temp Pulse Resp BP Pulse Ox
99.1 F 76 20 98/60 93
09/03/24 07:44 09/03/24 08:33 09/03/24 07:44 09/03/24 08:33 09/03/24 07:46
Vital Signs
Temp Pulse Resp BP Pulse Ox
99.1 F 76 20 98/60 93
09/03/24 07:44 09/03/24 08:33 09/03/24 07:44 09/03/24 08:33 09/03/24 07:46
Intake & Output
09/01/24 09/02/24 09/03/24 09/04/24
06:59 06:59 06:59 06:59
Intake Total 250 / 250 720 / 720
Output Total 1200 / 1200 425 / 425 920 / 920 300 / 300
Balance -1200 / -1200 -175 / -175 -200 / -200 -300 / -300
Physical Exam
Physical Exam
GEN: No distress, awake, Ox3, lying in bed
HEENT: supple, anicteric, mmm
LUNGS: CTA, no wheezes/rales
CV: Reg, S1/S2, 1/6 syst murmur, no rub or gallop
ABD: soft, BS+, NT/ND
EXT: No edema, clubbing or cyanosis
NEURO: Gross non-focal
SKIN: No rash, warm, dry, pink
--- NOTE | 2024-09-03 09:18 | W.PN.HOSP.TC ---
Today's Communication/Plan
-
see bold
Assessment / Plan
Assessment / Plan
HPI: 89 yo F with PMH significant for ASCVD, hypertension and hypothyroidism; who presented to ED complaining of chest pain.
A/P:
# Chest pain 2/2 ACS/NSTEMI
Trop peaked to 6.[address]-T wave changes of inferior-lateral leads
s/p heparin drip, s/p nitro drip
s/p cardiac cath 08/31: PCI to proximal left circumflex stenosis
Echo this admission noted EF 20-25%. Compared to 06/2024, ejection fraction is further diminished and apical/apical lateral akinesis is noted
Cont Dual antiplatelet therapy with daily baby aspirin and Plavix, Cont high intensity statin and beta-armin as tolerated.
Referral for outpatient cardiac rehab.
#QTc prolongation
Due to ischemia
Replace potassium and magnesium
Avoid QTc prolonging agent
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
PT OT recc SNF for weakness- CM informed
# Chronic HFrEF
Patient does not appear grossly volume overloaded
Continue current med regimen including diuretic dosing, TRISH inhibitor, etc.
Follow I/Os, daily weights, etc.
# Dysuria
Follow urine Cx
Continue Ceftriaxone D2 (she has tolerated Keflex before)
Of note, prolonged QTc prohibits the use of Cipro/Levaquin
# Hypokalemia
# Hypomagnesemia
Replaced lytes
# Benign Hypertension, Stable.
Continue current med regimen and adjust as needed.
# Hypothyroidism, Stable.
Continue current T4 supplementation.
TSH WNL at 1.25
# Chronic Back Pain, Stable.
Continue pain control efforts.
DVT Prophylaxis: SQ lovenox
Code Status: DNR
Dispo: SNF per PT OT
Dr. Robbins Updated DIL [phone] per pt request.
Total time spent to see the patient on the floor, examine the patient, review data and lab results, discuss treatment plan with patient, nursing staff around 40 minutes.
Physical Exam
General: No acute distress
HEENT: Normocephalic, Atraumatic, EOMI, MMM
Respiratory: Clear to Auscultation bilaterally
Cardiac: Normal S1/S2, Regular Rate and Rhythm
GI: Soft, Nontender, Nondistended, Normal Bowel Sounds
Extremities: No Clubbing, Cyanosis, or Edema
Neuro: Nonfocal/Grossly Intact
Anticipated Discharge: Within 24 hours
Subjective/Interval History
-
Date of Service: September 03, 2024
Denies chest pain, denies shortness of breath. Her dysuria has improved. No fever, no vomiting.
Objective Data
-
Labs:
Laboratory Results
09/03/24
03:38
WBC 6.1
Hgb 11.4 L
Hct 33.6 L
Plt Count 221
Sodium 135
Potassium 3.9
Chloride 100
Carbon Dioxide 27
BUN 29 H
Creatinine 1.0
Glucose 111 H
Calcium 8.6
Vital Signs:
Vital Signs
Temp Pulse Resp BP Pulse Ox
99.1 F 76 20 98/60 93
09/03/24 07:44 09/03/24 08:33 09/03/24 07:44 09/03/24 08:33 09/03/24 07:46
I&O
09/02/24 09/03/24 09/04/24
06:59 06:59 06:59
Intake Total 250 / 250 720 / 720
Output Total 425 / 425 920 / 920 300 / 300
Balance -175 / -175 -200 / -200 -300 / -300
[2024-09-03] MEDS: STERILE WATER FOR INJECTION 10 ML IV (11:17)
[2024-09-03] MEDS: ROCEPHIN 1000 MG IV (11:17)
[2024-09-03] MEDS: MAGNESIUM OXIDE 500 MG PO ×2 (13:23→18:09)
[2024-09-03] MEDS: KCL 40 MEQ PO (13:24)
--- NOTE | 2024-09-03 14:34 | VNURNOTE ---
Home Health Liaison spoke with patient's daughter Milena to discuss [facility] nurse/therapy, visits, schedule and homebound status. She is agreeable and understands that visits at home will be 2-3 x per week to assess and teach medical management. She is
aware that [facility] will contact them for start of care in 1-2 days after discharge from . Milena mentioned they are considering DC to rehab. T.T. sent to [facility] referral accepted in [facility]. Will watch for final DC plans.
--- NOTE | 2024-09-03 17:32 | CM ---
spoke to pt son and DIL in room. pt is agreeable to going to [facility] for rehab. son will drive her. referral faxed, awaiting bed avail from [facility].
[2024-09-03] MEDS: LIPITOR 40 MG PO (18:09)
[2024-09-03] MEDS: TOPROL XL 25 MG PO (22:08)
[2024-09-03] MEDS: CYMBALTA DELAYED RELEASE 60 MG PO (22:08)
[2024-09-04 04:06] VITALS: BP 112/59
[2024-09-04] MEDS: ROXICODONE 10 MG PO ×2 (04:19→10:38)
[2024-09-04 04:21] VITALS: BMI 23.8
[2024-09-04 05:05] LABS: Blood Urea Nitrogen 24 mg/dl (7-17); Carbon Dioxide 26 mmol/L (22-30); Chloride 103 mmol/L (98-107); Estimated Creatinine Clearance 33 ml/min; Glucose 110 mg/dl (70-99); Magnesium 1.7 mg/dl (1.6-2.3); Potassium 4.4 mmol/L (3.5-5.1); Sodium 137 mmol/L (135-145); eGFR > 60.00
--- NOTE | 2024-09-04 05:41 | PTCARENOTE ---
Pt remains NSR on tele with HR 70s-80s. Denies CP and SOB. Oxycodone administered for back pain, see DEC. 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 Pt appropriate in ringing for assistance. Ambulating with x1 assist and rolling walker to bathroom.
Call osorio within reach.
[2024-09-04] MEDS: SYNTHROID 88 MCG PO (06:30)
[2024-09-04 08:14] VITALS: BP 118/62
[2024-09-04] MEDS: LASIX 20 MG PO (08:18)
[2024-09-04] MEDS: LOW STRENGTH ASPIRIN 81 MG PO (08:18)
[2024-09-04] MEDS: ZESTRIL 2.5 MG PO (08:18)
[2024-09-04] MEDS: PLAVIX 75 MG PO (08:19)
[2024-09-04] MEDS: PROTONIX 40 MG PO (08:22)
[2024-09-04] MEDS: IMDUR (EXTENDED RELEASE) 60 MG PO (08:23)
--- NOTE | 2024-09-04 09:04 | W.PN.HOSP.TC ---
Today's Communication/Plan
-
Discharge to short-term rehab today
Assessment / Plan
Assessment / Plan
HPI: 89 yo F with PMH significant for ASCVD, hypertension and hypothyroidism; who presented to ED complaining of chest pain.
A/P:
# Chest pain 2/2 ACS/NSTEMI
Trop peaked to 6.07
[address]-T wave changes of inferior-lateral leads
s/p heparin drip, s/p nitro drip
S/p cardiac cath 08/31: PCI to proximal left circumflex stenosis
Echo this admission noted EF 20-25%. Compared to 06/2024, ejection fraction is further diminished and apical/apical lateral akinesis is noted
Cont Dual antiplatelet therapy with daily baby aspirin and Plavix, Cont high intensity statin and beta-armin as tolerated.
Referral for outpatient cardiac rehab.
Cleared by cardiology for discharge to short-term rehab today
#QTc prolongation
Due to ischemia
Replace potassium and magnesium
Improved, QTc 486 today
Avoid QTc prolonging agent
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
PT OT recc SNF for weakness- CM informed
# Chronic HFrEF
Patient does not appear grossly volume overloaded
Continue current med regimen including diuretic dosing, TRISH inhibitor, etc.
Follow I/Os, daily weights, etc.
# Acute urinary tract infection
Urine culture growing pansensitive E. coli
Status post Rocephin x 2 days, will discharge on Keflex for 3 days to complete a 5-day course
Of note, prolonged QTc prohibits the use of Cipro/Levaquin
# Hypokalemia
# Hypomagnesemia
Replaced lytes
# Benign Hypertension, Stable.
Continue current med regimen and adjust as needed.
# Hypothyroidism, Stable.
Continue current T4 supplementation.
TSH WNL at 1.25
# Chronic Back Pain, Stable.
Continue pain control efforts.
DVT Prophylaxis: SQ lovenox
Code Status: DNR
Dispo: SNF per PT OT
Dr. Robbins Updated DIL [phone] per pt request.
Physical Exam
General: No acute distress
HEENT: Normocephalic, Atraumatic, EOMI, MMM
Respiratory: Clear to Auscultation bilaterally
Cardiac: Normal S1/S2, Regular Rate and Rhythm
GI: Soft, Nontender, Nondistended, Normal Bowel Sounds
Extremities: No Clubbing, Cyanosis, or Edema
Neuro: Nonfocal/Grossly Intact
Anticipated Discharge: Today
Subjective/Interval History
-
Date of Service: September 04, 2024
Patient continues to have dysuria. No chest pain. She does have some dyspnea with activity. No shortness of breath at rest. No fever, no vomiting.
Objective Data
-
Labs:
Laboratory Results
09/04/24
04:11
Sodium 137
Potassium 4.4
Chloride 103
Carbon Dioxide 26
BUN 24 H
Creatinine 0.9
Glucose 110 H
Calcium 9.0
Vital Signs:
Vital Signs
Temp Pulse Resp BP Pulse Ox
98.2 F 77 18 112/59 94
09/04/24 08:14 09/04/24 04:06 09/04/24 08:14 09/04/24 04:06 09/04/24 08:14
I&O
09/03/24 09/04/24 09/05/24
06:59 06:59 06:59
Intake Total 720 / 720 360 / 360
Output Total 920 / 920 300 / 300
Balance -200 / -200 60 / 60
[2024-09-04] MEDS: ROCEPHIN 1000 MG IV (09:30)
[2024-09-04] MEDS: STERILE WATER FOR INJECTION 10 ML IV (09:31)
--- NOTE | 2024-09-04 10:04 | W.PN.CARDCBS ---
Today's Communication / Plan
-
Continue current cardiac meds
Discharge planning
Impression / Plan
-
Primary Plastics Fabricator: Dr. Fraser
Impression:
Presents 08/31/2024 with recurrent angina/chest pain despite optimal medical therapy
Abnormal troponin, peaked 6.07
NSTEMI
Multivessel heavily calcified coronary artery disease; deemed poor candidate for CABG
s/p prox Left circumflex 2.75 x 12 mm Medtronic [place] frontier drug-eluting stent 08/31/2024
Hypokalemia
ASTER, resolved
Ischemic Cardiomyopathy
HTN
HLD
DM2
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
Hypothyroidism
History of multiple back surgeries with spinal stimulator in place
History of UTIs
History of Myoclonic jerks secondary to [place], Resolved
Echo 08/31/2024: EF 20 to 25%. Global hypokinesis. Akinesis of the apex and apical lateral wall. Mild AI.
ECHO 06/28/24: Global hypokinesis, EF 38%, mild concentric LVH, stage I diastolic dysfunction, mild MR, aortic sclerosis, mild to moderate AR
ECHO 09/22/2022: EF 57%, mild concentric LVH, trace MR, mild AR, mild TR, PAP 21 mmHg
Cardiac cath 08/31/2024: Heavily calcified coronary arteries. LM: Distal 30% stenosis. LAD diffuse disease, 70% proximal, D2 small caliber diffuse disease up to 70% ostial to proximal. Left circumflex: Ostial 70 to 80%, proximal 90% at takeoff of
OM1 s/p 2.75 x 12 mm Medtronic Eight[place] Four frontier EMILE. RCA: Heavily calcified proximal to mid 85%. Ostial PDA 100% REPLENISHMENT ASSOCIATE with [id number] collaterals. RPL ostial 70%
cath 06/29/24: Heavily calcified coronary arteries with significant multivessel disease. 40% left main, 70% proximal LAD, 85% left circumflex, 85% mid RCA with 100% occluded RPDA
Plan:
Non-STEMI with Multivessel heavily calcified coronary artery disease; deemed poor candidate for CABG in June 2024
-Found to have abnormal troponin, peak 6.07
-Cardiac catheterization 08/31/24 s/p prox Left circumflex 2.75 x 12 mm Medtronic [place] frontier drug-eluting stent 08/31/2024
-Dual antiplatelet therapy with aspirin and Plavix
-Continue high intensity statin
-Metoprolol, Imdur as anti-anginals
Ischemic cardiomyopathy
-Further reduction of EF noted with new akinesis of apex and apical lateral wall on echo 08/31/2024
-GDMT: Continue Toprol, Low-dose lisinopril. Unfortunately hypotension prevents Transition to Entresto or addition of Aldactone.
-Patient has history of UTI and concern for UTI on UA 09/02/24. Would hold on SGLT2 inhibitor at this time
-Elevated LVEDP during LHC, continue low dose PO Lasix
Prolonged QTc
-QTc was 486 ms on ECG 09/04
-Avoid QT prolonging agents
-Keep K greater than 4, mag greater than 2
Concern for UTI. Primary service has started patient on antibiotics
PT/ OT consult with likely need for SNF
Progress Note - Plastics Fabricator
Subjective
Date of Service: September 04, 2024
NAOE. Resting comfortably in bed. No chest pain. No SOB or LE edema.
Objective
Labs:
09/03/24 03:38
09/04/24 04:11
Labs
Hgb 11.4 g/dL (12.0-16.0) L 09/03/24 03:38
Hct 33.6 % (37.0-47.0) L 09/03/24 03:38
Plt Count 221 10^3/uL (130-400) 09/03/24 03:38
PT 13.9 Sec (11.4-14.6) 08/31/24 04:05
INR 1.02 08/31/24 04:05
APTT Cancelled 08/31/24 14:58
Sodium 137 mmol/L (135-145) 09/04/24 04:11
Potassium 4.4 mmol/L (3.5-5.1) 09/04/24 04:11
BUN 24 mg/dl (7-17) H 09/04/24 04:11
Creatinine 0.9 mg/dL (0.6-1.0) 09/04/24 04:11
Glucose 110 mg/dl (70-99) H 09/04/24 04:11
Vital Signs and I&O:
Vital Signs
Temp Pulse Resp BP Pulse Ox
98.2 F 77 18 112/59 94
09/04/24 08:14 09/04/24 04:06 09/04/24 08:14 09/04/24 04:06 09/04/24 08:14
Vital Signs
Temp Pulse Resp BP Pulse Ox
98.2 F 77 18 112/59 94
09/04/24 08:14 09/04/24 04:06 09/04/24 08:14 09/04/24 04:06 09/04/24 08:14
Intake & Output
09/02/24 09/03/24 09/04/24 09/05/24
06:59 06:59 06:59 06:59
Intake Total 250 / 250 720 / 720 360 / 360
Output Total 425 / 425 920 / 920 300 / 300
Balance -175 / -175 -200 / -200 60 / 60
Physical Exam
Physical Exam
Gen: NAD, AA
HEENT: NC/AT, sclera anicteric
Neck: No JVD
CV: RRR, NL s1/s2
Lungs: Crackles at the bases b/l
Abd: S/ND
Ext: No LE edema, R femoral cath site CDI
Skin: Warm, dry
Neuro: Non-focal
[2024-09-04 11:07] VITALS: BP 118/67
--- NOTE | 2024-09-04 11:31 | CM ---
spoke to admissions at [facility], a bed will be avail to her today. pt agreeable. her son/daughter in law want to drive her.
--- NOTE | 2024-09-04 12:19 | W.DCSUMMARY ---
Discharge Summary
Discharge Data
Date of Admission: 08/31/24
Date of Discharge: 09/04/24
-
Pending Results: No
Hospital Course
Discharge diagnosis:
Acute coronary syndrome/myocardial infarction
Chest pain
Abnormal EKG
Frequent falls and weakness prior to admission
Chronic heart failure with reduced ejection fraction
Acute urinary tract infection
Hypokalemia
Hypomagnesemia
Essential hypertension
Hypothyroidism
Chronic back pain
Consults: Cardiology
Procedures:
08/31/2024 cardiac catheterization
1. Heavily calcified coronary arteries with significant multivessel coronary artery disease.
2. Successful percutaneous coronary artery intervention of presumed culprit 90% hazy proximal left circumflex stenosis (JENNIFER II flow, heavily calcified) with one 2.75 x 12 mm Medtronic [place] frontier drug-eluting stent, deployed at 18 katie with an
excellent angiographic result and JENNIFER-3 flow restored into the distal vessel.
3. Residual significant disease as noted above in the RCA, ostial left circumflex and LAD.
4. Elevated LVEDP 21 mmHg.
Hospital course:
89-year-old female with a past medical history of hypertension, hypothyroidism, and chronic back pain presented with chest pain, and was found to have non-ST elevation myocardial infarction. Patient was seen in conjunction with cardiology. Her
troponin peaked at 6.07. She underwent cardiac catheterization on 08/31/2024 with stent placement. Cardiology recommends continuing her home aspirin and Plavix. She is also continued on Imdur and Toprol.
Patient had prolonged QTc interval, secondary to ischemia. Her QTc was monitored, and improved to 486 on the day of discharge.
Patient was found to have an acute urinary tract infection. She was treated with Rocephin for 2 days, and will be discharged on Keflex for 3 more days to complete a 5-day course.
Patient was seen by PT for her weakness and mechanical falls prior to admission. PT recommends short-term rehab. She is medically stable and cleared by cardiology for discharge to short-term rehab. She needs to follow-up with her primary care
doctor 1 week after she leaves rehab, and cardiology in the office as scheduled.
Disposition: Short-term rehab
Discharge planning: Required 43 minutes
Discharge Plan
-
Patient Disposition: Half-Way/SNF
Discharge Diagnosis/Procedures: Heart attack status post angioplasty with stent to left circumflex artery, weakness with frequent falls, chronic heart failure, urinary tract infection
Condition: Fair
Diet: Low Cholesterol
Activity: As tolerated
Driving Restrictions: No driving for 24 hours
Other Services: Cardiac Rehab
Activity Restrictions/Additional Instructions:
Continue your antibiotics for 3 more days for your urinary tract infection.
Please follow-up with your primary care provider 1 week after you leave rehab.
Follow-up with cardiology as scheduled.
Stand Alone Forms: DC Instructions- Cath/EP Lab
Referrals:
[facility] [Outside]
Jaileen Hickman PA-C [Specified Professional Personl] - 09/12/24 1:20 pm
Ivory White PA-C [Family Provider] - in one week
Prescriptions:
New
cephalexin 500 mg capsule
500 mg PO TID 3 Days Qty: 9 0RF
Continued
cholecalciferol (vitamin D3) 2,000 UNIT tablet
2,000 unit PO DAILY
ondansetron HCl 4 mg Tablet
4 mg PO Q6HPRN PRN (Reason: nausea)
acetaminophen [Tylenol Extra Strength] 500 mg Tablet
1,000 mg PO Q6HPRN PRN (Reason: mild pain)
levothyroxine 88 mcg Tablet
88 mcg PO DAILY
duloxetine 60 mg Capsule,Delayed Release(Dr/Ec)
60 mg PO HS
atorvastatin 40 mg Tablet
40 mg PO QPM Qty: 30 0RF
aspirin 81 mg Tablet,Chewable
81 mg PO DAILY Qty: 100 0RF
furosemide 20 mg Tablet
20 mg PO DAILY Qty: 30 0RF
isosorbide mononitrate 60 mg Tablet Extended Release 24 Hr
60 mg PO DAILY 30 Days Qty: 30 0RF
cyanocobalamin (vitamin B-12) 1,000 mcg Tablet
2,000 mcg PO DAILY 30 Days Qty: 60 0RF
clopidogrel 75 mg Tablet
75 mg PO DAILY 30 Days Qty: 30 0RF
metoprolol succinate 25 mg Tablet Extended Release 24 Hr
25 mg PO HS 30 Days Qty: 30 0RF
lisinopril 2.5 mg Tablet
2.5 mg PO DAILY 30 Days Qty: 30 0RF
oxycodone 10 MG tablet
10 mg PO Q6HPRN PRN (Reason: severe pain) Qty: 4 0RF
Changed
pantoprazole [Protonix] 20 MG tablet,delayed release (DR/EC)
40 mg PO DAILY Qty: 0 0RF
Discharge Orders:
Discharge Patient (As Directed); Ordered 09/04/24
Ordered By: Wagner Ochoa
Care Plan Goals
Care Plan Goals:
Problem: Readiness for enhanced knowledge related to diagnosis and treatment plan
Goal: Understand your diagnosis and treatment plan needs, including medications if applicable.
Instructions: Know your diagnosis, underlying causes and treatment plan options, including medications if applicable. Consult with your health care team to learn about your diagnosis and treatment plan, including medications if applicable.
Discharge Date and Time
Discharge Date/Time: 09/04/24 16:18
Print Language: KYRGYZ
--- NOTE | 2024-09-04 15:00 | PTCARENOTE ---
Pt received this am with no c/o of any chest pain or sob. Pt oob to bathroom and chair, gait steady. Pt discharged to [facility] for rehab. Pt's daughter drove her to rehab. Report called to nurse receiving pt.
== END 2024-09-04 16:18 | DRG 322 ==
LOC: IVU 06:25
PROVIDERS: Internal Medicine; Internal Medicine Interventional Cardiology; Nurse Practitioner Family; Physician Assistant Medical; ADMITTING PHYSICIAN Hospitalist; ATTENDING PHYSICIAN Family Medicine; CONSULT PHYSICIAN Internal Medicine Interventional Cardiology; EMERGENCY PHYSICIAN Student in an Organized Health Care Education/Training Program; FAMILY PHYSICIAN Physician Assistant Medical
PROC: 027034Z Dilation of Coronary Artery, One Artery with Drug-eluting Intraluminal Device, Percutaneous Approach (ICD-10-PCS; 2024-08-31)
PROC: 4A023N7 Measurement of Cardiac Sampling and Pressure, Left Heart, Percutaneous Approach (ICD-10-PCS; 2024-08-31)
PROC: B2111ZZ Fluoroscopy of Multiple Coronary Arteries using Low Osmolar Contrast (ICD-10-PCS; 2024-08-31)
DX: I21.4 Non-ST elevation (NSTEMI) myocardial infarction (principal); I50.22 Chronic systolic (congestive) heart failure; F11.20 Opioid dependence, uncomplicated; N17.9 Acute kidney failure, unspecified; N39.0 Urinary tract infection, site not specified; Z66 Do not resuscitate; I11.0 Hypertensive heart disease with heart failure; E87.6 Hypokalemia; E83.42 Hypomagnesemia; E03.9 Hypothyroidism, unspecified; I25.5 Ischemic cardiomyopathy; I25.110 Atherosclerotic heart disease of native coronary artery with unstable angina pectoris
CPT/HCPCS: 93308; 80048; 80053; 81003; 81015; 83735; 84443; 84484; 85025; 85027; 85347; 85610; 85730; 87077; 87086; 87186; 93005; 93321; 93325; 93458; 96365; 96366; 96367; 97162; 97166; 99152; 99153; 99285; C1725; C1760; C1769; C1874; C1887; C1894; C9600; Q9967

== ENCOUNTER → 2024-09-07 11:19 | Outpatient (REF) | payer MEDICARE, OTHER, SELFPAY ==
[2024-09-07 12:46] LABS: % Basophils 0.7 % (0-2); % Eosinophils 0.2 % (0-6); % Immature Granulocytes 2.7 % (0-0.5); % Lymphocytes 17.8 % (20.5-51.1); % Neutrophils 65.6 % (42.2-75.2); Absolute Immature Granulocytes 0.2 10^3/uL (0-0.05); Absolute Monocytes 0.7 10^3/uL (0.1-0.6); Absolute Neutrophils 3.6 10^3/uL (1.4-6.5); Hematocrit 30.5 % (37.0-47.0); Hemoglobin 10.4 g/dL (12.0-16.0); Mean Corp Hgb Conc. 34.1 g/dL (33.0-37.0); Mean Corpuscular Hgb 33.8 pg (27.0-31.0); Mean Platelet Volume 10.4 fL (7.4-10.4); Nucleated Red Blood Cells % 0 %; Platelet Count 257 10^3/uL (130-400); Red Blood Cell Count 3.08 10^6/uL (4.20-5.40); Red Cell Dist. Width 13.1 % (11.5-14.5); White Blood Cell Count 5.5 10^3/uL (4.8-10.8)
[2024-09-07 13:52] LABS: Blood Urea Nitrogen 25 mg/dl (7-17); Calcium 8.6 mg/dl (8.4-10.2); Carbon Dioxide 29 mmol/L (22-30); Chloride 100 mmol/L (98-107); Glucose 118 mg/dl (70-99); Potassium 3.9 mmol/L (3.5-5.1); Sodium 139 mmol/L (135-145); eGFR 54.19
== END ==
LOC: OLABP 11:19
PROVIDERS: ATTENDING PHYSICIAN Family Medicine
DX: I21.4 Non-ST elevation (NSTEMI) myocardial infarction (principal); M62.81 Muscle weakness (generalized); R26.2 Difficulty in walking, not elsewhere classified; R29.6 Repeated falls; I25.10 Atherosclerotic heart disease of native coronary artery without angina pectoris; N39.0 Urinary tract infection, site not specified; B96.20 Unspecified Escherichia coli [E. coli] as the cause of diseases classified elsewhere; I11.0 Hypertensive heart disease with heart failure; E87.6 Hypokalemia; E87.1 Hypo-osmolality and hyponatremia; E78.5 Hyperlipidemia, unspecified; I50.20 Unspecified systolic (congestive) heart failure; E03.9 Hypothyroidism, unspecified
CPT/HCPCS: 36415; 80048; 85025

== ENCOUNTER → 2024-10-31 12:58 | Outpatient (REF) | payer MEDICARE, OTHER, SELFPAY | LOC: HWRAD 12:58 | PROVIDERS: ATTENDING PHYSICIAN Student in an Organized Health Care Education/Training Program | DX: R10.13 Epigastric pain (principal) | CPT/HCPCS: 76700 ==

== ENCOUNTER → 2025-01-17 15:36 | Outpatient (REF) | payer MEDICARE, OTHER, SELFPAY ==
[2025-01-17 17:20] LABS: Blood Urea Nitrogen 26 mg/dl (7-17); Calcium 9.1 mg/dl (8.4-10.2); Carbon Dioxide 31 mmol/L (22-30); Chloride 103 mmol/L (98-107); Glucose 95 mg/dl (70-99); Potassium 4.2 mmol/L (3.5-5.1); Sodium 142 mmol/L (135-145); eGFR > 60.00
== END ==
LOC: RCS 15:36
PROVIDERS: ATTENDING PHYSICIAN Physician Assistant Medical; FAMILY PHYSICIAN Physician Assistant Medical
DX: I25.5 Ischemic cardiomyopathy (principal)
CPT/HCPCS: 36415; 80048; 93306

== ENCOUNTER → 2025-02-18 08:56 | Outpatient (REF) | payer MEDICARE, OTHER, SELFPAY | LOC: RAD 08:56 | PROVIDERS: ATTENDING PHYSICIAN Physician Assistant; FAMILY PHYSICIAN Physician Assistant Medical | DX: R13.10 Dysphagia, unspecified (principal) | CPT/HCPCS: 74246 ==

== ENCOUNTER → 2025-03-04 17:09 | Outpatient (REF) | payer MEDICARE, OTHER, SELFPAY ==
[2025-03-04 18:40] LABS: Vitamin B12 575 pg/ml (239-931)
== END ==
LOC: REG 17:09
PROVIDERS: ATTENDING PHYSICIAN Internal Medicine; FAMILY PHYSICIAN Physician Assistant Medical
DX: D53.9 Nutritional anemia, unspecified (principal); D51.0 Vitamin B12 deficiency anemia due to intrinsic factor deficiency
CPT/HCPCS: 36415; 82607

== ENCOUNTER 2025-05-16 13:54 | Emergency (ER) | payer MEDICARE, OTHER, SELFPAY ==
[2025-05-16 13:54] VITALS: BMI 23.2
[2025-05-16 14:06] VITALS: BP 140/67
[2025-05-16 14:40] LABS: Hematocrit 34.1 % (37.0-47.0); Hemoglobin 11.3 g/dL (12.0-16.0); Mean Corp Hgb Conc. 33.1 g/dL (33.0-37.0); Mean Corpuscular Volume 93.7 fL (81.0-99.0); Nucleated Red Blood Cells % 0 %; Platelet Count 287 10^3/uL (130-400); Red Cell Dist. Width 12.3 % (11.5-14.5)
[2025-05-16 14:51] LABS: ALT (SGPT) 18 U/L (0-35); AST (SGOT) 19 U/L (14-36); Albumin 4.2 g/dl (3.5-5.0); Alkaline Phosphatase 87 U/L (38-126); Blood Urea Nitrogen 40 mg/dl (7-17); Calcium 9.0 mg/dl (8.4-10.2); Carbon Dioxide 29 mmol/L (22-30); Chloride 102 mmol/L (98-107); Glucose 127 mg/dl (70-99); Potassium 4.4 mmol/L (3.5-5.1); Sodium 139 mmol/L (135-145); Total Protein 6.8 g/dl (6.3-8.2); eGFR 43.27
[2025-05-16 15:02] LABS: Troponin I < 0.012 ng/ml
[2025-05-16 19:27] VITALS: BP 151/57
[2025-05-16 20:00] VITALS: BP 136/54
[2025-05-16 20:02] LABS: Troponin I < 0.012 ng/ml
--- NOTE | 2025-05-16 20:31 | ED.GENMED ---
History of Present Illness
General
Chief Complaint: Chest Pain
Source: patient
Exam Limitations: none
Time Seen by Provider: 05/16/25 17:57
Nursing documentation reviewed up to this point in time: agreed with
History of Present Illness
History of Present Illness:
89-year-old female past ministry of CAD, hypertension hyperlipidemia presenting to the emergency department today with concerns of intermittent chest pain over the past week some ongoing symptoms earlier today took 2 nitro symptoms are now resolved.
Was off of Plavix for a week up until 4 days ago due to getting an injection to her neck for neck pain.
Past History
Past History
ED Past Medical History: CAD, HTN, Hypercholesterolemia, Other (arthritis, Back pain, Sleep apnea, DVT right arm, Anemia, Ovarian cyst) and Other (Chronic low back pain, narcotic dependent)
ED Past Surgical History: Cholecystectomy, Gynecological (Hysterectomy), Orthopedic (Spinal stimulator, Laminectomy), Urological (Bladder sling) and Other (Cataracts, Moh's procedure)
Social History
Tobacco: Non-smoker
Alcohol: None
Personal:
Living: alone
Employment: Retired
Family History
Family History: Other (Noncontributory)
Review of Systems
Review of Systems
Allergies reviewed?: Yes
All Other Systems: ROS reviewed and negative except as documented in HPI and ROS
Phy Exam
Physical Exam
Physical Exam:
GENERAL: Alert , in no apparent distress
EYE: pupils equal and reactive
NECK: Supple, no significant adenopathy.
ENT: o/p clr, mmm.
CARDIAC: Regular rate and rhythm .
LUNGS: Clear breath sounds bilaterally, no acute respiratory distress, no wheezes/rales/rhonchi
ABDOMEN: Soft, without focal tenderness, no r/g, no cvat
NEUROLOGICAL: Alert and oriented, no focal neuro deficits
SKIN: Warm and dry, skin intact.
MUSCULOSKELETAL: No edema, well perfused.
PSYCH: Normal and appropriate interaction.
Scores
Heart Score for Chest Pain Patients
STEMI patient?: No
History: Slightly or Non-Suspicious
ECG: Normal
Age: >/= 65 years
Risk Factors: >/= 3 Risk Factors or History of CAD
Troponin: </= Normal Limit
Heart Score for Chest Pain Patients: 4
Heart Score Risk: 20.3% MACE over next 6 weeks
Course
Orders/Labs/Results
Orders:
Orders
05/16/25 13:55
EKG [Electrocardiogram (*1)] Urgent
Reason for Study: Chest Pain
EKG- Treatment ONCE
05/16/25 14:11
CR Chest - 2 Views Urgent
Comment:
Reason For Exam: chest pain
05/16/25 14:28
Complete Blood Count/With Diff Urgent
Comprehensive Metabolic Panel Urgent
Troponin I Urgent
05/16/25 18:50
Electrocardiogram (*1) Urgent
Reason for Study: Chest Pain
EKG- Treatment ONCE
Troponin I Urgent
Abnormal Lab Results
05/16/25
14:28
RBC 3.64 L 10^6/uL
(4.20-5.40)
Hgb 11.3 L g/dL
(12.0-16.0)
Hct 34.1 L %
(37.0-47.0)
Abs Immat Gran (auto) 0.1 H 10^3/uL
(0-0.05)
Absolute Neuts (auto) 7.1 H 10^3/uL
(1.4-6.5)
Absolute Lymphs (auto) 0.7 L 10^3/uL
(1.2-3.4)
Immature Gran % 0.6 H %
(0-0.5)
Neutrophils % 84.5 H %
(42.2-75.2)
Lymphocytes % 8.6 L %
(20.5-51.1)
BUN 40 H mg/dl
(7-17)
Creatinine 1.2 H mg/dL
(0.6-1.0)
Glucose 127 H mg/dl
(70-99)
05/16/25 14:28
05/16/25 14:28
Vital Signs
Initial and Last Documented VS:
Initial Vital Signs
Temp Pulse Resp BP Pulse Ox
97.9 F 55 18 140/67 96
05/16/25 14:06 05/16/25 14:06 05/16/25 14:06 05/16/25 14:06 05/16/25 14:06
Last Documented Vital Signs
Temp Pulse Resp BP Pulse Ox
98.6 F 51 16 123/50 99
05/16/25 19:31 05/16/25 20:41 05/16/25 20:41 05/16/25 20:41 05/16/25 20:41
MDM/Problems Addressed
MDM/Problems Addressed:
89-year-old female presenting to the emergency department today with concerns of chest pain fully resolved at this point was achy earlier today no associated shortness of breath nausea vomiting or diaphoresis. Vital signs normal on arrival labs
unremarkable troponin negative EKG nonischemic chest x-ray normal. Patient assessed no symptoms for multiple hours here repeated troponin EKG normal. Patient advised for close cardiac follow-up otherwise return precautions given.
*Pulse Oximetry
SaO2: 98
Oxygen Mode of Delivery: Room air
Patient hypoxic: no (99)
*Critical Care Note
Total Time (30-74mins, 75-104mins- exclusive of procedures): Not Applicable
ED Attending Note
-
Portions of this chart may have been created with voice recognition software.� Occasional wrong word or��sound alike� substitutions may have occurred due to the inherent limitations of voice recognition software.
Discharge Plan
Departure
Patient Disposition: Home (Routine Discharge)
Date of Disposition: 05/16/25
Time of Disposition: 20:31
Patient with high blood pressure during this ER visit?: No
Condition: Good
Covid-19: Not Applicable
Discharge Problem:
Chest pain
Instructions: Chest Pain DCA Follow Up
Prescriptions:
No Action
cholecalciferol (vitamin D3) 2,000 UNIT tablet
2,000 unit PO DAILY
ondansetron HCl 4 mg Tablet
4 mg PO Q6HPRN PRN (Reason: nausea)
acetaminophen [Tylenol Extra Strength] 500 mg Tablet
1,000 mg PO Q6HPRN PRN (Reason: mild pain)
levothyroxine 88 mcg Tablet
88 mcg PO DAILY
duloxetine 60 mg Capsule,Delayed Release(Dr/Ec)
60 mg PO HS
atorvastatin 40 mg Tablet
40 mg PO QPM Qty: 30 0RF
aspirin 81 mg Tablet,Chewable
81 mg PO DAILY Qty: 100 0RF
furosemide 20 mg Tablet
20 mg PO DAILY Qty: 30 0RF
isosorbide mononitrate 60 mg Tablet Extended Release 24 Hr
60 mg PO DAILY 30 Days Qty: 30 0RF
cyanocobalamin (vitamin B-12) 1,000 mcg Tablet
2,000 mcg PO DAILY 30 Days Qty: 60 0RF
clopidogrel 75 mg Tablet
75 mg PO DAILY 30 Days Qty: 30 0RF
metoprolol succinate 25 mg Tablet Extended Release 24 Hr
25 mg PO HS 30 Days Qty: 30 0RF
lisinopril 2.5 mg Tablet
2.5 mg PO DAILY 30 Days Qty: 30 0RF
cephalexin 500 mg capsule
500 mg PO TID 3 Days Qty: 9 0RF
pantoprazole [Protonix] 20 MG tablet,delayed release (DR/EC)
40 mg PO DAILY Qty: 0 0RF
oxycodone 10 MG tablet
10 mg PO Q6HPRN PRN (Reason: severe pain) Qty: 4 0RF
Referrals:
Ivory White PA-C [Family Provider, [facility]]
Activity Restrictions/Additional Instructions:
You came to the emergency department today with concerns of chest pain. Here you had a reassuring assessment. Please follow up closely with cardiology. Return for any worsening, new or concerning symptoms.
Interventions
Interventions:
*Risk Screen - Suicide Last Done: 05/16/25 14:12
*General Assessment Last Done: 05/16/25 19:30
*Neglect/Abuse Screening Last Done: 05/16/25 14:12
*ED- Fall Risk Assessment Last Done: 05/16/25 19:30
*Nursing Disposition Last Done: 05/16/25 20:41
ED- Cardiac Assessment Last Done: 05/16/25 19:30
Discharge Date and Time
Discharge Date/Time: 05/16/25 20:42
Print Language: BENINESE
[2025-05-16 20:41] VITALS: BP 123/50
== END 2025-05-16 20:42 | disposition home or self-care (01) ==
LOC: EMR 13:54
PROVIDERS: Emergency Medicine; Physician Assistant; EMERGENCY PHYSICIAN Emergency Medicine; FAMILY PHYSICIAN Physician Assistant Medical
DX: R07.9 Chest pain, unspecified (principal); I25.10 Atherosclerotic heart disease of native coronary artery without angina pectoris; I10 Essential (primary) hypertension; E78.00 Pure hypercholesterolemia, unspecified; G47.30 Sleep apnea, unspecified; M19.90 Unspecified osteoarthritis, unspecified site; M54.50 Low back pain, unspecified; G89.29 Other chronic pain; Z79.02 Long term (current) use of antithrombotics/antiplatelets; Z79.82 Long term (current) use of aspirin; Z86.718 Personal history of other venous thrombosis and embolism
CPT/HCPCS: 99284; 71046; 80053; 84484; 85025; 93005

== ENCOUNTER 2025-06-28 17:31 | Emergency (ER) | payer MEDICARE, OTHER, SELFPAY ==
[2025-06-28 17:55] VITALS: BMI 24.3
[2025-06-28 18:00] VITALS: BP 160/63
[2025-06-28] MEDS: DILAUDID 0.5 MG IV (18:02)
[2025-06-28 18:09] VITALS: BP 160/63
[2025-06-28 18:44] VITALS: BP 132/64
[2025-06-28 19:00] VITALS: BP 126/51
[2025-06-28 20:01] VITALS: BP 150/79
[2025-06-28] MEDS: DILAUDID 0.25 MG IV (20:09)
--- NOTE | 2025-06-28 23:35 | ED.MUSCINJ ---
HPI-Injury
General
Chief Complaint: Fall
Source: patient
Exam Limitations: none
Time Seen by Provider: 06/28/25 18:00
Nursing documentation reviewed up to this point in time: agreed with
History of Present Illness-Injury
Is this injury a work related problem?: No
Is pt an associate of [facility]?: No
Initial Injury comments:
Patient to ED after trip and fall at home. States she fell onto her right side. Hit head on floor, no LOC. Able to get self up and call daughter. COmplains of bleeding from right parietal scalp, pain to right shoulder. 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
Past History
Past History
ED Past Medical History: CAD, HTN, Hypercholesterolemia, Other (arthritis, Back pain, Sleep apnea, DVT right arm, Anemia, Ovarian cyst) and Other (Chronic low back pain, narcotic dependent)
ED Past Surgical History: Cholecystectomy, Gynecological (Hysterectomy), Orthopedic (Spinal stimulator, Laminectomy), Urological (Bladder sling) and Other (Cataracts, Moh's procedure)
Social History
Tobacco: Non-smoker
Alcohol: None
Personal:
Living: alone
Employment: Retired
Family History
Family History: Other (Noncontributory)
Review of Systems
Review of Systems
Allergies reviewed?: Yes
All Other Systems: ROS reviewed and negative except as documented in HPI and ROS
Constitutional: Reports no symptoms
EENT: Reports no symptoms
Respiratory: Reports no symptoms
Cardiac: Reports no symptoms
ABD/GI: Reports no symptoms
: Reports no symptoms
Musculoskeletal: Reports joint pain (pain to right shoulder)
Skin: Reports other (hematoma and abrasion right parietal scalp)
Neurological: Reports no symptoms
Psychiatric: Reports no symptoms
Musculoskeletal Injury Exam
Musculoskeletal Injury Exam
Right Shoulder:
Pain with Movement?: Moderate
Tender to palpation?: Moderate
Soft tissue swelling?: Mild
External deformity and angulation?: None
Joint effusion?: None
Contusion?: Moderate
Hematoma-local bleeding into tissue?: Mild
Strain- Sprain- Tear (Connective tissue injury)?: None
Crepitus with movement?: No
Joint instability?: No
Malalignment/deformity?: No
Range of motion: Limited
Distal skin color and temperature: normal-warm & good color
Capillary Refill: normal
Normal distal neurovascular exam?: Yes
Peripheral Pulses: radial (right): 3+
Phy Exam
General Physical Exam
General Presentation: moderate distress
General age: appears stated age
General Skin: warm and dry
General Habitus: normal
General Mental: alert
Cardiovascular Exam
Cardiovascular Exam: regular rate/rhythm
Pulmonary Exam
Pulmonary Exam: no respiratory distress and chest non tender
Gastrointestinal Exam
Gastrointestinal Exam: non tender and soft
Musculoskeletal Exam
Musculoskeletal Exam: neuro vasc intact
Skin Exam
Skin Exam: normal color, warm/dry and no rash
Psychiatric Exam
Psychiatric Exam: normal mood/affect
Injury Course
Orders/Labs/Results
Orders:
Orders
06/28/25 17:56
CT Head W/o Iv Contrast Urgent
Comment:
Reason For Exam: fall with head and neck strike
CR Shoulder - Right Min 2 View Urgent
Comment:
Reason For Exam: fall with shoulder strike and deformity
06/28/25 17:59
HYDROmorphone [Dilaudid] 0.5 mg IV NOW STA
06/28/25 18:05
CT Cervical Spine W/o Iv Contr Urgent
Comment:
Reason For Exam: fall
06/28/25 19:54
Shoulder Immobilizer Right- Tx ONCE
06/28/25 20:02
HYDROmorphone [Dilaudid] 0.25 mg IV NOW STA
*Radiology
Radiology exam reviewed: radiology read reviewed
*Pulse Oximetry
SaO2: 93
Oxygen Mode of Delivery: Room air
Patient hypoxic: no
*Critical Care Note
Total Time (30-74mins, 75-104mins- exclusive of procedures): Not Applicable
Update Note
Update Note:
Patient to ED after trip and fall at home. +head strike, no LOC. Hematoma to right parietal scalp with abrasion. 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 No active bleedin in ED. Head CT neg for acute findings. RIght shoulder reveals mid shaft right clavicle fx,
displace. No evidence of pneumothorax. SHe was placed in a shoulder immobilizer sling, pain medication administered in ED. She iwill be discharged home with daughter and will follow up with ortho this week. Given instructions on s/s to return to
ED and she is agreeable to plan
ED Attending Note
-
Portions of this chart may have been created with voice recognition software.� Occasional wrong word or��sound alike� substitutions may have occurred due to the inherent limitations of voice recognition software.
Discharge Plan
Departure
Patient Disposition: Home (Routine Discharge)
Date of Disposition: 06/28/25
Time of Disposition: 20:35
Patient with high blood pressure during this ER visit?: No
Condition: Good
Covid-19: Not Applicable
Discharge Problem:
Fracture of clavicle, Head injury
Instructions: Head Injury in Adults (DC), Contusion (DC), Preventing falls in adults, Broken Collarbone ED, Cold therapy for pain, How to use a shoulder sling - ED (DC)
Prescriptions:
No Action
cholecalciferol (vitamin D3) 2,000 UNIT tablet
2,000 unit PO DAILY
ondansetron HCl 4 mg Tablet
4 mg PO Q6HPRN PRN (Reason: nausea)
acetaminophen [Tylenol Extra Strength] 500 mg Tablet
1,000 mg PO Q6HPRN PRN (Reason: mild pain)
levothyroxine 88 mcg Tablet
88 mcg PO DAILY
duloxetine 60 mg Capsule,Delayed Release(Dr/Ec)
60 mg PO HS
atorvastatin 40 mg Tablet
40 mg PO QPM Qty: 30 0RF
aspirin 81 mg Tablet,Chewable
81 mg PO DAILY Qty: 100 0RF
furosemide 20 mg Tablet
20 mg PO DAILY Qty: 30 0RF
isosorbide mononitrate 60 mg Tablet Extended Release 24 Hr
60 mg PO DAILY 30 Days Qty: 30 0RF
cyanocobalamin (vitamin B-12) 1,000 mcg Tablet
2,000 mcg PO DAILY 30 Days Qty: 60 0RF
clopidogrel 75 mg Tablet
75 mg PO DAILY 30 Days Qty: 30 0RF
metoprolol succinate 25 mg Tablet Extended Release 24 Hr
25 mg PO HS 30 Days Qty: 30 0RF
lisinopril 2.5 mg Tablet
2.5 mg PO DAILY 30 Days Qty: 30 0RF
cephalexin 500 mg capsule
500 mg PO TID 3 Days Qty: 9 0RF
pantoprazole [Protonix] 20 MG tablet,delayed release (DR/EC)
40 mg PO DAILY Qty: 0 0RF
oxycodone 10 MG tablet
10 mg PO Q6HPRN PRN (Reason: severe pain) Qty: 4 0RF
Referrals:
Ivory White PA-C [Family Provider, Family Practice]
Presley Perez MD [Active, Orthopedics] - Call in 1-3 days for appt
Interventions
Interventions:
*Risk Screen - Suicide Last Done: 06/28/25 17:36
*General Assessment Last Done: 06/28/25 18:09
*Neglect/Abuse Screening Last Done: 06/28/25 17:36
*ED- Fall Risk Assessment Last Done: 06/28/25 18:09
*ED COVID-19 Vaccine History Last Done: 06/28/25 18:09
*Nursing Disposition Last Done: 06/28/25 21:00
ED-Musculoskeletal Assessment Last Done: 06/28/25 19:00
ED- Neurological Assessment Last Done: 06/28/25 19:00
ED-Skin Assessment Last Done: 06/28/25 19:00
Discharge Date and Time
Discharge Date/Time: 06/28/25 21:10
Print Language: BARBADIAN
--- NOTE | 2025-06-30 09:58 | CM ---
Addendum entered by Monalisa Khan 06/30/25 12:27:
VN order obtained from ED staff
Dtr in agreement with plan for VN
Referral to [facility] via [facility] and pt accepted for admission
[facility] aware of R. shoulder restrictions until f/u with ortho
Original Note:
ED CM received call from lawandar/Milena asking for assistance [phone]
Pt discharged from ED on 06/28- pt will fracture and R. shoulder immobilizer with plans to F/U with ortho this week
They are requesting a DINKEY ENGINE FIRER/FIREMAN a few hours daily to help with personal care tasks- bathing, meals, home management
Pt resides alone and dtr who lives down the street needs to go to work this upcoming week
Private duty list emailed to david/[email or web address] at [email or web address]
SNF placement also discussed- pt without qualifying stay
Call with [employer] and pt is eligible for the [facility] [employer] waiver
Call with [facility] admission- would be willing to accept pt from home with [employer] auth if needed
Message for [facility] [place] liaison inquiring if they would consider acceptance from home vs hospital- awaiting response
Pt would need participating physician note from PCP office if [employer] auth to be pursued from community
Provided this info to dtr- she plans to pursue private duty at this time
Dtr will follow up with CM if SNF placement needs to be pursued
== END 2025-06-28 21:10 | disposition home or self-care (01) ==
LOC: EMR 17:31
PROVIDERS: EMERGENCY PHYSICIAN Emergency Medicine; FAMILY PHYSICIAN Physician Assistant Medical
DX: S42.021A Displaced fracture of shaft of right clavicle, initial encounter for closed fracture (principal); S09.90XA Unspecified injury of head, initial encounter; W01.10XA Fall on same level from slipping, tripping and stumbling with subsequent striking against unspecified object, initial encounter; Y92.009 Unspecified place in unspecified non-institutional (private) residence as the place of occurrence of the external cause; I25.10 Atherosclerotic heart disease of native coronary artery without angina pectoris; I10 Essential (primary) hypertension; E78.00 Pure hypercholesterolemia, unspecified; G47.30 Sleep apnea, unspecified; D64.9 Anemia, unspecified; F11.20 Opioid dependence, uncomplicated; M19.90 Unspecified osteoarthritis, unspecified site; Z86.718 Personal history of other venous thrombosis and embolism; Z90.49 Acquired absence of other specified parts of digestive tract; Z90.710 Acquired absence of both cervix and uterus
CPT/HCPCS: 99284; 96374; 96376; 70450; 72125; 73030